=== PATIENT | male | born 1935 | race Caucasian/White ===

== ENCOUNTER 2020-12-01 13:54 | Inpatient (IN) ==
[2020-12-01 16:06] LABS: Basophils # (auto) 0.01 K/uL (0-0.2); Basophils % (auto) 0.1 %; Eosinophils # (auto) 0.05 K/uL (0-0.5); Eosinophils % (auto) 0.6 %; Hematocrit (blood only) 38.5 % (42-52); Hemoglobin 12.7 g/dL (14.0-18.0); Immature Granulocytes # (auto) 0.01 K/uL (0.00-0.02); Immature Granulocytes % (auto) 0.1 %; Lymphocytes # (auto) 1.01 K/uL (1.2-3.4); Lymphocytes % (auto) 11.5 %; Mean Corpuscular Hemoglobin 31.8 pg (25-34); Mean Corpuscular Volume 96.3 fL (80-100); Mean Platelet Volume 11.7 fL (7.4-10.4); Monocytes # (auto) 0.55 K/uL (0.11-0.59); Monocytes % (auto) 6.3 %; Neutrophils # (auto) 7.15 K/uL (1.4-6.5); Neutrophils % (auto) 81.4 %; Platelet Count 254 K/uL (130-400); RDW Coefficient of Variation 15.5 % (11.5-14.5); RDW Standard Deviation 54.8 fL (36.4-46.3); White Blood Count 8.78 K/uL (4.8-10.8)
[2020-12-01 16:28] LABS: Magnesium 1.8 mg/dl (1.8-2.4)
--- NOTE | 2020-12-01 16:36 | XRay Report ---
XR chest 1V portable CLINICAL HISTORY: sob COMPARISON STUDY: No previous studies for comparison. FINDINGS: There is no pneumothorax. A small right pleural effusion is noted. Right lower lung airspac e opacity is present. Moderate cardiomegaly is noted. There is no evidence for overt pulmonary edema. IMPRESSION: 1. Small right pleural effusion. Right lower lung airspace opacity which may reflect an infectious pr ocess or asymmetric pulmonary edema. Radiographic follow-up is recommended to ensure resolution. 2. Moderate cardiomegaly. ACT 112: Negative or not required by law. Electronically signed by: Ron Choudhary M.D. 12/01/2020 4:34 PM
[2020-12-01 16:40] LABS: Albumin Globulin Ratio 0.8 (0.9-2); Albumin Level 3.2 gm/dl (3.4-5.0); BUN Creatinine Ratio 51.3 (10-20); Bilirubin,Total 0.8 mg/dl (0.2-1); Est GFR (African American) 81.3 ml/min; Est GFR (Non-African American) 70.1 ml/min; Globulin 4.1 gm/dl (2.5-4.0); Potassium 4.9 mmol/L (3.5-5.1); Total Protein 7.3 gm/dl (6.4-8.2)
[2020-12-01] MEDS ORDERED: FUROSEMIDE 40 MG/4 ML VIAL IV STA (16:43)
--- NOTE | 2020-12-01 17:31 | Emergency Department Note ---
History of Present Illness General Chief Complaint: Edema To Extremity Stated Complaint: LIGHT HEADED, BLE EDEMA Time Seen by Provider: 12/01/20 15:27 History of Present Illness Provider Complaint: shortness of breath Onset (ago): day(s) (10) Severity: moderate Current Pain Intensity: 0 Relieved By: + nothing Exacerbated By: + nothing Context: + medication noncompliance; no choking/aspiration, no recent travel, no trauma/injury or no elevated blood glucose (Low blood sugars) Known history of: congestive heart failure and diabetes Associated symptoms: + dizziness; no chest pain, no pain with inspiration, no fever, no cough, no wheezing, no sputum production, no orthopnea, no lower extremity pain, no polyuria, no polydipsia, no paresthesias, no palpitations, no carpopedal spasm, no hemoptysis, no diaphoresis, no syncope or no abdominal pain HPI Narrative: Patient also reports fatigue diarrhea and nausea. Patient reports his sugars have been not in control have been Recurrently low. He states he is noncompliant with his diabetes medications. Patient recently presented to [facility] for this and was diagnosed with cellulitis and started on antibiotics. After he started the antibiotics he developed the diarrhea. Patient denies any chest pain. Patient is not on any blood thinners. Related Data Home oxygen amount: as needed at night Home Medications Medication Instructions Recorded Confirmed Type aspirin 81 mg chewable tablet 81 mg PO DAILY 12/01/20 12/01/20 History atorvastatin 80 mg tablet (Lipitor) 80 mg PO DAILY 12/01/20 12/01/20 History azelastine 137 mcg (0.1 %) nasal 1 spray INTRANASAL BID 12/01/20 12/01/20 History spray aerosol cetirizine 10 mg tablet 10 mg PO DAILY 12/01/20 12/01/20 History digoxin 125 mcg (0.125 mg) tablet 125 mcg PO PM 12/01/20 12/01/20 History (Digox) furosemide 20 mg tablet (Lasix) 60 mg PO DAILY 12/01/20 12/01/20 History glipizide 10 mg tablet, extended 10 mg PO DAILY 12/01/20 12/01/20 History release 24 hr lisinopril 5 mg tablet (Zestril) 2.5 mg PO DAILY 12/01/20 12/01/20 History metformin 1,000 mg tablet 1,000 mg PO BIDWMEAL 12/01/20 12/01/20 History metoprolol succinate 25 mg 50 mg PO BID 12/01/20 12/01/20 History tablet,extended release 24 hr (Toprol XL) potassium chloride 10 mEq 20 meq PO DAILY 12/01/20 12/01/20 History tablet,extended release (Klor-Con) vitamin-ferrous sulfate 1 tab PO DAILY 12/01/20 12/01/20 History 27 mg iron-folic acid 0.8 mg tablet rabeprazole 20 mg tablet,delayed 20 mg PO BID 12/01/20 12/01/20 History release (AcipHex) temazepam 7.5 mg capsule (Restoril) 7.5 mg PO HS PRN 12/01/20 12/01/20 History trazodone 100 mg tablet 100 mg PO HS PRN 12/01/20 12/01/20 History Allergies Allergy/AdvReac Type Severity Reaction Status Date / Time No Known Allergies Allergy Unverified 12/01/20 17:09 Past Med/Surg History Medical History (Updated 12/01/20 @ 18:07 by Vasu Schwarz) Aortic stenosis Asthma Atrial fibrillation CHF (congestive heart failure) Diabetes HTN (hypertension) Hyperlipidemia Insomnia Pulmonary hypertension Surgical History (Updated 12/01/20 @ 17:27 by Vasu Schwarz) No pertinent past surgical history Social History Smoking Status: Never smoker Feels Safe at Home: Yes Review of Systems A total of 10 systems reviewed and were otherwise negative Physical Exam Vital Signs: Vital Signs - 24 hr 12/01/20 14:02 12/01/20 15:06 12/01/20 16:10 Temperature 36.1 C L Temperature Source Temporal Artery Sc an Pulse Rate 89 93 H 96 H Pulse Rate from Sp O2 Sensor 97 H 105 H Respiratory Rate 20 24 22 Respiratory Effort / Characteristics Non-Labored Sponta neous Respiratory Depth Normal Respiratory Patter n Regular Blood Pressure 100/57 L 141/78 H 133/89 Blood Pressure Marsha n 71 99 103 Pulse Oximetry 94 91 92 Oxygen Delivery Me thod Room Air Oxygen Flow Rate Sepsis Recent Feve r Within 48 Hours No Sepsis New/Unexpla ined Change in Men opal Status No Sepsis Action Take n by Nursing No Action Required 12/01/20 16:30 12/01/20 17:01 Temperature Temperature Source Pulse Rate 85 97 H Pulse Rate from Sp O2 Sensor 92 H 92 H Respiratory Rate 22 24 Respiratory Effort / Characteristics Respiratory Depth Respiratory Patter n Blood Pressure 119/62 100/70 Blood Pressure Marsha n 81 80 Pulse Oximetry 94 97 Oxygen Delivery Me thod Oxygen Flow Rate 2 Sepsis Recent Feve r Within 48 Hours Sepsis New/Unexpla ined Change in Men opal Status Sepsis Action Take n by Nursing Physical Exam: Physical Exam GENERAL: He is oriented to person, place, and time. He appears well-developed and well-nourished. He does not appear distressed. HENT: Exam performed. - Head: Normocephalic and atraumatic. - Right Ear: External ear normal. No mastoid tenderness. - Left Ear: External ear normal. No mastoid tenderness. - Mouth/Throat: The oropharynx is clear and moist. No trismus in the jaw. No dental abscesses or uvula swelling. No oropharyngeal exudate or tonsillar abscesses. EYES: Conjunctivae and EOM are normal. Pupils are equal, round, and reactive to light. Right eye exhibits no discharge. Left eye exhibits no discharge. No scleral icterus. NECK: Normal range of motion. Neck supple. No JVD present. No spinous process tenderness present. No carotid bruit present. No rigidity. No tracheal deviation and normal range of motion present. No Brudzinski's sign and no Kernig's sign noted. CV: Normal rate, irregular rhythm, normal heart sounds and intact distal pulses. Palpable radial pulses bue. RESP: Diminished breath sounds bilaterally. Inspiratory rales at the bases bilaterally. - Chest Wall: He exhibits no tenderness. ABD: The abdomen is soft. Bowel sounds are normal. He has no distension. No mass is present. There is no tenderness. There is no rebound, no guarding, no Ramirez's sign and no tenderness at McBurney's point. Rovsig negative. MUSC/SKEL: 3+ pitting edema of the bilateral lower extremities. NEURO: He is alert and oriented to person, place, and time. He has normal strength. No cranial nerve deficit or sensory deficit. Coordination and gait normal. GCS eye subscore is 4. GCS verbal subscore is 5. GCS motor subscore is 6. Cerebellar tests wnl. SKIN: No erythema or warmth of the bilateral lower extremities. Stasis dermatitis changes over the bilateral lower extremities.No erythema or warmth over the bilateral lower extremities. PSYCH: He has a normal mood and affect. Behavior is normal. Judgment and thought content normal. Course Course 1527: The patient was evaluated in room B12. A complete history and physical exam was performed Cardiac monitoring: An order was placed for continuous cardiac monitoring. The monitor shows a rate of 100 with atrial fibrilation rhythm 1710: Vital signs stable. Imaging shows cardiomegaly with fluid overload. proBNP and troponin are elevated. White blood cell count and lactic acid level are within normal limits. Patient's glucose is 47. Patient alert oriented x3. Patient was given a turkey sandwich and Gatorade to drink. Patient is not reporting chest pain. Is thought that the troponin elevation is due to his CHF exacerbation and not due to ACS. Patient be admitted to the [facility]ist team will trend the troponin. Discussed with Rachel Dickerson states to admit to Dr. Warner. Administered Medications Discontinued Medications Furosemide (Furosemide 40 Mg/4 Ml Vial) 40 mg IV NOW STA Stop: 12/01/20 16:44 Last Admin: 12/01/20 17:02 Dose: 40 mg Documented by: [id number] Medical Decision Making Laboratory Data Result diagrams: 12/01/20 15:46 12/01/20 15:46 Lab Results 12/01/20 12/01/20 12/01/20 Range/Units 15:46 15:46 15:46 WBC 8.78 (4.8-10.8) K/uL RBC 4.00 L (4.7-6.1) M/uL Hgb 12.7 L (14.0-18.0) g/dL Hct 38.5 L (42-52) % MCV 96.3 (80-100) fL MCH 31.8 (25-34) pg MCHC 33.0 (32-36) g/dL RDW Std Deviation 54.8 H (36.4-46.3) fL RDW Coeff of Woo 15.5 H (11.5-14.5) % Plt Count 254 (130-400) K/uL MPV 11.7 H (7.4-10.4) fL Immature Gran % (Auto) 0.1 % Neut % (Auto) 81.4 % Lymph % (Auto) 11.5 % Johnson % (Auto) 6.3 % Eos % (Auto) 0.6 % Baso % (Auto) 0.1 % Neut # (Auto) 7.15 H (1.4-6.5) K/uL Lymph # (Auto) 1.01 L (1.2-3.4) K/uL Johnson # (Auto) 0.55 (0.11-0.59) K/uL Eos # (Auto) 0.05 (0-0.5) K/uL Baso # (Auto) 0.01 (0-0.2) K/uL Immature Gran # (Auto) 0.01 (0.00-0.02) K/uL Sodium 140 (136-145) mmol/L Potassium 4.9 (3.5-5.1) mmol/L Chloride 108 H (98-107) mmol/L Carbon Dioxide 30 (21-32) mmol/L Anion Gap 2.0 L (3-11) BUN 51 H (7-18) mg/dl Creatinine 0.99 (0.6-1.4) mg/dl Est Cr Clr Drug Dosing 61.0 ml/min Est GFR ( Amer) 81.3 ml/min Est GFR (Non-Af Amer) 70.1 ml/min BUN/Creatinine Ratio 51.3 H (10-20) Glucose 47 L* (70-99) mg/dl Lactate 1.3 (0.4-2.0) mmol/L Calcium 9.0 (8.5-10.1) mg/dl Magnesium (1.8-2.4) mg/dl Total Bilirubin 0.8 (0.2-1) mg/dl AST 30 (15-37) U/L ALT 46 (12-78) U/L Alkaline Phosphatase 161 H (45-117) U/L Troponin I (0-0.045) ng/ml NT-Pro-B Natriuret Pep (0-1800) pg/ml Total Protein 7.3 (6.4-8.2) gm/dl Albumin 3.2 L (3.4-5.0) gm/dl Globulin 4.1 H (2.5-4.0) gm/dl Albumin/Globulin Ratio 0.8 L (0.9-2) Urine Color Urine Appearance (Clear) Urine pH (4.5-7.5) Ur Specific Atlantic (1.000-1.030) Urine Protein (Negative) Urine Glucose (UA) (Negative) Urine Ketones (Negative) Urine Blood (Negative) Urine Nitrite (Negative) Urine Bilirubin (Negative) Urine Urobilinogen (Negative) Ur Leukocyte Esterase (Negative) Urine WBC (Auto) (0-5) /hpf Urine RBC (Auto) (0-4) /hpf U Hyaline Cast (Auto) (0-5) /lpf U Epithel Cells (Auto) (0-5) /lpf Urine Bacteria (Auto) (Negative) Digoxin (0.8-2.0) ng/ml COVID-19 Eval Order SARS-CoV-2 (PCR) (Negative) 12/01/20 12/01/20 12/01/20 Range/Units 15:46 15:46 15:46 WBC (4.8-10.8) K/uL RBC (4.7-6.1) M/uL Hgb (14.0-18.0) g/dL Hct (42-52) % MCV (80-100) fL MCH (25-34) pg MCHC (32-36) g/dL RDW Std Deviation (36.4-46.3) fL RDW Coeff of Woo (11.5-14.5) % Plt Count (130-400) K/uL MPV (7.4-10.4) fL Immature Gran % (Auto) % Neut % (Auto) % Lymph % (Auto) % Johnson % (Auto) % Eos % (Auto) % Baso % (Auto) % Neut # (Auto) (1.4-6.5) K/uL Lymph # (Auto) (1.2-3.4) K/uL Johnson # (Auto) (0.11-0.59) K/uL Eos # (Auto) (0-0.5) K/uL Baso # (Auto) (0-0.2) K/uL Immature Gran # (Auto) (0.00-0.02) K/uL Sodium (136-145) mmol/L Potassium (3.5-5.1) mmol/L Chloride (98-107) mmol/L Carbon Dioxide (21-32) mmol/L Anion Gap (3-11) BUN (7-18) mg/dl Creatinine (0.6-1.4) mg/dl Est Cr Clr Drug Dosing ml/min Est GFR ( Amer) ml/min Est GFR (Non-Af Amer) ml/min BUN/Creatinine Ratio (10-20) Glucose (70-99) mg/dl Lactate (0.4-2.0) mmol/L Calcium (8.5-10.1) mg/dl Magnesium 1.8 (1.8-2.4) mg/dl Total Bilirubin (0.2-1) mg/dl AST (15-37) U/L ALT (12-78) U/L Alkaline Phosphatase (45-117) U/L Troponin I 0.080 H* (0-0.045) ng/ml NT-Pro-B Natriuret Pep 6608 H (0-1800) pg/ml Total Protein (6.4-8.2) gm/dl Albumin (3.4-5.0) gm/dl Globulin (2.5-4.0) gm/dl Albumin/Globulin Ratio (0.9-2) Urine Color Urine Appearance (Clear) Urine pH (4.5-7.5) Ur Specific Atlantic (1.000-1.030) Urine Protein (Negative) Urine Glucose (UA) (Negative) Urine Ketones (Negative) Urine Blood (Negative) Urine Nitrite (Negative) Urine Bilirubin (Negative) Urine Urobilinogen (Negative) Ur Leukocyte Esterase (Negative) Urine WBC (Auto) (0-5) /hpf Urine RBC (Auto) (0-4) /hpf U Hyaline Cast (Auto) (0-5) /lpf U Epithel Cells (Auto) (0-5) /lpf Urine Bacteria (Auto) (Negative) Digoxin 0.7 L (0.8-2.0) ng/ml COVID-19 Eval Order SARS-CoV-2 (PCR) (Negative) 12/01/20 12/01/20 12/01/20 Range/Units 16:10 16:10 17:23 WBC (4.8-10.8) K/uL RBC (4.7-6.1) M/uL Hgb (14.0-18.0) g/dL Hct (42-52) % MCV (80-100) fL MCH (25-34) pg MCHC (32-36) g/dL RDW Std Deviation (36.4-46.3) fL RDW Coeff of Woo (11.5-14.5) % Plt Count (130-400) K/uL MPV (7.4-10.4) fL Immature Gran % (Auto) % Neut % (Auto) % Lymph % (Auto) % Johnson % (Auto) % Eos % (Auto) % Baso % (Auto) % Neut # (Auto) (1.4-6.5) K/uL Lymph # (Auto) (1.2-3.4) K/uL Johnson # (Auto) (0.11-0.59) K/uL Eos # (Auto) (0-0.5) K/uL Baso # (Auto) (0-0.2) K/uL Immature Gran # (Auto) (0.00-0.02) K/uL Sodium (136-145) mmol/L Potassium (3.5-5.1) mmol/L Chloride (98-107) mmol/L Carbon Dioxide (21-32) mmol/L Anion Gap (3-11) BUN (7-18) mg/dl Creatinine (0.6-1.4) mg/dl Est Cr Clr Drug Dosing ml/min Est GFR ( Amer) ml/min Est GFR (Non-Af Amer) ml/min BUN/Creatinine Ratio (10-20) Glucose (70-99) mg/dl Lactate (0.4-2.0) mmol/L Calcium (8.5-10.1) mg/dl Magnesium (1.8-2.4) mg/dl Total Bilirubin (0.2-1) mg/dl AST (15-37) U/L ALT (12-78) U/L Alkaline Phosphatase (45-117) U/L Troponin I (0-0.045) ng/ml NT-Pro-B Natriuret Pep (0-1800) pg/ml Total Protein (6.4-8.2) gm/dl Albumin (3.4-5.0) gm/dl Globulin (2.5-4.0) gm/dl Albumin/Globulin Ratio (0.9-2) Urine Color Yellow Urine Appearance Clear (Clear) Urine pH 5.5 (4.5-7.5) Ur Specific Atlantic 1.015 (1.000-1.030) Urine Protein Trace H (Negative) Urine Glucose (UA) Negative (Negative) Urine Ketones Negative (Negative) Urine Blood Negative (Negative) Urine Nitrite Negative (Negative) Urine Bilirubin Negative (Negative) Urine Urobilinogen Negative (Negative) Ur Leukocyte Esterase Trace H (Negative) Urine WBC (Auto) 1-5 (0-5) /hpf Urine RBC (Auto) 0-4 (0-4) /hpf U Hyaline Cast (Auto) 1-5 (0-5) /lpf U Epithel Cells (Auto) 5-10 H (0-5) /lpf Urine Bacteria (Auto) Negative (Negative) Digoxin (0.8-2.0) ng/ml COVID-19 Eval Order Covid19 at [facility] SARS-CoV-2 (PCR) NEGATIVE (Negative) Imaging Data Radiologist's Impression: Chest X-Ray 12/01/20 15:41 XR chest 1V portable CLINICAL HISTORY: sob COMPARISON STUDY: No previous studies for comparison. FINDINGS: There is no pneumothorax. A small right pleural effusion is noted. Right lower lung airspace opacity is present. Moderate cardiomegaly is noted. There is no evidence for overt pulmonary edema. IMPRESSION: 1. Small right pleural effusion. Right lower lung airspace opacity which may reflect an infectious process or asymmetric pulmonary edema. Radiographic follow-up is recommended to ensure resolution. 2. Moderate cardiomegaly. ACT 112: Negative or not required by law. Electronically signed by: Ron Choudhary M.D. 12/01/2020 4:34 PM ECG Data Interpretation: Atrial fibrillation with rate of 99. QRS 70. QTc 397. No ST elevation or ST depression. MDM Narrative ital signs stable. Imaging shows cardiomegaly with fluid overload. proBNP and troponin are elevated. White blood cell count and lactic acid level are within normal limits. Patient's glucose is 47. Patient alert oriented x3. Patient was given a turkey sandwich and Gatorade to drink. Patient is not reporting chest pain. Is thought that the troponin elevation is due to his CHF exacerbation and not due to ACS. Patient be admitted to the [facility]ist team will trend the troponin. Discussed with Rachel Dickerson states to admit to Dr. Warner. Impression & Plan CHF (congestive heart failure), Hypoglycemia Discharge Plan Visit Data Chief Complaint: Edema To Extremity Stated Complaint: LIGHT HEADED, BLE EDEMA ED Provider: Vasu Schwarz Discharge Problem: CHF (congestive heart failure), Hypoglycemia Patient Disposition: Being Evaluated by Hospitalist Forms Stand Alone Forms: [facility] Prescriptions Prescriptions: No Action atorvastatin [Lipitor] 80 mg tablet 80 mg PO DAILY RF: 0 rabeprazole [AcipHex] 20 mg tablet,delayed release (DR/EC) 20 mg PO BID RF: 0 cetirizine 10 mg Tablet 10 mg PO DAILY RF: 0 27 mg iron- 0.8 mg Tablet 1 tab PO DAILY RF: 0 potassium chloride [Klor-Con 10] 10 mEq tablet extended release 20 meq PO DAILY RF: 0 temazepam [Restoril] 7.5 mg capsule 7.5 mg PO HS PRN (Reason: Sleep) RF: 0 trazodone 100 mg tablet 100 mg PO HS PRN (Reason: Sleep) RF: 0 metformin 1,000 mg tablet 1,000 mg PO BIDWMEAL RF: 0 aspirin [Aspirin Low-Strength] 81 mg Tablet,Chewable 81 mg PO DAILY RF: 0 lisinopril [Zestril] 5 mg tablet 2.5 mg PO DAILY RF: 0 digoxin [Digox] 125 mcg (0.125 mg) tablet 125 mcg PO PM RF: 0 furosemide [Lasix] 20 mg tablet 60 mg PO DAILY RF: 0 metoprolol succinate [Toprol XL] 25 mg tablet extended release 24 hr 50 mg PO BID RF: 0 azelastine 137 mcg (0.1 %) aerosol,spray 1 spray INTRANASAL BID RF: 0 Referrals Referrals: PCP,NO [Primary Care Provider] -
[2020-12-01 17:37] LABS: Appearance Urine Clear (Clear); Bacteria Urine Automated Negative (Negative); Bilirubin Urine Negative (Negative); Blood Urine Negative (Negative); Color Urine Yellow; Glucose Urine UA Negative (Negative); Ketones Urine Negative (Negative); Leukocyte Esterase Urine Trace (Negative); Nitrite Urine Negative (Negative); Protein Urine Trace (Negative); RBC Urine Automated 0-4 /hpf (0-4); Specific Gravity Urine 1.015 (1.000-1.030); Urobilinogen Urine Negative (Negative); pH Urine 5.5 (4.5-7.5)
--- NOTE | 2020-12-01 18:11 | History & Physical Report ---
Date of Service December 01, 2020 Assessment & Plan (1) Acute on chronic HFrEF (heart failure with reduced ejection fraction): (2) Aortic stenosis: (3) Pulmonary hypertension: Plan: This is a 85-year-old male who has significant past medical history of chronic HFrEF, severe , chronic atrial fibrillation not on anticoagulation secondary to recent GI bleed and patient refusal, HTN, HLD, GALEN on CPAP, T2DM with retinopathy who presents to ED secondary to worsening lower extremity x2 weeks. Patient with evidence of acute decompensation of chronic HFrEF, likely right- sided. Last echocardiogram 10/01/2019 revealed EF 40%, diffuse hypokinesis, RV dilated, reduced RV SF, severe aortic stenosis, moderate pulmonary hypertension. Patient with increased lower extremity edema, right pleural effusion, increasing shortness of breath, orthopnea and elevated proBNP at 6608. Admit to PCU Received 40 mg IV Lasix in ED (took home dose 40mgs this a.m., he is to be on 60 but pt noncompliant most days) will start Lasix 40 mg IV twice daily tomorrow Strict I's and O's Daily weights Obtain echocardiogram to reassess ejection fraction and aortic stenosis Consult cardiology Consult PT/OT Patient also with hypoalbuminemia, will consult dietitian Of significance patient wants to undergo TAVR however subsequently developed acute GI bleeding on warfarin and therefore does not wish to pursue further aortic valve repair and currently refusing anticoagulation (4) Atrial fibrillation: Plan: Rate controlled with metoprolol and digoxin Refusing anticoagulation due to prior history of GI bleed [id number] (5) Diabetes: Plan: Last A1c 7.3 on 07/23/2020 On arrival with a BSG in the 40s Hold Metformin, Jardiance, glipizide -patient has not been taking Jardiance at home for the past month secondary to cost Lantus/NovoLog per protocol (6) GALEN (obstructive sleep apnea): Plan: CPAP @ bedtime (7) HTN (hypertension): Plan: blood pressure on lower side, 100/70 On low-dose lisinopril Monitor DVT prophylaxis: Lovenox subcu every 12 hours Dispo: PCU PCP: Lanie Jean PA-C Full code Patient was seen and examined in collaboration with Dr. Warner, please see addendum History of Present Illness Chief Complaint: Increasing lower extremity swelling x 2 weeks. Primary Care Provider: Lanie Ted This is a 85-year-old male who has significant past medical history of chronic HFrEF, severe , chronic atrial fibrillation not on anticoagulation secondary to recent GI bleed and patient refusal, HTN, HLD, GALEN on CPAP, T2DM with retinopathy who presents to ED secondary to worsening lower extremity x2 weeks. is at bedside. Of significance patient was seen and evaluated in [facility] ED on 11/17 secondary to worsening lower extremity swelling as well as redness. Patient admits to being noncompliant with Lasix. During ER evaluation he was noted to have significantly elevated proBNP in the 6000's, and was discharged encouraged to be compliant with oral Lasix. He was also given 5 days of Keflex for possible cellulitis. states over the past 2 weeks she has not noticed any improvement in lower extremities and he is having worsening of his swelling. Patient also complains of increased fatigability, decreased appetite, shortness breath with little exertion, orthopnea and PND. He sleeps on 3 pillows at night. He denies akrlo weight loss as he is actually lost 50 pounds in the last year due to significant decrease in appetite. He does admit to requiring a aortic valve replacement and was actually seen in [place] and ready to undergo procedure when he was found to have a bleeding gastric ulcer secondary to anticoagulation. Since then he has refused anticoagulation and is not willing to go back for procedure. In ED patient remained hemodynamically stable. Lab abnormalities notable for H&H 12.7 and 38.5, BUN 51, creatinine 0.99, glucose 47, troponin 0.080, proBNP 6608, digoxin 0.7. Chest x-ray consistent with small right pleural effusion. He received 40 mg IV Lasix in ED. He is still for put out 200 mL. Allergies Allergy/AdvReac Type Severity Reaction Status Date / Time No Known Allergies Allergy Unverified 12/01/20 17:09 Home Medications Medication Instructions Recorded Confirmed Type aspirin 81 mg chewable tablet 81 mg PO QAM 12/01/20 12/01/20 History atorvastatin 80 mg tablet (Lipitor) 80 mg PO QAM 12/01/20 12/01/20 History azelastine 137 mcg (0.1 %) nasal 1 spray INTRANASAL BID 12/01/20 12/01/20 History spray aerosol cetirizine 10 mg tablet 10 mg PO DAILY 12/01/20 12/01/20 History digoxin 125 mcg (0.125 mg) tablet 125 mcg PO PM 12/01/20 12/01/20 History (Digox) furosemide 20 mg tablet (Lasix) 60 mg PO DAILY 12/01/20 12/01/20 History glipizide 10 mg tablet, extended 10 mg PO DAILY 12/01/20 12/01/20 History release 24 hr lisinopril 5 mg tablet (Zestril) 2.5 mg PO DAILY 12/01/20 12/01/20 History metformin 1,000 mg tablet 1,000 mg PO BIDWMEAL 12/01/20 12/01/20 History metoprolol succinate 25 mg 50 mg PO BID 12/01/20 12/01/20 History tablet,extended release 24 hr (Toprol XL) potassium chloride 10 mEq 20 meq PO DAILY 12/01/20 12/01/20 History tablet,extended release (Klor-Con) vitamin-ferrous sulfate 1 tab PO DAILY 12/01/20 12/01/20 History 27 mg iron-folic acid 0.8 mg tablet rabeprazole 20 mg tablet,delayed 20 mg PO BID 12/01/20 12/01/20 History release (AcipHex) temazepam 7.5 mg capsule (Restoril) 7.5 mg PO HS PRN 12/01/20 12/01/20 History trazodone 100 mg tablet 100 mg PO HS PRN 12/01/20 12/01/20 History Past Med/Surg History Medical History (Updated 12/01/20 @ 18:29 by Rachel Goldman PA-C) Aortic stenosis Asthma Atrial fibrillation CHF (congestive heart failure) Diabetes HTN (hypertension) Hyperlipidemia Insomnia GALEN (obstructive sleep apnea) Pulmonary hypertension Surgical History (Updated 12/01/20 @ 18:16 by Rachel Goldman PA-C) History of esophagogastroduodenoscopy (EGD) Family History (Updated 12/01/20 @ 18:17 by Rachel Goldman PA-C) Father Diabetes Coronary heart disease Mother Coronary heart disease Hypertension Social History (Updated 12/01/20 @ 18:17 by Rachel Goldman PA-C) Smoking Status: Former smoker Smoking End Date: 1994; Hx Alcohol Use: No Hx Substance Use: No Preferred Language: Portuguese Director Dietetics Department Required: No Beliefs That Will Affect Care: None marital status: Current Living Situation: Spouse Current Living Situation Comment: Lives with Other Information That Helps Us Care for You: No Feels Safe at Home: Yes Safety Concerns: Feels Safe At This Time Assistive Devices: CPAP, Oxygen - Continuous and Walker Review of Systems Review of Systems: All systems reviewed & are unremarkable except as noted in HPI & below Physical Exam Physical Exam: Constitutional: WD/WN, elderly, male, hard of hearing vitals as above, NAD, sitting up in bed, pleasant, conversing easily Head: Normocephalic, Atraumatic Eyes: PERRL, conjunctivae normal, anicteric sclerae ENMT: Hard of hearing, external ear and nose normal, oropharynx normal Neck: trachea midline, no thyromegaly normal visual inspection Respiratory: normal respiratory effort, lungs clear to auscultation, no wheeze, rales, rhonchi. Normal insp/exp effort, no accessory muscle use Cardiovascular: Irregular rate, irregular rhythm, harsh 2/6 SD noted RUSB, +3 lower extremity pretibial and pedal edema, pretibial venous stasis insufficiency noted, no warmth vessels: no JVD or carotid bruit Chest: normal inspection of chest Abdomen: normal bowel sounds, soft, nontender, no hepatosplenomegaly Musculoskeletal: no cyanosis or clubbing, extremities motor strength 5/5 Skin: no rashes, warm and dry normal turgor Neurologic: PERRL, EOMI, accommodation nl, no face palsy, no dysarthria CN's II-XI intact bilaterally and moves all extremities Psychiatric: A+Ox3, euthymic affect Lymphatic: no cervical or axillary lymphadenopathy : deferred Results & Data Results & Data ([facility]) Vital Signs (Past 12 Hours) Vital Signs Temp Pulse Resp BP Pulse Ox 12/01/20 17:01 97 H 24 100/70 97 12/01/20 16:30 85 22 119/62 94 12/01/20 16:10 96 H 22 133/89 92 12/01/20 15:06 93 H 24 141/78 H 91 12/01/20 14:02 36.1 C L 89 20 100/57 L 94 Diagnostic Findings Chest X-Ray 12/01/20 15:41 XR chest 1V portable CLINICAL HISTORY: sob COMPARISON STUDY: No previous studies for comparison. FINDINGS: There is no pneumothorax. A small right pleural effusion is noted. Right lower lung airspace opacity is present. Moderate cardiomegaly is noted. There is no evidence for overt pulmonary edema. IMPRESSION: 1. Small right pleural effusion. Right lower lung airspace opacity which may reflect an infectious process or asymmetric pulmonary edema. Radiographic follow -up is recommended to ensure resolution. 2. Moderate cardiomegaly. ACT 112: Negative or not required by law. Electronically signed by: Ron Choudhary M.D. 12/01/2020 4:34 PM Medications Administered Medication List Discontinued Medications Furosemide (Furosemide 40 Mg/4 Ml Vial) 40 mg IV NOW STA Stop: 12/01/20 16:44 Last Admin: 12/01/20 17:02 Dose: 40 mg Documented by: [id number] ECG Rate (beats per minute): 99 Rhythm: atrial fibrillation COVID-19 Results Results COVID-19 Adm Lab Results: RBC 4.00 M/uL (4.7-6.1) L 12/01/20 WBC 8.78 K/uL (4.8-10.8) 12/01/20 Hgb 12.7 g/dL (14.0-18.0) L 12/01/20 Hct 38.5 % (42-52) L 12/01/20 Plt Count 254 K/uL (130-400) 12/01/20 Neutrophils (%) (Auto) 81.4 % 12/01/20 Lymphocytes (%) (Auto) 11.5 % 12/01/20 Monocytes # (Auto) 0.55 K/uL (0.11-0.59) 12/01/20 Eosinophils # (Auto) 0.05 K/uL (0-0.5) 12/01/20 Immature Granulocyte % (Auto) 0.1 % 12/01/20 Neutrophils # (Auto) 7.15 K/uL (1.4-6.5) H 12/01/20 Lymphocytes # (Auto) 1.01 K/uL (1.2-3.4) L 12/01/20 Monocytes # (Auto) 0.55 K/uL (0.11-0.59) 12/01/20 Eosinophils # (Auto) 0.05 K/uL (0-0.5) 12/01/20 Basophils # (Auto) 0.01 K/uL (0-0.2) 12/01/20 Immature Granulocyte # (Auto) 0.01 K/uL (0.00-0.02) 12/01/20 Na 140 mmol/L (136-145) 12/01/20 K 4.9 mmol/L (3.5-5.1) 12/01/20 Cl 108 mmol/L (98-107) H 12/01/20 CO2 30 mmol/L (21-32) 12/01/20 Anion Gap 2.0 (3-11) L 12/01/20 BUN 51 mg/dl (7-18) H 12/01/20 Creatinine 0.99 mg/dl (0.6-1.4) 12/01/20 BUN/Creatinine Ratio 51.3 (10-20) H 12/01/20 Glucose Level 47 mg/dl (70-99) L* 12/01/20 Ca 9.0 mg/dl (8.5-10.1) 12/01/20 Total Bilirubin 0.8 mg/dl (0.2-1) 12/01/20 AST/SGOT 30 U/L (15-37) 12/01/20 ALT/SGPT 46 U/L (12-78) 12/01/20 Alkaline Phosphatase 161 U/L (45-117) H 12/01/20 Total Protein 7.3 gm/dl (6.4-8.2) 12/01/20 Albumin 3.2 gm/dl (3.4-5.0) L 12/01/20 Globulin 4.1 gm/dl (2.5-4.0) H 12/01/20 Albumin/Globulin Ratio 0.8 (0.9-2) L 12/01/20 Troponin I 0.080 ng/ml (0-0.045) H* 12/01/20 GF-Gkr-E-Type Natriuretic Pep 6608 pg/ml (0-1800) H 12/01/20 Procalcitonin Pending 12/01/20 COVID-19 PCR NEGATIVE (Negative) 12/01/20 Chest X-Ray 12/01/20 Code Status & VTE Plan Code Status Full Code VTE Prophylaxis Plan VTE Prophylaxis will be ordered: Yes Supervising Physician Co-Signing Physician Notes I saw this patient with the physician social science research assistant, I participated in the history, physical, review of systems, and physical exam. I reviewed the medications with the patient and the physician social science research assistant and helped reconcile the medications. I helped take a detailed family and social history as well. I formulated the assessment and plan personally with the physician social science research assistant and went over it with the patient. Physical Exam Gen-AAO x 3, NAD, Afebrile, Obese Head-NCAT, EOMI, PERRLA, Anicteric Sclera, No Posterior Pharyngeal Erythema Neck-Supple, No JVD, No Thyromegaly, No Masses, No LAD, No Bruits Lungs-Bilateral Rales, No Rhonchi, No Wheezing, No Crepitus Chest-No S4, +S1, +S2, No S3, No Murmurs, No Rubs, No Gallops, No Ectopy Abdomen-Soft, Bowel Sounds Present, Non Tender, Non Distended, No Hepatomegaly, No Splenomegaly, No Palpable Masses, No Rebound, No Rigidity, No Guarding Musculoskeletal-Full Range of Motion Bilaterally, No CVAT Extremities-No Cyanosis, No Clubbing, 3+PittingEdema, Stasis Changes Nuero-Cranial Nerves II-XII grossly intact, Motor WNL, DTRs WNL, Strength WNL, Non Focal Psych-Normal Mood
[2020-12-01] MEDS ORDERED: DEXTROSE 50% 50 ML SYRINGE IV PRN (19:27)
[2020-12-01] MEDS ORDERED: ACETAMINOPHEN 325 MG TAB PO PRN (19:27)
[2020-12-01] MEDS ORDERED: ONDANSETRON INJ 2 MG/ML 2 ML VIAL IV PRN (19:27)
[2020-12-01] MEDS ORDERED: MAGNESIUM HYDROXIDE SUSP 30 ML UDC PO PRN (19:27)
[2020-12-01] MEDS ORDERED: traZODone HCL 100 MG TAB PO PRN (19:27)
[2020-12-01] MEDS ORDERED: GLUCOSE 10 TABS/TUBE PO PRN (19:27)
[2020-12-01] MEDS ORDERED: CARBOHYDRATES FOR HYPOGLYCEMIA PO PRN (19:27)
[2020-12-01] MEDS ORDERED: POLYETHYLENE (MIRALAX) 17 GM PACK PO PRN (19:27)
[2020-12-01] MEDS ORDERED: GLUCAGON FOR INJ 1 MG VIAL SQ PRN (19:27)
[2020-12-01] MEDS ORDERED: TEMAZEPAM 7.5 MG CAPSULE PO PRN (19:27)
[2020-12-01] MEDS ORDERED: ALUMINUM/MAGNESIUM SUSP 30 ML UDC PO PRN (19:27)
[2020-12-01] MEDS ORDERED: GLUCOSE 40% GEL 15 GM TUBE PO PRN (19:27)
[2020-12-01] MEDS: DIGOXIN 0.125 MG TAB PO SCH (20:55)
[2020-12-01] MEDS: ENOXAPARIN INJ 40 MG/0.4 ML SYR SQ SCH (20:55)
[2020-12-01] MEDS: METOPROLOL SUCC 50MG EXT REL TAB PO SCH (20:56)
[2020-12-01] MEDS: PANTOprazole 40 MG TAB PO SCH (20:56)
[2020-12-01] MEDS ORDERED: INSULIN GLARGINE SOLOSTAR 100 UNITS/ML 3 ML PEN SC SCH (21:00)
[2020-12-01] MEDS: INSULIN ASPART 100 UNITS/ML 3 ML PEN SC SCH (21:32)
[2020-12-02 03:39] LABS: Hematocrit (blood only) 35.4 % (42-52); Hemoglobin 11.4 g/dL (14.0-18.0); Mean Corpuscular Hgb Conc 32.2 g/dL (32-36); Mean Corpuscular Volume 96.2 fL (80-100); Mean Platelet Volume 11.2 fL (7.4-10.4); Platelet Count 224 K/uL (130-400); RDW Coefficient of Variation 15.5 % (11.5-14.5); RDW Standard Deviation 54.7 fL (36.4-46.3); Red Blood Count 3.68 M/uL (4.7-6.1); White Blood Count 10.23 K/uL (4.8-10.8)
[2020-12-02 04:00] LABS: Albumin Level 2.9 gm/dl (3.4-5.0); BUN Creatinine Ratio 51.2 (10-20); Calcium 8.3 mg/dl (8.5-10.1); Est GFR (African American) 81.3 ml/min; Est GFR (Non-African American) 70.1 ml/min; Magnesium 1.8 mg/dl (1.8-2.4); Potassium 5.6 mmol/L (3.5-5.1)
[2020-12-02 04:02] LABS: Albumin Globulin Ratio 0.8 (0.9-2); Bilirubin,Total 0.7 mg/dl (0.2-1); Globulin 3.6 gm/dl (2.5-4.0); Total Protein 6.5 gm/dl (6.4-8.2)
--- NOTE | 2020-12-02 04:09 | Communication Note ---
Date of Service: December 02, 2020 Notified by RN of serum potassium of 5.6. AP Hyperkalemia Lasix early administration IV insulin Hold lisinopril and potassium supplements for now Will relay to AM provider.
[2020-12-02] MEDS ORDERED: FUROSEMIDE 40 MG/4 ML VIAL IV SCH ×2 (04:10→09:00)
[2020-12-02] MEDS ORDERED: XOPENEX/ATROVENT 1.25mg/0.5MG NEB COMBO NEB STA (04:13)
[2020-12-02] MEDS ORDERED: IPRATROPIUM BROMIDE NEB SOLN 0.02% 2.5 ML VIAL INH STA (04:25)
[2020-12-02] MEDS ORDERED: LEVALBUTEROL 1.25MG/0.5ML NEB INH STA (04:25)
[2020-12-02] MEDS ORDERED: INSULIN HUMAN REGULAR PER UNIT 5 UNITS in SYRINGE 4.95 ML IV STA (04:27)
[2020-12-02] MEDS ORDERED: DEXTROSE 50% 50 ML SYRINGE IV STA (04:28)
[2020-12-02] MEDS ORDERED: ALBUMIN 25% 12.5 GM/50 ML VIAL IV ONE (04:30)
[2020-12-02] MEDS: FUROSEMIDE 40 MG in SYRINGE 0 ML IV SCH ×2 (04:41→16:47)
[2020-12-02] MEDS: INSULIN ASPART 100 UNITS/ML 3 ML PEN SC SCH ×4 (07:36→21:39)
[2020-12-02 07:57] LABS: Estimated Average Glucose 131 mg/dl; Hemoglobin A1C 6.2 % (4.5-5.6)
[2020-12-02] MEDS: CETIRIZINE HCL 10 MG TABLET PO SCH (08:01)
[2020-12-02] MEDS: PANTOprazole 40 MG TAB PO SCH ×2 (08:01→20:35)
[2020-12-02] MEDS: METOPROLOL SUCC 50MG EXT REL TAB PO SCH ×2 (08:01→20:34)
[2020-12-02] MEDS: ASPIRIN 81 MG CHEW PO SCH (08:02)
[2020-12-02] MEDS: ATORVASTATIN 40 MG TAB PO SCH (08:02)
[2020-12-02] MEDS ORDERED: lisinopril 2.5 MG TAB PO SCH (09:00)
[2020-12-02] MEDS ORDERED: POTASSIUM CHLORIDE CRTAB 20 MEQ TABCR PO SCH (09:00)
--- NOTE | 2020-12-02 10:32 | Cardiology Consultation ---
Date of Consultation December 02, 2020 Assessment & Plan (1) Acute on chronic diastolic CHF (congestive heart failure): (2) Aortic stenosis: (3) GALEN (obstructive sleep apnea): (4) Pulmonary hypertension: (5) Atrial fibrillation: (6) Gastric ulcer: (7) Elevated troponin: Patient is an 85-year-old male referred for acute decompensated congestive heart failure secondary to valvular disease. He has initially responded to IV diuretics. Troponins are likely elevated secondary to demand issues. He has contraindications to anticoagulation Agree with holding lisinopril in the setting of aortic stenosis Continue prehospital cardiac medications otherwise Watch closely for signs or symptoms of further bleeding, history of dark black stool approximately 2 days ago, prior gastric ulcer Patient has not received Covid vaccination Discussed aortic valve replacement which patient remains reluctant. Overall prognosis concerning in the setting of congestive heart failure secondary to severe aortic stenosis History of Present Illness Reason for Consultation: Decompensated congestive heart failure secondary to valvular heart disease Requesting Physician: Dr. Smallwood Attending Physician: Tesha Smallwood, History of Present Illness Patient is a an 85-year-old male presents with decompensated diastolic/valvular heart failure. His underlying medical issues include 1. Severe calcific aortic stenosis 2. Longstanding persistent atrial fibrillation 3. Hypertension 4. Obstructive sleep apnea with nocturnal oxygen supplementation/CPAP 5. Pulmonary hypertension 6. Gastric ulcer with prior GI bleed,October 2019, patient declined surveillance endoscopy 7. Type 2 diabetes mellitus Patient presents this admission having been referred with increasing lower extremity edema and shortness of breath. History is notable for ER visit on 11/18/2019 with signs and symptoms of volume overload and cellulitis lower extremities. He notes no chest pains tachypalpitations. Did note 1 episode of acute diaphoresis approximately 3 days ago. Is also been aware of one dark black stool but no profound bleeding. No fevers or chills. No headaches or visual changes. Weight has been trending downward with greater than 20 pound weight loss Patient previously suggested to undergo surveillance endoscopy for gastric ulcer which he has declined. Patient has declined anticoagulation. Previously referred for consideration of TAVR, patient declined further evaluation in recent past and still remains reluctant Allergies Allergy/AdvReac Type Severity Reaction Status Date / Time No Known Allergies Allergy Unverified 12/01/20 17:09 Home Medications Medication Instructions Recorded Confirmed Type aspirin 81 mg chewable tablet 81 mg PO QAM 12/01/20 12/01/20 History atorvastatin 80 mg tablet (Lipitor) 80 mg PO QAM 12/01/20 12/01/20 History azelastine 137 mcg (0.1 %) nasal 1 spray INTRANASAL BID 12/01/20 12/01/20 History spray aerosol cetirizine 10 mg tablet 10 mg PO DAILY 12/01/20 12/01/20 History digoxin 125 mcg (0.125 mg) tablet 125 mcg PO PM 12/01/20 12/01/20 History (Digox) ferrous sulfate 325 mg (65 mg 325 mg PO QAM 12/01/20 12/01/20 History iron) tablet furosemide 20 mg tablet (Lasix) 60 mg PO QAM 12/01/20 12/01/20 History glipizide 10 mg tablet, extended 10 mg PO DAILY 12/01/20 12/01/20 History release 24 hr lisinopril 5 mg tablet (Zestril) 2.5 mg PO QAM 12/01/20 12/01/20 History metformin 1,000 mg tablet 1,000 mg PO BIDWMEAL 12/01/20 12/01/20 History metoprolol succinate 25 mg 50 mg PO BID 12/01/20 12/01/20 History tablet,extended release 24 hr (Toprol XL) potassium chloride 10 mEq 10 meq PO BID 12/01/20 12/01/20 History tablet,extended release (Klor-Con) rabeprazole 20 mg tablet,delayed 20 mg PO BID 12/01/20 12/01/20 History release (AcipHex) temazepam 7.5 mg capsule (Restoril) 7.5 mg PO HS PRN 12/01/20 12/01/20 History trazodone 100 mg tablet 100 mg PO HS PRN 12/01/20 12/01/20 History Patient History Medical History Aortic stenosis Asthma Atrial fibrillation CHF (congestive heart failure) Diabetes HTN (hypertension) Hyperlipidemia Insomnia GALEN (obstructive sleep apnea) Pulmonary hypertension Surgical History History of esophagogastroduodenoscopy (EGD) Family History Father Diabetes Coronary heart disease Mother Coronary heart disease Hypertension Social History Smoking Status: Former smoker Smoking End Date: 1994; Hx Alcohol Use: No Hx Substance Use: No Preferred Language: Japanese 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 Beliefs That Will Affect Care: None marital status: Current Living Situation: Spouse Current Living Situation Comment: Lives with Other Information That Helps Us Care for You: No Feels Safe at Home: Yes Safety Concerns: Feels Safe At This Time Assistive Devices: CPAP, Oxygen - Continuous and Walker Review of Systems Review of Systems: All systems reviewed & are unremarkable except as noted in HPI & below Physical Exam Constitutional: WD/WN, vitals as above Eyes: PERRL, conjunctivae normal, anicteric sclerae ENMT: external ear and nose normal, oropharynx normal Neck: trachea midline, no thyromegaly Respiratory: normal respiratory effort, lungs clear to auscultation Cardiovascular: Rate/Rhythm: regular rate and regular rhythm Heart Sounds: normal S1 and normal S2; no gallop and no murmur Palpation: normal PMI Vessels: normal carotid upstroke and radial pulses present; no JVD and no carotid bruit Extremities: no edema Gastrointestinal (Abdomen): normal bowel sounds, soft, nontender, no hepatospl enomegaly Musculoskeletal: no cyanosis or clubbing, extremities motor strength 5/5 Skin: no rashes, warm and dry Neurologic: PERRL, EOMI, accommodation nl, no face palsy, no dysarthria Psychiatric: A+Ox3, euthymic affect Results & Data ([facility]) Vital Signs (Past 12 Hours) Vital Signs Temp Pulse Pulse Pulse Resp BP BP 12/02/20 08:07 36.9 C 92 H 20 120/71 12/02/20 04:56 26 H 12/02/20 03:20 36.4 C L 102 H 20 95/65 L 12/02/20 03:09 93 H 26 H 12/01/20 23:46 93 H 12/01/20 23:13 36.5 C 95 H 18 106/67 Pulse Ox 12/02/20 08:07 95 12/02/20 04:56 92 12/02/20 03:20 98 12/02/20 03:09 92 12/01/20 23:46 12/01/20 23:13 97 Laboratory Results Laboratory Results - last 24 hr 12/01/20 12/01/20 12/01/20 15:46 15:46 15:46 WBC 8.78 RBC 4.00 L Hgb 12.7 L Hct 38.5 L MCV 96.3 MCH 31.8 MCHC 33.0 RDW Std Deviation 54.8 H RDW Coeff of Woo 15.5 H Plt Count 254 MPV 11.7 H Immature Gran % (Auto) 0.1 Neut % (Auto) 81.4 Lymph % (Auto) 11.5 [place] % (Auto) 6.3 Eos % (Auto) 0.6 Baso % (Auto) 0.1 Neut # (Auto) 7.15 H Lymph # (Auto) 1.01 L [place] # (Auto) 0.55 Eos # (Auto) 0.05 Baso # (Auto) 0.01 Immature Gran # (Auto) 0.01 Sodium 140 Potassium 4.9 Chloride 108 H Carbon Dioxide 30 Anion Gap 2.0 L BUN 51 H Creatinine 0.99 Est Cr Clr Drug Dosing 61.0 Est GFR ( Amer) 81.3 Est GFR (Non-Af Amer) 70.1 BUN/Creatinine Ratio 51.3 H Glucose 47 L* POC Glucose Estimat Average Glucose Hemoglobin A1c Lactate 1.3 Calcium 9.0 Magnesium Total Bilirubin 0.8 AST 30 ALT 46 Alkaline Phosphatase 161 H Troponin I NT-Pro-B Natriuret Pep Total Protein 7.3 Albumin 3.2 L Globulin 4.1 H Albumin/Globulin Ratio 0.8 L Procalcitonin Urine Color Urine Appearance Urine pH Ur Specific [place] Urine Protein Urine Glucose (UA) Urine Ketones Urine Blood Urine Nitrite Urine Bilirubin Urine Urobilinogen Ur Leukocyte Esterase Urine WBC (Auto) Urine RBC (Auto) U Hyaline Cast (Auto) U Epithel Cells (Auto) Urine Bacteria (Auto) Digoxin COVID-19 Eval Order SARS-CoV-2 (PCR) 12/01/20 12/01/20 12/01/20 15:46 15:46 15:46 WBC RBC Hgb Hct MCV MCH MCHC RDW Std Deviation RDW Coeff of Woo Plt Count MPV Immature Gran % (Auto) Neut % (Auto) Lymph % (Auto) [place] % (Auto) Eos % (Auto) Baso % (Auto) Neut # (Auto) Lymph # (Auto) [place] # (Auto) Eos # (Auto) Baso # (Auto) Immature Gran # (Auto) Sodium Potassium Chloride Carbon Dioxide Anion Gap BUN Creatinine Est Cr Clr Drug Dosing Est GFR ( Amer) Est GFR (Non-Af Amer) BUN/Creatinine Ratio Glucose POC Glucose Estimat Average Glucose Hemoglobin A1c Lactate Calcium Magnesium 1.8 Total Bilirubin AST ALT Alkaline Phosphatase Troponin I 0.080 H* NT-Pro-B Natriuret Pep 6608 H Total Protein Albumin Globulin Albumin/Globulin Ratio Procalcitonin Urine Color Urine Appearance Urine pH Ur Specific [place] Urine Protein Urine Glucose (UA) Urine Ketones Urine Blood Urine Nitrite Urine Bilirubin Urine Urobilinogen Ur Leukocyte Esterase Urine WBC (Auto) Urine RBC (Auto) U Hyaline Cast (Auto) U Epithel Cells (Auto) Urine Bacteria (Auto) Digoxin 0.7 L COVID-19 Eval Order SARS-CoV-2 (PCR) 12/01/20 12/01/20 12/01/20 15:55 16:10 16:10 WBC RBC Hgb Hct MCV MCH MCHC RDW Std Deviation RDW Coeff of Woo Plt Count MPV Immature Gran % (Auto) Neut % (Auto) Lymph % (Auto) [place] % (Auto) Eos % (Auto) Baso % (Auto) Neut # (Auto) Lymph # (Auto) [place] # (Auto) Eos # (Auto) Baso # (Auto) Immature Gran # (Auto) Sodium Potassium Chloride Carbon Dioxide Anion Gap BUN Creatinine Est Cr Clr Drug Dosing Est GFR ( Amer) Est GFR (Non-Af Amer) BUN/Creatinine Ratio Glucose POC Glucose Estimat Average Glucose Hemoglobin A1c Lactate Calcium Magnesium Total Bilirubin AST ALT Alkaline Phosphatase Troponin I NT-Pro-B Natriuret Pep Total Protein Albumin Globulin Albumin/Globulin Ratio Procalcitonin 0.08 Urine Color Urine Appearance Urine pH Ur Specific [place] Urine Protein Urine Glucose (UA) Urine Ketones Urine Blood Urine Nitrite Urine Bilirubin Urine Urobilinogen Ur Leukocyte Esterase Urine WBC (Auto) Urine RBC (Auto) U Hyaline Cast (Auto) U Epithel Cells (Auto) Urine Bacteria (Auto) Digoxin COVID-19 Eval Order Covid19 at [facility] SARS-CoV-2 (PCR) NEGATIVE 12/01/20 12/01/20 12/01/20 17:23 18:07 20:19 WBC RBC Hgb Hct MCV MCH MCHC RDW Std Deviation RDW Coeff of Woo Plt Count MPV Immature Gran % (Auto) Neut % (Auto) Lymph % (Auto) [place] % (Auto) Eos % (Auto) Baso % (Auto) Neut # (Auto) Lymph # (Auto) [place] # (Auto) Eos # (Auto) Baso # (Auto) Immature Gran # (Auto) Sodium Potassium Chloride Carbon Dioxide Anion Gap BUN Creatinine Est Cr Clr Drug Dosing Est GFR ( Amer) Est GFR (Non-Af Amer) BUN/Creatinine Ratio Glucose POC Glucose 108 H 60 L* Estimat Average Glucose Hemoglobin A1c Lactate Calcium Magnesium Total Bilirubin AST ALT Alkaline Phosphatase Troponin I NT-Pro-B Natriuret Pep Total Protein Albumin Globulin Albumin/Globulin Ratio Procalcitonin Urine Color Yellow Urine Appearance Clear Urine pH 5.5 Ur Specific [place] 1.015 Urine Protein Trace H Urine Glucose (UA) Negative Urine Ketones Negative Urine Blood Negative Urine Nitrite Negative Urine Bilirubin Negative Urine Urobilinogen Negative Ur Leukocyte Esterase Trace H Urine WBC (Auto) 1-5 Urine RBC (Auto) 0-4 U Hyaline Cast (Auto) 1-5 U Epithel Cells (Auto) 5-10 H Urine Bacteria (Auto) Negative Digoxin COVID-19 Eval Order SARS-CoV-2 (PCR) 12/01/20 12/01/20 12/01/20 20:20 20:36 21:30 WBC RBC Hgb Hct MCV MCH MCHC RDW Std Deviation RDW Coeff of Woo Plt Count MPV Immature Gran % (Auto) Neut % (Auto) Lymph % (Auto) [place] % (Auto) Eos % (Auto) Baso % (Auto) Neut # (Auto) Lymph # (Auto) [place] # (Auto) Eos # (Auto) Baso # (Auto) Immature Gran # (Auto) Sodium Potassium Chloride Carbon Dioxide Anion Gap BUN Creatinine Est Cr Clr Drug Dosing Est GFR ( Amer) Est GFR (Non-Af Amer) BUN/Creatinine Ratio Glucose POC Glucose 59 L* 88 Estimat Average Glucose Hemoglobin A1c Lactate Calcium Magnesium Total Bilirubin AST ALT Alkaline Phosphatase Troponin I 0.095 H* NT-Pro-B Natriuret Pep Total Protein Albumin Globulin Albumin/Globulin Ratio Procalcitonin Urine Color Urine Appearance Urine pH Ur Specific [place] Urine Protein Urine Glucose (UA) Urine Ketones Urine Blood Urine Nitrite Urine Bilirubin Urine Urobilinogen Ur Leukocyte Esterase Urine WBC (Auto) Urine RBC (Auto) U Hyaline Cast (Auto) U Epithel Cells (Auto) Urine Bacteria (Auto) Digoxin COVID-19 Eval Order SARS-CoV-2 (PCR) 12/01/20 12/02/20 12/02/20 23:50 03:30 03:30 WBC 10.23 RBC 3.68 L Hgb 11.4 L Hct 35.4 L MCV 96.2 MCH 31.0 MCHC 32.2 RDW Std Deviation 54.7 H RDW Coeff of Woo 15.5 H Plt Count 224 MPV 11.2 H Immature Gran % (Auto) Neut % (Auto) Lymph % (Auto) [place] % (Auto) Eos % (Auto) Baso % (Auto) Neut # (Auto) Lymph # (Auto) [place] # (Auto) Eos # (Auto) Baso # (Auto) Immature Gran # (Auto) Sodium Potassium Chloride Carbon Dioxide Anion Gap BUN Creatinine Est Cr Clr Drug Dosing Est GFR ( Amer) Est GFR (Non-Af Amer) BUN/Creatinine Ratio Glucose POC Glucose 84 Estimat Average Glucose Hemoglobin A1c Lactate Calcium Magnesium Total Bilirubin AST ALT Alkaline Phosphatase Troponin I 0.082 H* NT-Pro-B Natriuret Pep Total Protein Albumin Globulin Albumin/Globulin Ratio Procalcitonin Urine Color Urine Appearance Urine pH Ur Specific [place] Urine Protein Urine Glucose (UA) Urine Ketones Urine Blood Urine Nitrite Urine Bilirubin Urine Urobilinogen Ur Leukocyte Esterase Urine WBC (Auto) Urine RBC (Auto) U Hyaline Cast (Auto) U Epithel Cells (Auto) Urine Bacteria (Auto) Digoxin COVID-19 Eval Order SARS-CoV-2 (PCR) 12/02/20 12/02/20 12/02/20 03:30 03:30 05:30 WBC RBC Hgb Hct MCV MCH MCHC RDW Std Deviation RDW Coeff of Woo Plt Count MPV Immature Gran % (Auto) Neut % (Auto) Lymph % (Auto) [place] % (Auto) Eos % (Auto) Baso % (Auto) Neut # (Auto) Lymph # (Auto) [place] # (Auto) Eos # (Auto) Baso # (Auto) Immature Gran # (Auto) Sodium 140 Potassium 5.6 H Chloride 110 H Carbon Dioxide 31 Anion Gap -1.0 L BUN 51 H Creatinine 0.99 Est Cr Clr Drug Dosing 61.0 Est GFR ( Amer) 81.3 Est GFR (Non-Af Amer) 70.1 BUN/Creatinine Ratio 51.2 H Glucose 94 POC Glucose 125 H Estimat Average Glucose 131 Hemoglobin A1c 6.2 H Lactate Calcium 8.3 L Magnesium 1.8 Total Bilirubin 0.7 AST 27 ALT 40 Alkaline Phosphatase 149 H Troponin I NT-Pro-B Natriuret Pep Total Protein 6.5 Albumin 2.9 L Globulin 3.6 Albumin/Globulin Ratio 0.8 L Procalcitonin Urine Color Urine Appearance Urine pH Ur Specific [place] Urine Protein Urine Glucose (UA) Urine Ketones Urine Blood Urine Nitrite Urine Bilirubin Urine Urobilinogen Ur Leukocyte Esterase Urine WBC (Auto) Urine RBC (Auto) U Hyaline Cast (Auto) U Epithel Cells (Auto) Urine Bacteria (Auto) Digoxin COVID-19 Eval Order SARS-CoV-2 (PCR) 12/02/20 12/02/20 06:09 07:09 WBC RBC Hgb Hct MCV MCH MCHC RDW Std Deviation RDW Coeff of Woo Plt Count MPV Immature Gran % (Auto) Neut % (Auto) Lymph % (Auto) [place] % (Auto) Eos % (Auto) Baso % (Auto) Neut # (Auto) Lymph # (Auto) [place] # (Auto) Eos # (Auto) Baso # (Auto) Immature Gran # (Auto) Sodium Potassium 4.5 D Chloride Carbon Dioxide Anion Gap BUN Creatinine Est Cr Clr Drug Dosing Est GFR ( Amer) Est GFR (Non-Af Amer) BUN/Creatinine Ratio Glucose POC Glucose 88 Estimat Average Glucose Hemoglobin A1c Lactate Calcium Magnesium Total Bilirubin AST ALT Alkaline Phosphatase Troponin I NT-Pro-B Natriuret Pep Total Protein Albumin Globulin Albumin/Globulin Ratio Procalcitonin Urine Color Urine Appearance Urine pH Ur Specific [place] Urine Protein Urine Glucose (UA) Urine Ketones Urine Blood Urine Nitrite Urine Bilirubin Urine Urobilinogen Ur Leukocyte Esterase Urine WBC (Auto) Urine RBC (Auto) U Hyaline Cast (Auto) U Epithel Cells (Auto) Urine Bacteria (Auto) Digoxin COVID-19 Eval Order SARS-CoV-2 (PCR) Diagnostic Findings Echocardiogram 12/02/2020, preliminary review: Moderate left hypertrophy without wall motion abnormality EF 55 to 60% Severe calcific aortic stenosis Mild to moderate pulmonary hypertension
[2020-12-02] MEDS: ENOXAPARIN INJ 40 MG/0.4 ML SYR SQ SCH ×2 (11:11→20:35)
--- NOTE | 2020-12-02 18:34 | Hospitalist Progress Note ---
Date of Service December 02, 2020 Assessment & Plan (1) Acute on chronic HFrEF (heart failure with reduced ejection fraction): Plan: Acute heart failure in setting of severe . Cardiology consulted. Diuresing patient who feels improved. Cont strict I/os and daily standing weights. TEDs ordered (2) Aortic stenosis: Plan: Severe valvulopathy with indications for replacement. Per cardiology note and discussion with patient, he is not interested at this time. (3) Pulmonary hypertension: (4) Atrial fibrillation: Plan: Persistent atrial fibrillation on telemetry. Rate controlled with metoprolol and digoxin, not on anticoagulation due to prior history of GI bleed (5) Diabetes: Plan: Continue with basal bolus insulin. Repeat A1c on 12/02 was 6.2. Hypoglycemia was noted and insulin control was loosened to correction factor only. He is not requiring insulin at this time. Continue to monitor. (6) GALEN (obstructive sleep apnea): Plan: Continue CPAP at bedtime. (7) HTN (hypertension): Plan: Blood pressure on the low side, home lisinopril was held. He continues on furosemide twice daily for diuresis efforts. Continue metoprolol succinate 50 mg p.o. twice daily per home regimen. (8) DVT prophylaxis: Plan: DVT prophylaxis: Lovenox subcu every 12 hours Dispo: PCU Full Code Tesha Smallwood DO [facility] Hospitalist Admission and Anticipated Discharge Date Admission Date: December 01, 2020 Subjective 85-year-old man admitted for acute on chronic heart failure with reduced ejection fraction in setting of severe aortic stenosis Patient denies any angina or chest pain, reports no shortness of breath or dyspnea Reports that he presented for increased swelling and weight gain Denies any syncope Tolerating p.o. Review of Systems Review of Systems: At least ten systems were reviewed and negative except as indicated in HPI above. Physical Exam Physical Exam: CONSTITUTIONAL: obese, vitals as above, generally well- appearing EYES: normal conjunctivae, no scleral icterus ENT: external ear and nose normal, oropharynx clear, MMM NECK: trachea midline RESPIRATORY: clear to auscultation bilaterally, no crackles, rales or wheezes, normal respiratory effort CARDIOVASCULAR: regular rate and rhythm, 3/6 SD heard throughout precordium, no gallops or rubs, no JVD, 3+ pitting edema to thighs GASTROINTESTINAL: soft, protuberant, nontender, nondistended MUSCULOSKELETAL: strength 5/5 throughout, head is normocephalic and atraumatic SKIN: warm and dry NEUROLOGIC: CN 2-12 grossly intact, normal cognition, normal speech, no tremor, no gross focal deficits. PSYCHIATRIC: alert cooperative and oriented to person, place and time. Results & Data Results & Data ([facility]) Vital Signs (Past 12 Hours) Vital Signs Temp Pulse Pulse Resp BP Pulse Ox 12/02/20 15:17 36.7 C 75 21 95/56 L 98 12/02/20 14:55 86 12/02/20 11:18 36.8 C 86 19 94/53 L 97 12/02/20 08:07 36.9 C 92 H 20 120/71 95 12/02/20 08:00 95 H Laboratory Results Short CBC 12/02/20 Range/Units 03:30 WBC 10.23 (4.8-10.8) K/uL Hgb 11.4 L (14.0-18.0) g/dL Hct 35.4 L (42-52) % Plt Count 224 (130-400) K/uL BMP 12/02/20 12/02/20 03:30 06:09 Sodium 140 Potassium 5.6 H 4.5 D Chloride 110 H Carbon Dioxide 31 BUN 51 H Creatinine 0.99 Glucose 94 Calcium 8.3 L Cardiac Enzymes 12/01/20 12/02/20 Range/Units 21:30 03:30 Troponin I 0.095 H* 0.082 H* (0-0.045) ng/ml Liver Function 12/02/20 Range/Units 03:30 Total Bilirubin 0.7 (0.2-1) mg/dl AST 27 (15-37) U/L ALT 40 (12-78) U/L Alkaline Phosphatase 149 H (45-117) U/L Albumin 2.9 L (3.4-5.0) gm/dl Medications Administered Current Inpatient Medications Acetaminophen (Acetaminophen 325 Mg Tab) 650 mg PO Q4H PRN PRN Reason: Pain or Fever Stop: 12/31/20 19:26 Al Hydrox/Mg Hydrox/Simethicone (Aluminum/Magnesium Susp 30 Ml Udc) 15 ml PO Q4H PRN PRN Reason: Dyspepsia Stop: 12/31/20 19:26 Aspirin (Aspirin 81 Mg Chew) 81 mg PO DAILY SANTIAGO Stop: 01/01/21 08:59 Last Admin: 12/02/20 08:02 Dose: 81 mg Documented by: Atorvastatin Calcium (Atorvastatin 40 Mg Tab) 80 mg PO DAILY SANTIAGO Stop: 01/01/21 08:59 Last Admin: 12/02/20 08:02 Dose: 80 mg Documented by: Cetirizine HCl (Cetirizine Hcl 10 Mg Tablet) 10 mg PO DAILY SANTIAGO Stop: 01/01/21 08:59 Last Admin: 12/02/20 08:01 Dose: 10 mg Documented by: Dextrose (Dextrose 50% 50 Ml Syringe) 25 - 50 ml IV UD PRN; Protocol PRN Reason: Hypoglycemia Protocol Stop: 12/31/20 19:26 Digoxin (Digoxin 0.125 Mg Tab) 0.125 mg PO PM SANTIAGO Stop: 12/31/20 20:59 Last Admin: 12/01/20 20:55 Dose: 0.125 mg Documented by: Enoxaparin Sodium (Enoxaparin Inj 40 Mg/0.4 Ml Syr) 40 mg SQ Q12H S[facility]AGO Stop: 12/31/20 21:59 Last Admin: 12/02/20 11:11 Dose: 40 mg Documented by: Glucagon (Glucagon For Inj 1 Mg Vial) 1 mg SQ UD PRN; Protocol PRN Reason: Hypoglycemia Protocol Stop: 12/31/20 19:26 Glucose (Glucose 10 Tabs/Tube) 4 - 8 tabs PO UD PRN; Protocol PRN Reason: Hypoglycemia Protocol Stop: 12/31/20 19:26 Glucose (Glucose 40% Gel 15 Gm Tube) 15 - 30 gm PO UD PRN; Protocol PRN Reason: Hypoglycemia Protocol Stop: 12/31/20 19:26 Furosemide 40 mg/ Syringe 4 mls @ 4 mls/min IV [id number] SANTIAGO Stop: 01/01/21 04:29 Last Admin: 12/02/20 16:47 Dose: 4 mls/min Documented by: Insulin Aspart (Insulin Aspart 100 Units/Ml 3 Ml Pen) 0 units SC ACHS S[facility]IAGO Stop: 12/31/20 20:59 Last Admin: 12/02/20 16:45 Dose: Not Given Documented by: Magnesium Hydroxide (Magnesium Hydroxide Susp 30 Ml Udc) 30 ml PO Q12H PRN PRN Reason: Constipation Stop: 12/31/20 19:26 Metoprolol Succinate (Metoprolol Succ 50mg Ext Rel Tab) 50 mg PO BID [facility] Stop: 12/31/20 20:59 Last Admin: 12/02/20 08:01 Dose: 50 mg Documented by: Miscellaneous (Carbohydrates For Hypoglycemia ) 15 - 30 gm PO UD PRN PRN Reason: Hypoglycemia Protocol Stop: 12/31/20 19:26 Last Admin: 12/01/20 20:23 Dose: 15 gm Documented by: Tosinaneous (Order Awaiting Action [Azelastine Nasal [place]]) 1 ea N/A QS [facility] Stop: 01/01/21 00:00 Last Admin: 12/02/20 16:44 Dose: Not Given Documented by: Ondansetron HCl (Ondansetron Inj 2 Mg/Ml 2 Ml Vial) 4 mg IV Q6H PRN PRN Reason: Nausea Stop: 12/31/20 19:26 Pantoprazole Sodium (Pantoprazole 40 Mg Tab) 40 mg PO BID [facility]; Protocol Stop: 12/31/20 20:59 Last Admin: 12/02/20 08:01 Dose: 40 mg Documented by: Polyethylene Glycol (Polyethylene (Miralax) 17 Gm Pack) 17 gm PO DAILY PRN PRN Reason: Constipation Stop: 12/31/20 19:26 Temazepam (Temazepam 7.5 Mg Capsule) 7.5 mg PO HS PRN PRN Reason: Sleep Stop: 12/31/20 19:26 Last Admin: 12/01/20 20:54 Dose: 7.5 mg Documented by: Trazodone HCl (Trazodone Hcl 100 Mg Tab) 100 mg PO HS PRN PRN Reason: Sleep Stop: 12/31/20 19:26 Last Admin: 12/01/20 20:56 Dose: 100 mg Documented by:
[2020-12-02] MEDS: DIGOXIN 0.125 MG TAB PO SCH (20:34)
--- NOTE | 2020-12-03 05:34 | Electrocardiogram Report ---
Test Reason : Blood Pressure : / mmHG Vent. Rate : 099 BPM Atrial Rate : 092 BPM P-R Int : 000 ms QRS Dur : 070 ms QT Int : 310 ms P-R-T Axes : 000 041 005 degrees QTc Int : 397 ms Poor data quality, interpretation may be adversely affected Atrial fibrillation Nonspecific ST abnormality Abnormal ECG No previous ECGs available Confirmed by Kenrick King ([id number]) on 12/03/2020 5:34:03 AM Referred By: REFERRED SELF Confirmed By:Kenrick King
[2020-12-03] MEDS: INSULIN ASPART 100 UNITS/ML 3 ML PEN SC SCH ×4 (08:35→21:13)
[2020-12-03] MEDS: METOPROLOL SUCC 50MG EXT REL TAB PO SCH ×2 (08:36→21:12)
[2020-12-03] MEDS: FUROSEMIDE 40 MG in SYRINGE 0 ML IV SCH ×2 (08:36→16:59)
[2020-12-03] MEDS: ASPIRIN 81 MG CHEW PO SCH (08:37)
[2020-12-03] MEDS: ATORVASTATIN 40 MG TAB PO SCH (08:37)
[2020-12-03] MEDS: CETIRIZINE HCL 10 MG TABLET PO SCH (08:37)
[2020-12-03] MEDS: PANTOprazole 40 MG TAB PO SCH ×2 (08:37→21:13)
[2020-12-03 09:15] LABS: BUN Creatinine Ratio 40.3 (10-20); Calcium 8.5 mg/dl (8.5-10.1); Creatinine Clr Calc Pharmacy 46.4 ml/min; Est GFR (African American) 60.2 ml/min; Est GFR (Non-African American) 51.9 ml/min; Magnesium 1.5 mg/dl (1.8-2.4); Potassium 5.1 mmol/L (3.5-5.1)
[2020-12-03] MEDS: ENOXAPARIN INJ 40 MG/0.4 ML SYR SQ SCH ×2 (10:06→21:12)
[2020-12-03] MEDS: MAGNESIUM SULFATE / D5W 1 GM/100 ML BAG IV SCH ×2 (10:35→12:45)
--- NOTE | 2020-12-03 11:04 | Cardiology Progress Note ---
Date of Service December 03, 2020 Assessment & Plan (1) Acute on chronic diastolic CHF (congestive heart failure): (2) Aortic stenosis: (3) Gastric ulcer: (4) Atrial fibrillation: (5) Pulmonary hypertension: Plan: 85-year-old male admitted with decompensated diastolic heart failure secondary to severe valvular disease, severe aortic stenosis. Patient manifesting diuresis with IV therapies would continue. Patient declining anticoagulation and consideration for valve replacement at this time. Will need close follow-up with cardiology Vicente on discharge CHF instructions to be given Admission and Anticipated Discharge Date Admission Date: December 01, 2020 Subjective Patient seen and examined, chart, medications, telemetry reviewed. Brief run of nonsustained ventricular tachycardia last night asymptomatic 11 beats in duration. Otherwise stable telemetry with chronic atrial fibrillation. Patient continues to diurese well No chest pain or shortness of breath no dizziness or lightheadedness. Review of Systems Review of Systems: All systems reviewed & are unremarkable except as noted in Subjective Physical Exam Constitutional: WD/WN, vitals as above Eyes: PERRL, conjunctivae normal, anicteric sclerae ENMT: external ear and nose normal, oropharynx normal Neck: trachea midline, no thyromegaly Respiratory: Auscultation: + diminished lung sounds Cardiovascular: Rate/Rhythm: + irregularly irregular Heart Sounds: + murmur (Harsh grade 3/6 systolic murmur no diastolic); no gallop Palpation: normal PMI Vessels: normal carotid upstroke and radial pulses present; no JVD and no carotid bruit Extremities: + edema (2+) Gastrointestinal (Abdomen): normal bowel sounds, soft, nontender, no hepatosplenomegaly Inspection/Auscultation: + abdomen distended (Mild) Musculoskeletal: no cyanosis or clubbing, extremities motor strength 5/5 Skin: no rashes, warm and dry Neurologic: PERRL, EOMI, accommodation nl, no face palsy, no dysarthria Psychiatric: A+Ox3, euthymic affect Results & Data ([facility]) Vital Signs (Past 12 Hours) Vital Signs Temp Pulse Pulse Resp BP BP Pulse Ox 12/03/20 07:51 36.5 C 84 22 121/67 96 12/03/20 07:05 79 12/03/20 03:41 36.4 C L 88 18 106/60 98 Laboratory Results Laboratory Results - last 24 hr 12/02/20 12/02/20 12/02/20 11:31 16:08 20:46 Sodium Potassium Chloride Carbon Dioxide Anion Gap BUN Creatinine Est Cr Clr Drug Dosing Est GFR ( Amer) Est GFR (Non-Af Amer) BUN/Creatinine Ratio Glucose POC Glucose 95 123 H 171 H Calcium Magnesium 12/03/20 12/03/20 07:25 08:45 Sodium 140 Potassium 5.1 Chloride 107 Carbon Dioxide 33 H Anion Gap -1.0 L BUN 51 H Creatinine 1.27 Est Cr Clr Drug Dosing 46.4 Est GFR ( Amer) 60.2 Est GFR (Non-Af Amer) 51.9 BUN/Creatinine Ratio 40.3 H Glucose 138 H POC Glucose 108 H Calcium 8.5 Magnesium 1.5 L
--- NOTE | 2020-12-03 13:41 | Hospitalist Progress Note ---
Date of Service December 03, 2020 Assessment & Plan (1) Acute on chronic HFrEF (heart failure with reduced ejection fraction): Plan: Acute heart failure in setting of severe . Cardiology consulted. Diuresing patient who feels improved. Cont strict I/os and daily standing weights. TEDs ordered (2) Aortic stenosis: Plan: Severe valvulopathy with indications for replacement. Per cardiology note and discussion with patient, he is not interested at this time. (3) Pulmonary hypertension: Plan: noted on records. (4) Atrial fibrillation: Plan: Persistent atrial fibrillation on telemetry. Rate controlled with metoprolol and digoxin, not on anticoagulation due to prior history of GI bleed (5) Diabetes: Plan: Continue with basal bolus insulin. Repeat A1c on 12/02 was 6.2. Hypoglycemia was noted and insulin control was loosened to correction factor only. He is not requiring insulin at this time. Continue to monitor. (6) GALEN (obstructive sleep apnea): Plan: Continue CPAP at bedtime. (7) HTN (hypertension): Plan: Blood pressure on the low side, home lisinopril was held. He continues on furosemide twice daily for diuresis efforts. Continue metoprolol succinate 50 mg p.o. twice daily per home regimen. (8) DVT prophylaxis: Plan: DVT prophylaxis: Lovenox subcu every 12 hours Dispo: PCU Full Code Tesha Smallwood DO [facility] Hospitalist Admission and Anticipated Discharge Date Admission Date: December 01, 2020 Subjective 85-year-old man admitted for acute on chronic heart failure with reduced ejection fraction in setting of severe aortic stenosis Patient denies any angina or chest pain, reports no shortness of breath or dyspnea Reports that he presented for increased swelling and weight gain which is improved He is wearing the SAFIA hose that were recommended. Remains in afib on the monitor. Review of Systems Review of Systems: At least ten systems were reviewed and negative except as indicated in HPI above. Physical Exam Physical Exam: CONSTITUTIONAL: obese, vitals as above, generally well- appearing EYES: normal conjunctivae, no scleral icterus ENT: external ear and nose normal, oropharynx clear, MMM NECK: trachea midline RESPIRATORY: clear to auscultation bilaterally, mild crackles at bases bilaterally, no rales or wheezes, normal respiratory effort CARDIOVASCULAR: regular rate and rhythm, 3/6 SD heard throughout precordium, no gallops or rubs, no JVD, 2+ pitting edema to thighs GASTROINTESTINAL: soft, protuberant, nontender, nondistended MUSCULOSKELETAL: strength 5/5 throughout, head is normocephalic and atraumatic SKIN: warm and dry NEUROLOGIC: CN 2-12 grossly intact, normal cognition, normal speech, no tremor, no gross focal deficits. PSYCHIATRIC: alert cooperative and oriented to person, place and time. Results & Data Results & Data ([facility]) Vital Signs (Past 12 Hours) Vital Signs Temp Pulse Pulse Resp BP BP Pulse Ox 12/03/20 11:36 36.9 C 80 18 112/58 L 98 12/03/20 07:51 36.5 C 84 22 121/67 96 12/03/20 07:05 79 12/03/20 03:41 36.4 C L 88 18 106/60 98 Laboratory Results [facility] 12/03/20 08:45 Sodium 140 Potassium 5.1 Chloride 107 Carbon Dioxide 33 H BUN 51 H Creatinine 1.27 Glucose 138 H Calcium 8.5 Medications Administered Current Inpatient Medications Acetaminophen (Acetaminophen 325 Mg Tab) 650 mg PO Q4H PRN PRN Reason: Pain or Fever Stop: 12/31/20 19:26 Al Hydrox/Mg Hydrox/Simethicone (Aluminum/Magnesium Susp 30 Ml Udc) 15 ml PO Q4H PRN PRN Reason: Dyspepsia Stop: 12/31/20 19:26 Aspirin (Aspirin 81 Mg Chew) 81 mg PO DAILY SATNIAGO Stop: 01/01/21 08:59 Last Admin: 12/03/20 08:37 Dose: 81 mg Documented by: Atorvastatin Calcium (Atorvastatin 40 Mg Tab) 80 mg PO DAILY SANTIAGO Stop: 01/01/21 08:59 Last Admin: 12/03/20 08:37 Dose: 80 mg Documented by: Cetirizine HCl (Cetirizine Hcl 10 Mg Tablet) 10 mg PO DAILY SANTIAGO Stop: 01/01/21 08:59 Last Admin: 12/03/20 08:37 Dose: 10 mg Documented by: Dextrose (Dextrose 50% 50 Ml Syringe) 25 - 50 ml IV UD PRN; Protocol PRN Reason: Hypoglycemia Protocol Stop: 12/31/20 19:26 Digoxin (Digoxin 0.125 Mg Tab) 0.125 mg PO PM SANTIAGO Stop: 12/31/20 20:59 Last Admin: 12/02/20 20:34 Dose: 0.125 mg Documented by: Enoxaparin Sodium (Enoxaparin Inj 40 Mg/0.4 Ml Syr) 40 mg SQ Q12H SANTIAGO Stop: 12/31/20 21:59 Last Admin: 12/03/20 10:06 Dose: 40 mg Documented by: Glucagon (Glucagon For Inj 1 Mg Vial) 1 mg SQ UD PRN; Protocol PRN Reason: Hypoglycemia Protocol Stop: 12/31/20 19:26 Glucose (Glucose 10 Tabs/Tube) 4 - 8 tabs PO UD PRN; Protocol PRN Reason: Hypoglycemia Protocol Stop: 12/31/20 19:26 Glucose (Glucose 40% Gel 15 Gm Tube) 15 - 30 gm PO UD PRN; Protocol PRN Reason: Hypoglycemia Protocol Stop: 12/31/20 19:26 Furosemide 40 mg/ Syringe 4 mls @ 4 mls/min IV [id number] SANTIAGO Stop: 01/01/21 04:29 Last Admin: 12/03/20 08:36 Dose: 4 mls/min Documented by: Magnesium Sulfate/Dextrose (Magnesium Sulfate / D5w) 1 gm in 100 mls @ 50 mls/hr IV Q2H SANTIAGO Stop: 12/03/20 14:29 Last Admin: 12/03/20 12:45 Dose: 50 mls/hr Documented by: Insulin Aspart (Insulin Aspart 100 Units/Ml 3 Ml Pen) 0 units SC ACHS SANTIAGO Stop: 12/31/20 20:59 Last Admin: 12/03/20 11:50 Dose: Not Given Documented by: Magnesium Hydroxide (Magnesium Hydroxide Susp 30 Ml Udc) 30 ml PO Q12H PRN PRN Reason: Constipation Stop: 12/31/20 19:26 Metoprolol Succinate (Metoprolol Succ 50mg Ext Rel Tab) 50 mg PO BID SANTIAGO Stop: 12/31/20 20:59 Last Admin: 12/03/20 08:36 Dose: 50 mg Documented by: Miscellaneous (Carbohydrates For Hypoglycemia ) 15 - 30 gm PO UD PRN PRN Reason: Hypoglycemia Protocol Stop: 12/31/20 19:26 Last Admin: 12/01/20 20:23 Dose: 15 gm Documented by: Miscellaneous (Order Awaiting Action [Azelastine Nasal [place]]) 1 ea N/A QS SANTIAGO Stop: 01/01/21 00:00 Last Admin: 12/03/20 08:36 Dose: Not Given Documented by: Ondansetron HCl (Ondansetron Inj 2 Mg/Ml 2 Ml Vial) 4 mg IV Q6H PRN PRN Reason: Nausea Stop: 12/31/20 19:26 Pantoprazole Sodium (Pantoprazole 40 Mg Tab) 40 mg PO BID SANTIAGO; Protocol Stop: 12/31/20 20:59 Last Admin: 12/03/20 08:37 Dose: 40 mg Documented by: Polyethylene Glycol (Polyethylene (Miralax) 17 Gm Pack) 17 gm PO DAILY PRN PRN Reason: Constipation Stop: 12/31/20 19:26 Temazepam (Temazepam 7.5 Mg Capsule) 7.5 mg PO HS PRN PRN Reason: Sleep Stop: 12/31/20 19:26 Last Admin: 12/01/20 20:54 Dose: 7.5 mg Documented by: Trazodone HCl (Trazodone Hcl 100 Mg Tab) 100 mg PO HS PRN PRN Reason: Sleep Stop: 12/31/20 19:26 Last Admin: 12/01/20 20:56 Dose: 100 mg Documented by:
[2020-12-03] MEDS: DIGOXIN 0.125 MG TAB PO SCH (21:12)
[2020-12-04 06:02] LABS: Hematocrit (blood only) 36.3 % (42-52); Hemoglobin 11.5 g/dL (14.0-18.0); Mean Corpuscular Hemoglobin 31.2 pg (25-34); Mean Corpuscular Hgb Conc 31.7 g/dL (32-36); Mean Corpuscular Volume 98.4 fL (80-100); Mean Platelet Volume 10.9 fL (7.4-10.4); Platelet Count 240 K/uL (130-400); RDW Coefficient of Variation 15.1 % (11.5-14.5); RDW Standard Deviation 55.1 fL (36.4-46.3); Red Blood Count 3.69 M/uL (4.7-6.1); White Blood Count 9.36 K/uL (4.8-10.8)
[2020-12-04 06:28] LABS: BUN Creatinine Ratio 38.3 (10-20); Calcium 8.3 mg/dl (8.5-10.1); Creatinine Clr Calc Pharmacy 42.1 ml/min; Est GFR (African American) 53.5 ml/min; Est GFR (Non-African American) 46.1 ml/min; Potassium 4.6 mmol/L (3.5-5.1)
[2020-12-04] MEDS: INSULIN ASPART 100 UNITS/ML 3 ML PEN SC SCH ×4 (07:58→21:20)
[2020-12-04] MEDS: PANTOprazole 40 MG TAB PO SCH ×2 (08:24→20:25)
[2020-12-04] MEDS: METOPROLOL SUCC 50MG EXT REL TAB PO SCH ×2 (08:24→20:26)
[2020-12-04] MEDS: FUROSEMIDE 40 MG in SYRINGE 0 ML IV SCH ×3 (08:24→20:25)
[2020-12-04] MEDS: CETIRIZINE HCL 10 MG TABLET PO SCH (08:24)
[2020-12-04] MEDS: ATORVASTATIN 40 MG TAB PO SCH (08:24)
[2020-12-04] MEDS: ASPIRIN 81 MG CHEW PO SCH (08:25)
[2020-12-04] MEDS: ENOXAPARIN INJ 40 MG/0.4 ML SYR SQ SCH ×2 (08:25→20:26)
--- NOTE | 2020-12-04 10:08 | Cardiology Progress Note ---
Date of Service December 04, 2020 Assessment & Plan (1) Acute on chronic diastolic CHF (congestive heart failure): (2) Aortic stenosis: (3) Gastric ulcer: (4) Atrial fibrillation: (5) Pulmonary hypertension: Plan: 85-year-old male admitted with decompensated diastolic heart failure secondary to severe valvular disease, severe aortic stenosis. Patient manifesting diuresis with IV therapies We will increase furosemide to 40 mg 3 times daily IV Maintain telemetry Continue oxygen and CPAP supplementation at night Admission and Anticipated Discharge Date Admission Date: December 01, 2020 Subjective Patient was seen and examined, chart, medications, telemetry reviewed. No cardiac complaints overnight. Slowly diuresing with persistent lower extremity edema. No chest pains, dizziness or lightheadedness. No bleeding difficulties Telemetry with persistent atrial fibrillation one 8 beat run of ventricular tachycardia nocturnally Physical Exam Constitutional: WD/WN, vitals as above Eyes: PERRL, conjunctivae normal, anicteric sclerae ENMT: external ear and nose normal, oropharynx normal Neck: trachea midline, no thyromegaly Respiratory: normal respiratory effort, lungs clear to auscultation Auscultation: + diminished lung sounds Cardiovascular: Rate/Rhythm: + irregularly irregular Heart Sounds: + murmur (Harsh grade 3/6 systolic murmur no diastolic); no gallop Palpation: normal PMI Vessels: normal carotid upstroke and radial pulses present; no JVD and no carotid bruit Extremities: + edema (2+) Gastrointestinal (Abdomen): normal bowel sounds, soft, nontender, no hepatosplenomegaly Inspection/Auscultation: + abdomen distended (Mild) Musculoskeletal: no cyanosis or clubbing, extremities motor strength 5/5 Skin: no rashes, warm and dry Neurologic: PERRL, EOMI, accommodation nl, no face palsy, no dysarthria Psychiatric: A+Ox3, euthymic affect Results & Data ([facility]) Vital Signs (Past 12 Hours) Vital Signs Temp Pulse Pulse Resp BP BP Pulse Ox 12/04/20 08:18 36.6 C 85 19 125/77 98 12/04/20 08:00 82 12/04/20 04:12 36.6 C 83 20 107/73 93 12/04/20 02:36 77 28 H 95 12/03/20 22:58 36.6 C 88 18 126/79 99 Laboratory Results Laboratory Results - last 24 hr 12/03/20 12/03/20 12/03/20 11:36 16:19 20:41 WBC RBC Hgb Hct MCV MCH MCHC RDW Std Deviation RDW Coeff of Woo Plt Count MPV Sodium Potassium Chloride Carbon Dioxide Anion Gap BUN Creatinine Est Cr Clr Drug Dosing Est GFR ( Amer) Est GFR (Non-Af Amer) BUN/Creatinine Ratio Glucose POC Glucose 134 H 140 H 230 H Calcium 12/04/20 12/04/20 12/04/20 05:49 05:49 07:06 WBC 9.36 RBC 3.69 L Hgb 11.5 L Hct 36.3 L MCV 98.4 MCH 31.2 MCHC 31.7 L RDW Std Deviation 55.1 H RDW Coeff of Woo 15.1 H Plt Count 240 MPV 10.9 H Sodium 141 Potassium 4.6 Chloride 107 Carbon Dioxide 34 H Anion Gap 0 L BUN 54 H Creatinine 1.40 Est Cr Clr Drug Dosing 42.1 Est GFR ( Amer) 53.5 Est GFR (Non-Af Amer) 46.1 BUN/Creatinine Ratio 38.3 H Glucose 131 H POC Glucose 127 H Calcium 8.3 L
--- NOTE | 2020-12-04 16:51 | Hospitalist Progress Note ---
Date of Service December 04, 2020 Assessment & Plan (1) Acute on chronic diastolic CHF (congestive heart failure): Plan: Presented with increasing lower extremity edema for 2 weeks with increasing shortness of breath Has acute on chronic diastolic heart failure. Echo showed: Moderate concentric LVH with paradoxical septal motion consistent with right ventricular volume overload. EF 55 to 60%. Severe calcific aortic valve stenosis. Trace MR and trace TR and right ventricle is mildly dilated Appreciate cardiology input and recommendation No evidence of ACS We will continue intravenous Lasix 40 mg 3 times daily Minimally improved (2) Acute on chronic HFrEF (heart failure with reduced ejection fraction): Plan: Acute on chronic HFrEF has been ruled out by echo (3) Aortic stenosis: Plan: Severe valvulopathy with indications for replacement. Per cardiology note and discussion with patient, he is not interested at this t [facility]. Aortic stenosis is contributing the heart failure (4) Pulmonary hypertension: Plan: noted on records. Right ventricular systolic pressure is elevated at 40 to 50 mmHg (5) Atrial fibrillation: Plan: Persistent atrial fibrillation on telemetry. Rate controlled with metoprolol and digoxin, not on anticoagulation due to prior history of GI bleed (6) Diabetes: Plan: Continue with basal bolus insulin. Repeat A1c on 12/02 was 6.2. Hypoglycemia was noted and insulin control was loosened to correction factor only. He is not requiring insulin at this time. Continue to monitor. (7) GALEN (obstructive sleep apnea): Plan: Continue CPAP at bedtime. (8) HTN (hypertension): Plan: Blood pressure on the low side, home lisinopril was held. He continues on furosemide twice daily for diuresis efforts. Continue metoprolol succinate 50 mg p.o. twice daily per home regimen. (9) DVT prophylaxis: Plan: DVT prophylaxis: Lovenox subcu every 12 hours Dispo: PCU Full Code Admission and Anticipated Discharge Date Admission Date: December 01, 2020 Subjective 12/04/2020 The patient was seen and examined in telemetry unit He has been feeling much better No shortness of breath at rest but feels generally weak and lethargic Review of Systems Review of Systems: All systems reviewed and are unremarkable except as noted below Musculoskeletal: No acute arthritis in any joint Physical Exam Physical Exam: Sitting in a chair without any acute distress Constitutional: well developed, well nourished, + ill appearing and + obese Eyes: PERRL, conjunctivae normal, anicteric sclerae ENMT: external ear and nose normal, oropharynx normal Neck: trachea midline, no thyromegaly Respiratory: no respiratory distress Auscultation: + diminished lung sounds and + crackles (Bibasilar crackles) Cardiovascular: Rate/Rhythm: regular rate and regular rhythm; not tachycardic Heart Sounds: normal S1, normal S2 and + murmur (2/6 ejection systolic murmur over the precordium) Extremities: + edema (1-2+ edema bilaterally) Gastrointestinal (Abdomen): Inspection/Auscultation: + abdomen distended and n ormal bowel sounds Percussion/Palpation: abdomen soft; abdomen nontender Musculoskeletal: No acute arthritis in any joint Neurologic: Alert, awake and oriented x3. Generally weak Lymphatic: no cervical or axillary lymphadenopathy Results & Data Results & Data ([facility]) Vital Signs (Past 12 Hours) Vital Signs Temp Pulse Pulse Resp BP Pulse Ox 12/04/20 16:06 36.5 C 80 18 122/78 96 12/04/20 15:20 76 12/04/20 10:59 36.6 C 90 18 112/58 L 98 12/04/20 08:18 36.6 C 85 19 125/77 98 12/04/20 08:00 82 Laboratory Results Short CBC 12/04/20 Range/Units 05:49 WBC 9.36 (4.8-10.8) K/uL Hgb 11.5 L (14.0-18.0) g/dL Hct 36.3 L (42-52) % Plt Count 240 (130-400) K/uL BMP 12/04/20 05:49 Sodium 141 Potassium 4.6 Chloride 107 Carbon Dioxide 34 H BUN 54 H Creatinine 1.40 Glucose 131 H Calcium 8.3 L Medications Administered Current Inpatient Medications Acetaminophen (Acetaminophen 325 Mg Tab) 650 mg PO Q4H PRN PRN Reason: Pain or Fever Stop: 12/31/20 19:26 Al Hydrox/Mg Hydrox/Simethicone (Aluminum/Magnesium Susp 30 Ml Udc) 15 ml PO Q4H PRN PRN Reason: Dyspepsia Stop: 12/31/20 19:26 Aspirin (Aspirin 81 Mg Chew) 81 mg PO DAILY SANTIAGO Stop: 01/01/21 08:59 Last Admin: 12/04/20 08:25 Dose: 81 mg Documented by: Atorvastatin Calcium (Atorvastatin 40 Mg Tab) 80 mg PO DAILY SANTIAGO Stop: 01/01/21 08:59 Last Admin: 12/04/20 08:24 Dose: 80 mg Documented by: Cetirizine HCl (Cetirizine Hcl 10 Mg Tablet) 10 mg PO DAILY SANTIAGO Stop: 01/01/21 08:59 Last Admin: 12/04/20 08:24 Dose: 10 mg Documented by: Dextrose (Dextrose 50% 50 Ml Syringe) 25 - 50 ml IV UD PRN; Protocol PRN Reason: Hypoglycemia Protocol Stop: 12/31/20 19:26 Digoxin (Digoxin 0.125 Mg Tab) 0.125 mg PO PM SANTIAGO Stop: 12/31/20 20:59 Last Admin: 12/03/20 21:12 Dose: 0.125 mg Documented by: Enoxaparin Sodium (Enoxaparin Inj 40 Mg/0.4 Ml Syr) 40 mg SQ Q12H SANTIAGO Stop: 12/31/20 21:59 Last Admin: 12/04/20 08:25 Dose: 40 mg Documented by: Glucagon (Glucagon For Inj 1 Mg Vial) 1 mg SQ UD PRN; Protocol PRN Reason: Hypoglycemia Protocol Stop: 12/31/20 19:26 Glucose (Glucose 10 Tabs/Tube) 4 - 8 tabs PO UD PRN; Protocol PRN Reason: Hypoglycemia Protocol Stop: 12/31/20 19:26 Glucose (Glucose 40% Gel 15 Gm Tube) 15 - 30 gm PO UD PRN; Protocol PRN Reason: Hypoglycemia Protocol Stop: 12/31/20 19:26 Furosemide 40 mg/ Syringe 4 mls @ 4 mls/min IV TID SANTIAGO Stop: 01/03/21 13:59 Last Admin: 12/04/20 14:13 Dose: 4 mls/min Documented by: Insulin Aspart (Insulin Aspart 100 Units/Ml 3 Ml Pen) 0 units SC ACHS SANTIAGO Stop: 12/31/20 20:59 Last Admin: 12/04/20 12:07 Dose: Not Given Documented by: Magnesium Hydroxide (Magnesium Hydroxide Susp 30 Ml Udc) 30 ml PO Q12H PRN PRN Reason: Constipation Stop: 12/31/20 19:26 Metoprolol Succinate (Metoprolol Succ 50mg Ext Rel Tab) 50 mg PO BID SANTIAGO Stop: 12/31/20 20:59 Last Admin: 12/04/20 08:24 Dose: 50 mg Documented by: Miscellaneous (Carbohydrates For Hypoglycemia ) 15 - 30 gm PO UD PRN PRN Reason: Hypoglycemia Protocol Stop: 12/31/20 19:26 Last Admin: 12/01/20 20:23 Dose: 15 gm Documented by: Miscellaneous (Order Awaiting Action [Azelastine Nasal [place]]) 1 ea N/A QS SANTIAGO Stop: 01/01/21 00:00 Last Admin: 12/04/20 15:59 Dose: 1 ea Documented by: Ondansetron HCl (Ondansetron Inj 2 Mg/Ml 2 Ml Vial) 4 mg IV Q6H PRN PRN Reason: Nausea Stop: 12/31/20 19:26 Pantoprazole Sodium (Pantoprazole 40 Mg Tab) 40 mg PO BID [facility]; Protocol Stop: 12/31/20 20:59 Last Admin: 12/04/20 08:24 Dose: 40 mg Documented by: Polyethylene Glycol (Polyethylene (Miralax) 17 Gm Pack) 17 gm PO DAILY PRN PRN Reason: Constipation Stop: 12/31/20 19:26 Temazepam (Temazepam 7.5 Mg Capsule) 7.5 mg PO HS PRN PRN Reason: Sleep Stop: 12/31/20 19:26 Last Admin: 12/01/20 20:54 Dose: 7.5 mg Documented by: Trazodone HCl (Trazodone Hcl 100 Mg Tab) 100 mg PO HS PRN PRN Reason: Sleep Stop: 12/31/20 19:26 Last Admin: 12/01/20 20:56 Dose: 100 mg Documented by: Recheck the blood pressure recheck the blood pressure recheck the blood pressure
[2020-12-04] MEDS: DIGOXIN 0.125 MG TAB PO SCH (20:24)
[2020-12-05 06:15] LABS: BUN Creatinine Ratio 41.1 (10-20); Calcium 8.4 mg/dl (8.5-10.1); Creatinine Clr Calc Pharmacy 45.4 ml/min; Est GFR (African American) 59.6 ml/min; Est GFR (Non-African American) 51.4 ml/min; Magnesium 2.1 mg/dl (1.8-2.4); Potassium 4.5 mmol/L (3.5-5.1)
[2020-12-05] MEDS: ATORVASTATIN 40 MG TAB PO SCH (07:28)
[2020-12-05] MEDS: FUROSEMIDE 40 MG in SYRINGE 0 ML IV SCH ×3 (07:28→19:56)
[2020-12-05] MEDS: METOPROLOL SUCC 50MG EXT REL TAB PO SCH ×2 (07:29→19:59)
[2020-12-05] MEDS: CETIRIZINE HCL 10 MG TABLET PO SCH (07:29)
[2020-12-05] MEDS: ASPIRIN 81 MG CHEW PO SCH (07:29)
[2020-12-05] MEDS: PANTOprazole 40 MG TAB PO SCH ×2 (07:30→20:00)
[2020-12-05] MEDS: ENOXAPARIN INJ 40 MG/0.4 ML SYR SQ SCH ×2 (07:30→20:00)
[2020-12-05] MEDS: INSULIN ASPART 100 UNITS/ML 3 ML PEN SC SCH ×4 (07:57→20:52)
--- NOTE | 2020-12-05 12:47 | Cardiology Progress Note ---
Date of Service December 05, 2020 Assessment & Plan (1) Acute on chronic diastolic CHF (congestive heart failure): (2) Aortic stenosis: (3) Gastric ulcer: (4) Atrial fibrillation: (5) Pulmonary hypertension: Plan: 85-year-old male admitted with decompensated diastolic heart failure secondary to severe valvular disease, severe aortic stenosis. Patient manifesting diuresis with IV therapies We will continue furosemide to 40 mg 3 times daily IV through today. Likely switch to oral regimen in a.m. Maintain telemetry Continue oxygen and CPAP supplementation at night Admission and Anticipated Discharge Date Admission Date: December 01, 2020 Subjective Patient was seen and examined, chart, medications, lab and telemetry reviewed. Weight is down 4 kg from admission. Lower extremity edema has improved. Telemetry reveals persistent atrial fibrillation with once again single short run of nonsustained ventricular tachycardia. No overt bleeding difficulties. No dizziness or lightheadedness. Patient up in room without difficulty. Review of Systems Review of Systems: All systems reviewed & are unremarkable except as noted in Subjective Physical Exam Constitutional: WD/WN, vitals as above Eyes: PERRL, conjunctivae normal, anicteric sclerae ENMT: external ear and nose normal, oropharynx normal Neck: trachea midline, no thyromegaly Respiratory: normal respiratory effort, lungs clear to auscultation Auscultation: + diminished lung sounds Cardiovascular: Rate/Rhythm: + irregularly irregular Heart Sounds: + murmur (Harsh grade 3/6 systolic murmur no diastolic); no gallop Palpation: normal PMI Vessels: normal carotid upstroke and radial pulses present; no JVD and no carotid bruit Extremities: + edema (1+ to thighs) Gastrointestinal (Abdomen): normal bowel sounds, soft, nontender, no hepatosplenomegaly Inspection/Auscultation: + abdomen distended (Mild) Musculoskeletal: no cyanosis or clubbing, extremities motor strength 5/5 Skin: no rashes, warm and dry Neurologic: PERRL, EOMI, accommodation nl, no face palsy, no dysarthria Psychiatric: A+Ox3, euthymic affect Results & Data ([facility]) Vital Signs (Past 12 Hours) Vital Signs Temp Pulse Pulse Resp BP BP Pulse Ox 12/05/20 11:42 36.5 C 81 16 113/62 98 12/05/20 08:00 36.9 C 82 88 16 142/73 H 96 12/05/20 03:11 36.6 C 81 20 132/71 98 Laboratory Results Laboratory Results - last 24 hr 12/04/20 12/04/20 12/05/20 16:15 20:17 05:21 Sodium 141 Potassium 4.5 Chloride 107 Carbon Dioxide 34 H Anion Gap 0 L BUN 53 H Creatinine 1.28 Est Cr Clr Drug Dosing 45.4 Est GFR ( Amer) 59.6 Est GFR (Non-Af Amer) 51.4 BUN/Creatinine Ratio 41.1 H Glucose 129 H POC Glucose 180 H 183 H Calcium 8.4 L Magnesium 2.1 12/05/20 12/05/20 07:28 11:17 Sodium Potassium Chloride Carbon Dioxide Anion Gap BUN Creatinine Est Cr Clr Drug Dosing Est GFR ( Amer) Est GFR (Non-Af Amer) BUN/Creatinine Ratio Glucose POC Glucose 132 H 227 H Calcium Magnesium
--- NOTE | 2020-12-05 16:42 | Hospitalist Progress Note ---
Date of Service December 05, 2020 Assessment & Plan (1) Acute on chronic diastolic CHF (congestive heart failure): Plan: Presented with increasing lower extremity edema for 2 weeks with increasing shortness of breath Has acute on chronic diastolic heart failure. Echo showed: Moderate concentric LVH with paradoxical septal motion consistent with right ventricular volume overload. EF 55 to 60%. Severe calcific aortic valve stenosis. Trace MR and trace TR and right ventricle is mildly dilated Appreciate cardiology input and recommendation No evidence of ACS We will continue intravenous Lasix 40 mg 3 times daily Clinically much better Improved a lot and the Lasix doses have been changed to oral Likely discharge tomorrow PT and OT evaluation (2) Acute on chronic HFrEF (heart failure with reduced ejection fraction): Plan: Acute on chronic HFrEF has been ruled out by echo (3) Aortic stenosis: Plan: Severe valvulopathy with indications for replacement. Per cardiology note and discussion with patient, he is not interested at this time. Aortic stenosis is contributing the heart failure Denies any chest pain and/or syncope (4) Pulmonary hypertension: Plan: noted on records. Right ventricular systolic pressure is elevated at 40 to 50 mmHg (5) Atrial fibrillation: Plan: Persistent atrial fibrillation on telemetry. Rate controlled with metoprolol and digoxin, not on anticoagulation due to prior history of GI bleed Heart rate is on the upper side at 93/min (6) Diabetes: Plan: Continue with basal bolus insulin. Repeat A1c on 12/02 was 6.2. Hypoglycemia was noted and insulin control was loosened to correction factor only. He is not requiring insulin at this time. Continue to monitor. (7) GALEN (obstructive sleep apnea): Plan: Continue CPAP at bedtime. (8) HTN (hypertension): Plan: Blood pressure on the low side, home lisinopril was held. He continues on furosemide twice daily for diuresis efforts. Continue metoprolol succinate 50 mg p.o. twice daily per home regimen. (9) DVT prophylaxis: Plan: DVT prophylaxis: Lovenox subcu every 12 hours Dispo: PCU Full Code Admission and Anticipated Discharge Date Admission Date: December 01, 2020 Subjective 12/04/2020 The patient was seen and examined in telemetry unit He has been feeling much better No shortness of breath at rest but feels generally weak and lethargic 12/05/2020 The patient was seen and examined in telemetry unit He has been feeling much better Denies any chest pain, shortness of breath in bed His edema of the legs have been improving Review of Systems Review of Systems: All systems reviewed and are unremarkable except as noted below Respiratory: No shortness of breath at rest Musculoskeletal: No acute arthritis in any joint Physical Exam Physical Exam: Lying in bed comfortably Constitutional: well developed, well nourished, + ill appearing and + obese Eyes: PERRL, conjunctivae normal, anicteric sclerae ENMT: external ear and nose normal, oropharynx normal Neck: trachea midline, no thyromegaly Respiratory: no respiratory distress Auscultation: + diminished lung sounds and + crackles (Bibasilar crackles) Cardiovascular: Rate/Rhythm: regular rate and regular rhythm; not tachycardic Heart Sounds: normal S1, normal S2 and + murmur (2/6 ejection systolic murmur over the precordium) Extremities: + edema (1+ edema bilaterally) Gastrointestinal (Abdomen): Inspection/Auscultation: + abdomen distended and normal bowel sounds Percussion/Palpation: abdomen soft; abdomen nontender Neurologic: Alert, awake and oriented x3. Generally weak Lymphatic: no cervical or axillary lymphadenopathy Results & Data Results & Data ([facility]) Vital Signs (Past 12 Hours) Vital Signs Temp Pulse Pulse Resp BP Pulse Ox 12/05/20 15:00 36.6 C 93 H 18 124/56 L 93 12/05/20 11:42 36.5 C 81 16 113/62 98 12/05/20 08:00 36.9 C 82 88 16 142/73 H 96 Laboratory Results [facility] 12/05/20 05:21 Sodium 141 Potassium 4.5 Chloride 107 Carbon Dioxide 34 H BUN 53 H Creatinine 1.28 Glucose 129 H Calcium 8.4 L Medications Administered Current Inpatient Medications Acetaminophen (Acetaminophen 325 Mg Tab) 650 mg PO Q4H PRN PRN Reason: Pain or Fever Stop: 12/31/20 19:26 Al Hydrox/Mg Hydrox/Simethicone (Aluminum/Magnesium Susp 30 Ml Udc) 15 ml PO Q4H PRN PRN Reason: Dyspepsia Stop: 12/31/20 19:26 Aspirin (Aspirin 81 Mg Chew) 81 mg PO DAILY [facility] Stop: 01/01/21 08:59 Last Admin: 12/05/20 07:29 Dose: 81 mg Documented by: Atorvastatin Calcium (Atorvastatin 40 Mg Tab) 80 mg PO DAILY [facility] Stop: 01/01/21 08:59 Last Admin: 12/05/20 07:28 Dose: 80 mg Documented by: Cetirizine HCl (Cetirizine Hcl 10 Mg Tablet) 10 mg PO DAILY [facility] Stop: 01/01/21 08:59 Last Admin: 12/05/20 07:29 Dose: 10 mg Documented by: Dextrose (Dextrose 50% 50 Ml Syringe) 25 - 50 ml IV UD PRN; Protocol PRN Reason: Hypoglycemia Protocol Stop: 12/31/20 19:26 Digoxin (Digoxin 0.125 Mg Tab) 0.125 mg PO PM [facility] Stop: 12/31/20 20:59 Last Admin: 12/04/20 20:24 Dose: 0.125 mg Documented by: Enoxaparin Sodium (Enoxaparin Inj 40 Mg/0.4 Ml Syr) 40 mg SQ Q12H [facility] Stop: 12/31/20 21:59 Last Admin: 12/05/20 07:30 Dose: 40 mg Documented by: Glucagon (Glucagon For Inj 1 Mg Vial) 1 mg SQ UD PRN; Protocol PRN Reason: Hypoglycemia Protocol Stop: 12/31/20 19:26 Glucose (Glucose 10 Tabs/Tube) 4 - 8 tabs PO UD PRN; Protocol PRN Reason: Hypoglycemia Protocol Stop: 12/31/20 19:26 Glucose (Glucose 40% Gel 15 Gm Tube) 15 - 30 gm PO UD PRN; Protocol PRN Reason: Hypoglycemia Protocol Stop: 12/31/20 19:26 Furosemide 40 mg/ Syringe 4 mls @ 4 mls/min IV TID [facility] Stop: 01/03/21 13:59 Last Admin: 12/05/20 14:38 Dose: 4 mls/min Documented by: Insulin Aspart (Insulin Aspart 100 Units/Ml 3 Ml Pen) 0 units SC ACHS [facility] Stop: 12/31/20 20:59 Last Admin: 12/05/20 11:48 Dose: 3 units Documented by: Magnesium Hydroxide (Magnesium Hydroxide Susp 30 Ml Udc) 30 ml PO Q12H PRN PRN Reason: Constipation Stop: 12/31/20 19:26 Metoprolol Succinate (Metoprolol Succ 50mg Ext Rel Tab) 50 mg PO BID [facility] Stop: 12/31/20 20:59 Last Admin: 12/05/20 07:29 Dose: 50 mg Documented by: Miscellaneous (Carbohydrates For Hypoglycemia ) 15 - 30 gm PO UD PRN PRN Reason: Hypoglycemia Protocol Stop: 12/31/20 19:26 Last Admin: 12/01/20 20:23 Dose: 15 gm Documented by: Tosinaneous (Order Awaiting Action [Azelastine Nasal [place]]) 1 ea N/A QS [facility] Stop: 01/01/21 00:00 Last Admin: 12/05/20 16:20 Dose: Not Given Documented by: Ondansetron HCl (Ondansetron Inj 2 Mg/Ml 2 Ml Vial) 4 mg IV Q6H PRN PRN Reason: Nausea Stop: 12/31/20 19:26 Pantoprazole Sodium (Pantoprazole 40 Mg Tab) 40 mg PO BID [facility]; Protocol Stop: 12/31/20 20:59 Last Admin: 12/05/20 07:30 Dose: 40 mg Documented by: Polyethylene Glycol (Polyethylene (Miralax) 17 Gm Pack) 17 gm PO DAILY PRN PRN Reason: Constipation Stop: 12/31/20 19:26 Temazepam (Temazepam 7.5 Mg Capsule) 7.5 mg PO HS PRN PRN Reason: Sleep Stop: 12/31/20 19:26 Last Admin: 12/01/20 20:54 Dose: 7.5 mg Documented by: Trazodone HCl (Trazodone Hcl 100 Mg Tab) 100 mg PO HS PRN PRN Reason: Sleep Stop: 12/31/20 19:26 Last Admin: 12/01/20 20:56 Dose: 100 mg Documented by:
[2020-12-05] MEDS: DIGOXIN 0.125 MG TAB PO SCH (19:59)
[2020-12-06] MEDS: INSULIN ASPART 100 UNITS/ML 3 ML PEN SC SCH ×4 (08:00→20:19)
[2020-12-06] MEDS: ATORVASTATIN 40 MG TAB PO SCH (08:38)
[2020-12-06] MEDS: PANTOprazole 40 MG TAB PO SCH ×2 (08:38→20:22)
[2020-12-06] MEDS: METOPROLOL SUCC 50MG EXT REL TAB PO SCH ×2 (08:38→20:22)
[2020-12-06] MEDS: ASPIRIN 81 MG CHEW PO SCH (08:39)
[2020-12-06] MEDS: ENOXAPARIN INJ 40 MG/0.4 ML SYR SQ SCH ×2 (08:39→20:20)
[2020-12-06] MEDS: CETIRIZINE HCL 10 MG TABLET PO SCH (08:39)
[2020-12-06 10:03] LABS: BUN Creatinine Ratio 35.8 (10-20); Calcium 8.6 mg/dl (8.5-10.1); Creatinine Clr Calc Pharmacy 52.6 ml/min; Est GFR (African American) 72.4 ml/min; Est GFR (Non-African American) 62.4 ml/min; Potassium 4.4 mmol/L (3.5-5.1)
--- NOTE | 2020-12-06 11:15 | Cardiology Progress Note ---
Date of Service December 06, 2020 Assessment & Plan (1) Acute on chronic diastolic CHF (congestive heart failure): (2) Aortic stenosis: (3) Gastric ulcer: (4) Atrial fibrillation: (5) Pulmonary hypertension: Plan: 85-year-old male admitted with decompensated diastolic heart failure secondary to severe valvular disease, severe aortic stenosis. Plan transition to oral diuretics today with furosemide 80 mg twice per day Admission and Anticipated Discharge Date Admission Date: December 01, 2020 Subjective Patient was seen and examined, chart, medications, telemetry reviewed. No complaints overnight. No arrhythmias on telemetry. Continue to diurese with weight trending downward. Lower extremity edema improving. No chest pains or shortness of breath Physical Exam Constitutional: WD/WN, vitals as above Eyes: PERRL, conjunctivae normal, anicteric sclerae ENMT: external ear and nose normal, oropharynx normal Neck: trachea midline, no thyromegaly Respiratory: normal respiratory effort, lungs clear to auscultation Auscultation: + diminished lung sounds Cardiovascular: Rate/Rhythm: + irregularly irregular Heart Sounds: + murmur (Harsh grade 3/6 systolic murmur no diastolic); no gallop Palpation: normal PMI Vessels: normal carotid upstroke and radial pulses present; no JVD and no carotid bruit Extremities: + edema (1+ to thighs) Gastrointestinal (Abdomen): normal bowel sounds, soft, nontender, no hepatosplenomegaly Inspection/Auscultation: + abdomen distended (Mild) Musculoskeletal: no cyanosis or clubbing, extremities motor strength 5/5 Skin: no rashes, warm and dry Neurologic: PERRL, EOMI, accommodation nl, no face palsy, no dysarthria Psychiatric: A+Ox3, euthymic affect Results & Data ([facility]) Vital Signs (Past 12 Hours) Vital Signs Temp Pulse Pulse Resp BP BP Pulse Ox 12/06/20 07:30 36.6 C 94 H 19 123/76 98 12/06/20 07:00 75 12/06/20 02:49 36.6 C 90 24 135/74 100 12/05/20 23:34 36.4 C L 88 24 122/73 93 Laboratory Results Laboratory Results - last 24 hr 12/05/20 12/05/20 12/05/20 11:17 15:58 20:49 Sodium Potassium Chloride Carbon Dioxide Anion Gap BUN Creatinine Est Cr Clr Drug Dosing Est GFR ( Amer) Est GFR (Non-Af Amer) BUN/Creatinine Ratio Glucose POC Glucose 227 H 166 H 169 H Calcium 12/06/20 12/06/20 12/06/20 07:32 09:27 11:16 Sodium 142 Potassium 4.4 Chloride 103 Carbon Dioxide 39 H Anion Gap 0 L BUN 39 H Creatinine 1.09 Est Cr Clr Drug Dosing 52.6 Est GFR ( Amer) 72.4 Est GFR (Non-Af Amer) 62.4 BUN/Creatinine Ratio 35.8 H Glucose 222 H POC Glucose 129 H 273 H Calcium 8.6
[2020-12-06] MEDS: FUROSEMIDE 80 MG TAB PO SCH ×2 (13:32→16:46)
--- NOTE | 2020-12-06 13:32 | Hospitalist Progress Note ---
Date of Service December 06, 2020 Assessment & Plan (1) Acute on chronic diastolic CHF (congestive heart failure): Plan: Presented with increasing lower extremity edema for 2 weeks with increasing shortness of breath Has acute on chronic diastolic heart failure. Echo showed: Moderate concentric LVH with paradoxical septal motion consistent with right ventricular volume overload. EF 55 to 60%. Severe calcific aortic valve stenosis. Trace MR and trace TR and right ventricle is mildly dilated Appreciate cardiology input and recommendation No evidence of ACS We will continue intravenous Lasix 40 mg 3 times daily Clinically much better Improved a lot and the Lasix doses have been changed to oral Likely discharge tomorrow OT recommended rehab Awaiting physical therapy for recommendation before discharging the patient (2) Acute on chronic HFrEF (heart failure with reduced ejection fraction): Plan: Acute on chronic HFrEF has been ruled out by echo (3) Aortic stenosis: Plan: Severe valvulopathy with indications for replacement. Per cardiology note and discussion with patient, he is not interested at this time. Aortic stenosis is contributing the heart failure Denies any chest pain and/or syncope (4) Pulmonary hypertension: Plan: noted on records. Right ventricular systolic pressure is elevated at 40 to 50 mmHg (5) Atrial fibrillation: Plan: Persistent atrial fibrillation on telemetry. Rate controlled with metoprolol and digoxin, not on anticoagulation due to prior history of GI bleed Heart rate remains stable (6) Diabetes: Plan: Continue with basal bolus insulin. Repeat A1c on 12/02 was 6.2. Hypoglycemia was noted and insulin control was loosened to correction factor only. He is not requiring insulin at this time. Continue to monitor. (7) GALEN (obstructive sleep apnea): Plan: Continue CPAP at bedtime. (8) HTN (hypertension): Plan: Blood pressure on the low side, home lisinopril was held. He continues on furosemide twice daily for diuresis efforts. Continue metoprolol succinate 50 mg p.o. twice daily per home regimen. (9) DVT prophylaxis: Plan: DVT prophylaxis: Lovenox subcu every 12 hours Dispo: PCU Full Code Admission and Anticipated Discharge Date Admission Date: December 01, 2020 Subjective 12/04/2020 The patient was seen and examined in telemetry unit He has been feeling much better No shortness of breath at rest but feels generally weak and lethargic 12/05/2020 The patient was seen and examined in telemetry unit He has been feeling much better Denies any chest pain, shortness of breath in bed His edema of the legs have been improving 12/06/2020 The patient was seen and examined in telemetry unit He has been feeling much better at rest Remains generally weak and gets shortness of breath with minimal exertion Denies any chest pain and or palpitation Review of Systems Review of Systems: All systems reviewed and are unremarkable except as noted b elow Respiratory: No shortness of breath at rest Musculoskeletal: No acute arthritis in any joint Physical Exam Physical Exam: Lying in bed comfortably Constitutional: well developed, well nourished, + ill appearing and + obese Eyes: PERRL, conjunctivae normal, anicteric sclerae ENMT: external ear and nose normal, oropharynx normal Neck: trachea midline, no thyromegaly Respiratory: no respiratory distress Auscultation: + diminished lung sounds and + crackles (Bibasilar crackles) Cardiovascular: Rate/Rhythm: regular rate and regular rhythm; not tachycardic Heart Sounds: normal S1, normal S2 and + murmur (2/6 ejection systolic murmur over the precordium) Extremities: + edema (1+ edema bilaterally) Gastrointestinal (Abdomen): Inspection/Auscultation: + abdomen distended and normal bowel sounds Percussion/Palpation: abdomen soft; abdomen nontender Musculoskeletal: No acute arthritis in any joint Neurologic: Alert, awake and oriented x3. Generally very weak and lethargic Lymphatic: no cervical or axillary lymphadenopathy Results & Data Results & Data ([facility]) Vital Signs (Past 12 Hours) Vital Signs Temp Pulse Pulse Resp BP Pulse Ox 12/06/20 11:42 36.6 C 73 19 113/72 98 12/06/20 07:30 36.6 C 94 H 19 123/76 98 12/06/20 07:00 75 12/06/20 02:49 36.6 C 90 24 135/74 100 Laboratory Results [facility] 12/06/20 09:27 Sodium 142 Potassium 4.4 Chloride 103 Carbon Dioxide 39 H BUN 39 H Creatinine 1.09 Glucose 222 H Calcium 8.6 Medications Administered Current Inpatient Medications Acetaminophen (Acetaminophen 325 Mg Tab) 650 mg PO Q4H PRN PRN Reason: Pain or Fever Stop: 12/31/20 19:26 Al Hydrox/Mg Hydrox/Simethicone (Aluminum/Magnesium Susp 30 Ml Udc) 15 ml PO Q4H PRN PRN Reason: Dyspepsia Stop: 12/31/20 19:26 Aspirin (Aspirin 81 Mg Chew) 81 mg PO DAILY [facility] Stop: 01/01/21 08:59 Last Admin: 12/06/20 08:39 Dose: 81 mg Documented by: Atorvastatin Calcium (Atorvastatin 40 Mg Tab) 80 mg PO DAILY [facility] Stop: 01/01/21 08:59 Last Admin: 12/06/20 08:38 Dose: 80 mg Documented by: Cetirizine HCl (Cetirizine Hcl 10 Mg Tablet) 10 mg PO DAILY [facility] Stop: 01/01/21 08:59 Last Admin: 12/06/20 08:39 Dose: 10 mg Documented by: Dextrose (Dextrose 50% 50 Ml Syringe) 25 - 50 ml IV UD PRN; Protocol PRN Reason: Hypoglycemia Protocol Stop: 12/31/20 19:26 Digoxin (Digoxin 0.125 Mg Tab) 0.125 mg PO PM [facility] Stop: 12/31/20 20:59 Last Admin: 12/05/20 19:59 Dose: 0.125 mg Documented by: Enoxaparin Sodium (Enoxaparin Inj 40 Mg/0.4 Ml Syr) 40 mg SQ Q12H [facility] Stop: 12/31/20 21:59 Last Admin: 12/06/20 08:39 Dose: 40 mg Documented by: Furosemide (Furosemide 80 Mg Tab) 80 mg PO BID17 [facility] Stop: 01/05/21 11:59 Glucagon (Glucagon For Inj 1 Mg Vial) 1 mg SQ UD PRN; Protocol PRN Reason: Hypoglycemia Protocol Stop: 12/31/20 19:26 Glucose (Glucose 10 Tabs/Tube) 4 - 8 tabs PO UD PRN; Protocol PRN Reason: Hypoglycemia Protocol Stop: 12/31/20 19:26 Glucose (Glucose 40% Gel 15 Gm Tube) 15 - 30 gm PO UD PRN; Protocol PRN Reason: Hypoglycemia Protocol Stop: 12/31/20 19:26 Insulin Aspart (Insulin Aspart 100 Units/Ml 3 Ml Pen) 0 units SC ACHS [facility] Stop: 12/31/20 20:59 Last Admin: 12/06/20 12:45 Dose: 5 units Documented by: Magnesium Hydroxide (Magnesium Hydroxide Susp 30 Ml Udc) 30 ml PO Q12H PRN PRN Reason: Constipation Stop: 12/31/20 19:26 Metoprolol Succinate (Metoprolol Succ 50mg Ext Rel Tab) 50 mg PO BID [facility] Stop: 12/31/20 20:59 Last Admin: 12/06/20 08:38 Dose: 50 mg Documented by: Miscellaneous (Carbohydrates For Hypoglycemia ) 15 - 30 gm PO UD PRN PRN Reason: Hypoglycemia Protocol Stop: 12/31/20 19:26 Last Admin: 12/01/20 20:23 Dose: 15 gm Documented by: Tosinaneous (Order Awaiting Action [Azelastine Nasal [place]]) 1 ea N/A QS [facility] Stop: 01/01/21 00:00 Last Admin: 12/06/20 08:37 Dose: Not Given Documented by: Ondansetron HCl (Ondansetron Inj 2 Mg/Ml 2 Ml Vial) 4 mg IV Q6H PRN PRN Reason: Nausea Stop: 12/31/20 19:26 Pantoprazole Sodium (Pantoprazole 40 Mg Tab) 40 mg PO BID [facility]; Protocol Stop: 12/31/20 20:59 Last Admin: 12/06/20 08:38 Dose: 40 mg Documented by: Polyethylene Glycol (Polyethylene (Miralax) 17 Gm Pack) 17 gm PO DAILY PRN PRN Reason: Constipation Stop: 12/31/20 19:26 Temazepam (Temazepam 7.5 Mg Capsule) 7.5 mg PO HS PRN PRN Reason: Sleep Stop: 12/31/20 19:26 Last Admin: 12/01/20 20:54 Dose: 7.5 mg Documented by: Trazodone HCl (Trazodone Hcl 100 Mg Tab) 100 mg PO HS PRN PRN Reason: Sleep Stop: 12/31/20 19:26 Last Admin: 12/01/20 20:56 Dose: 100 mg Documented by:
[2020-12-06] MEDS: DIGOXIN 0.125 MG TAB PO SCH (20:23)
[2020-12-07 07:23] LABS: BUN Creatinine Ratio 27.8 (10-20); Calcium 8.7 mg/dl (8.5-10.1); Creatinine Clr Calc Pharmacy 53.4 ml/min; Est GFR (African American) 74.9 ml/min; Est GFR (Non-African American) 64.6 ml/min; Magnesium 1.7 mg/dl (1.8-2.4); Potassium 3.8 mmol/L (3.5-5.1)
[2020-12-07] MEDS: INSULIN ASPART 100 UNITS/ML 3 ML PEN SC SCH ×4 (07:44→20:22)
--- NOTE | 2020-12-07 07:45 | Cardiology Progress Note ---
Date of Service December 07, 2020 Assessment & Plan (1) Acute on chronic diastolic CHF (congestive heart failure): (2) Aortic stenosis: (3) Gastric ulcer: (4) Atrial fibrillation: (5) Pulmonary hypertension: Plan: 85-year-old male admitted with decompensated diastolic heart failure secondary to severe valvular disease, severe aortic stenosis. Patient has responded to diuresis weight down 9 kg since admission. Clinically improved Plan: Continue oral diuretics with furosemide 80 mg twice per day. Would not restart lisinopril given severe aortic stenosis. Add potassium chloride 10 mg p.o. daily Patient will need close clinical follow-up with [facility] cardiology, [facility] post hospital discharge in next weeks time. Severe aortic stenosis increases risk for rehospitalization and recurrent congestive heart failure. Patient has initially declined interventions. Would readdress at outpatient visit CHF management instructions Admission and Anticipated Discharge Date Admission Date: December 01, 2020 Subjective Patient was seen and examined, chart, medications, telemetry reviewed. No arrhythmias on telemetry with patient in persistent atrial fibrillation Volume status continues to improve lower extremity edema improved. IV diuretics now transitioned to oral yesterday Review of Systems Review of Systems: All systems reviewed & are unremarkable except as noted in Subjective Physical Exam Constitutional: WD/WN, vitals as above Eyes: PERRL, conjunctivae normal, anicteric sclerae ENMT: external ear and nose normal, oropharynx normal Neck: trachea midline, no thyromegaly Respiratory: normal respiratory effort, lungs clear to auscultation Auscultation: + diminished lung sounds Cardiovascular: Rate/Rhythm: + irregularly irregular Heart Sounds: + murmur (Harsh grade 3/6 systolic murmur no diastolic); no gallop Palpation: normal PMI Vessels: normal carotid upstroke and radial pulses present; no JVD and no carotid bruit Extremities: + edema (Minimal) Gastrointestinal (Abdomen): normal bowel sounds, soft, nontender, no hepatosplenomegaly Inspection/Auscultation: + abdomen distended (Mild) Musculoskeletal: no cyanosis or clubbing, extremities motor strength 5/5 Skin: no rashes, warm and dry Neurologic: PERRL, EOMI, accommodation nl, no face palsy, no dysarthria Psychiatric: A+Ox3, euthymic affect Results & Data ([facility]) Vital Signs (Past 12 Hours) Vital Signs Temp Pulse Pulse Resp BP Pulse Ox 12/07/20 02:52 36.4 C L 80 24 119/72 97 12/06/20 23:35 36.4 C L 86 20 103/63 98 12/06/20 22:05 90 33 H 98 12/06/20 20:23 82 12/06/20 20:03 36.9 C 82 24 124/80 98 Laboratory Results Laboratory Results - last 24 hr 12/06/20 12/06/20 12/06/20 09:27 11:16 16:20 Sodium 142 Potassium 4.4 Chloride 103 Carbon Dioxide 39 H Anion Gap 0 L BUN 39 H Creatinine 1.09 Est Cr Clr Drug Dosing 52.6 Est GFR ( Amer) 72.4 Est GFR (Non-Af Amer) 62.4 BUN/Creatinine Ratio 35.8 H Glucose 222 H POC Glucose 273 H 107 H Calcium 8.6 Magnesium 12/06/20 12/07/20 12/07/20 20:12 05:50 07:21 Sodium 140 Potassium 3.8 Chloride 99 Carbon Dioxide 43 H* Anion Gap -2.0 L BUN 29 H Creatinine 1.06 Est Cr Clr Drug Dosing 53.4 Est GFR ( Amer) 74.9 Est GFR (Non-Af Amer) 64.6 BUN/Creatinine Ratio 27.8 H Glucose 124 H POC Glucose 140 H 115 H Calcium 8.7 Magnesium 1.7 L
[2020-12-07] MEDS: ASPIRIN 81 MG CHEW PO SCH (08:00)
[2020-12-07] MEDS: CETIRIZINE HCL 10 MG TABLET PO SCH (08:00)
[2020-12-07] MEDS: ATORVASTATIN 40 MG TAB PO SCH (08:00)
[2020-12-07] MEDS: FUROSEMIDE 80 MG TAB PO SCH ×2 (08:00→16:59)
[2020-12-07] MEDS: METOPROLOL SUCC 50MG EXT REL TAB PO SCH ×2 (08:00→20:20)
[2020-12-07] MEDS: PANTOprazole 40 MG TAB PO SCH ×2 (08:00→20:20)
[2020-12-07] MEDS: ENOXAPARIN INJ 40 MG/0.4 ML SYR SQ SCH ×2 (10:17→20:20)
[2020-12-07] MEDS: POTASSIUM CHLORIDE 10 MEQ TABCR PO SCH (10:17)
--- NOTE | 2020-12-07 12:39 | Hospitalist Progress Note ---
Date of Service December 07, 2020 Assessment & Plan (1) Acute on chronic diastolic CHF (congestive heart failure): Plan: Presented with increasing lower extremity edema for 2 weeks with increasing shortness of breath Has acute on chronic diastolic heart failure. Echo showed: Moderate concentric LVH with paradoxical septal motion consistent with right ventricular volume overload. EF 55 to 60%. Severe calcific aortic valve stenosis. Trace MR and trace TR and right ventricle is mildly dilated Appreciate cardiology input and recommendation No evidence of ACS We will continue intravenous Lasix 40 mg 3 times daily Clinically much better Improved a lot and the Lasix doses have been changed to oral OT recommended rehab and physical therapy recommended home Remains stable and like to be discharged tomorrow Will need CHF clinic follow-up and cardiology appointment in [place] on discharge with PRP (2) Acute on chronic HFrEF (heart failure with reduced ejection fraction): Plan: Acute on chronic HFrEF has been ruled out by echo (3) Aortic stenosis: Plan: Severe valvulopathy with indications for replacement. Per cardiology note and discussion with patient, he is not interested at this time. Aortic stenosis is contributing the heart failure Denies any chest pain and/or syncope Lisinopril will not be continued (4) Pulmonary hypertension: Plan: noted on records. Right ventricular systolic pressure is elevated at 40 to 50 mmHg (5) Atrial fibrillation: Plan: Persistent atrial fibrillation on telemetry. Rate controlled with metoprolol and digoxin, not on anticoagulation due to prior history of GI bleed Heart rate remains stable (6) Diabetes: Plan: Continue with basal bolus insulin. Repeat A1c on 12/02 was 6.2. Hypoglycemia was noted and insulin control was loosened to correction factor only. He is not requiring insulin at this time. Continue to monitor. (7) GALEN (obstructive sleep apnea): Plan: Continue CPAP at bedtime. (8) HTN (hypertension): Plan: Blood pressure on the low side, home lisinopril was held. He continues on furosemide twice daily for diuresis efforts. Continue metoprolol succinate 50 mg p.o. twice daily per home regimen. (9) DVT prophylaxis: Plan: DVT prophylaxis: Lovenox subcu every 12 hours Dispo: PCU Full Code Admission and Anticipated Discharge Date Admission Date: December 01, 2020 Subjective 12/04/2020 The patient was seen and examined in telemetry unit He has been feeling much better No shortness of breath at rest but feels generally weak and lethargic 12/05/2020 The patient was seen and examined in telemetry unit He has been feeling much better Denies any chest pain, shortness of breath in bed His edema of the legs have been improving 12/06/2020 The patient was seen and examined in telemetry unit He has been feeling much better at rest Remains generally weak and gets shortness of breath with minimal exertion Denies any chest pain and or palpitation 12/07/2020 The patient was seen and examined in telemetry unit He remains stable and denies any significant symptoms He has had physical therapy and did reasonably well Review of Systems Review of Systems: All systems reviewed and are unremarkable except as noted below Respiratory: No shortness of breath at rest Musculoskeletal: No acute arthritis in any joint Physical Exam Physical Exam: Sitting on a chair without any apparent distress Constitutional: well developed, well nourished, + ill appearing and + obese Eyes: PERRL, conjunctivae normal, anicteric sclerae ENMT: external ear and nose normal, oropharynx normal Neck: trachea midline, no thyromegaly Respiratory: no respiratory distress Auscultation: + diminished lung sounds and + crackles (Bibasilar crackles) Cardiovascular: Rate/Rhythm: regular rate and regular rhythm; not tachycardic Heart Sounds: normal S1, normal S2 and + murmur (2/6 ejection systolic murmur over the precordium) Extremities: + edema (1+ edema bilaterally) Gastrointestinal (Abdomen): Inspection/Auscultation: + abdomen distended and normal bowel sounds Percussion/Palpation: abdomen soft; abdomen nontender Musculoskeletal: No acute arthritis in any joint Neurologic: Alert, awake and oriented x3. No focal sensory or motor deficit appreciated Lymphatic: no cervical or axillary lymphadenopathy Results & Data Results & Data ([facility]) Vital Signs (Past 12 Hours) Vital Signs Temp Pulse Resp BP Pulse Ox 12/07/20 11:51 36.9 C 72 20 142/81 H 99 12/07/20 08:05 36.5 C 102 H 18 144/75 H 12/07/20 02:52 36.4 C L 80 24 119/72 97 Laboratory Results [facility] 12/07/20 05:50 Sodium 140 Potassium 3.8 Chloride 99 Carbon Dioxide 43 H* BUN 29 H Creatinine 1.06 Glucose 124 H Calcium 8.7 Medications Administered Current Inpatient Medications Acetaminophen (Acetaminophen 325 Mg Tab) 650 mg PO Q4H PRN PRN Reason: Pain or Fever Stop: 12/31/20 19:26 Al Hydrox/Mg Hydrox/Simethicone (Aluminum/Magnesium Susp 30 Ml Udc) 15 ml PO Q4H PRN PRN Reason: Dyspepsia Stop: 12/31/20 19:26 Aspirin (Aspirin 81 Mg Chew) 81 mg PO DAILY [facility] Stop: 01/01/21 08:59 Last Admin: 12/07/20 08:00 Dose: 81 mg Documented by: Atorvastatin Calcium (Atorvastatin 40 Mg Tab) 80 mg PO DAILY [facility] Stop: 01/01/21 08:59 Last Admin: 12/07/20 08:00 Dose: 80 mg Documented by: Cetirizine HCl (Cetirizine Hcl 10 Mg Tablet) 10 mg PO DAILY [facility] Stop: 01/01/21 08:59 Last Admin: 12/07/20 08:00 Dose: 10 mg Documented by: Dextrose (Dextrose 50% 50 Ml Syringe) 25 - 50 ml IV UD PRN; Protocol PRN Reason: Hypoglycemia Protocol Stop: 12/31/20 19:26 Digoxin (Digoxin 0.125 Mg Tab) 0.125 mg PO PM [facility] Stop: 12/31/20 20:59 Last Admin: 12/06/20 20:23 Dose: 0.125 mg Documented by: Enoxaparin Sodium (Enoxaparin Inj 40 Mg/0.4 Ml Syr) 40 mg SQ Q12H [facility] Stop: 12/31/20 21:59 Last Admin: 12/07/20 10:17 Dose: 40 mg Documented by: Furosemide (Furosemide 80 Mg Tab) 80 mg PO [id number] [facility] Stop: 01/05/21 11:59 Last Admin: 12/07/20 08:00 Dose: 80 mg Documented by: Glucagon (Glucagon For Inj 1 Mg Vial) 1 mg SQ UD PRN; Protocol PRN Reason: Hypoglycemia Protocol Stop: 12/31/20 19:26 Glucose (Glucose 10 Tabs/Tube) 4 - 8 tabs PO UD PRN; Protocol PRN Reason: Hypoglycemia Protocol Stop: 12/31/20 19:26 Glucose (Glucose 40% Gel 15 Gm Tube) 15 - 30 gm PO UD PRN; Protocol PRN Reason: Hypoglycemia Protocol Stop: 12/31/20 19:26 Insulin Aspart (Insulin Aspart 100 Units/Ml 3 Ml Pen) 0 units SC ACHS [facility] Stop: 12/31/20 20:59 Last Admin: 12/07/20 11:47 Dose: 6 units Documented by: Magnesium Hydroxide (Magnesium Hydroxide Susp 30 Ml Udc) 30 ml PO Q12H PRN PRN Reason: Constipation Stop: 12/31/20 19:26 Metoprolol Succinate (Metoprolol Succ 50mg Ext Rel Tab) 50 mg PO BID [facility] Stop: 12/31/20 20:59 Last Admin: 12/07/20 08:00 Dose: 50 mg Documented by: Miscellaneous (Carbohydrates For Hypoglycemia ) 15 - 30 gm PO UD PRN PRN Reason: Hypoglycemia Protocol Stop: 12/31/20 19:26 Last Admin: 12/01/20 20:23 Dose: 15 gm Documented by: Tosinaneous (Order Awaiting Action [Azelastine Nasal [place]]) 1 ea N/A QS [facility] Stop: 01/01/21 00:00 Last Admin: 12/07/20 07:57 Dose: Not Given Documented by: Ondansetron HCl (Ondansetron Inj 2 Mg/Ml 2 Ml Vial) 4 mg IV Q6H PRN PRN Reason: Nausea Stop: 12/31/20 19:26 Pantoprazole Sodium (Pantoprazole 40 Mg Tab) 40 mg PO BID [facility]; Protocol Stop: 12/31/20 20:59 Last Admin: 12/07/20 08:00 Dose: 40 mg Documented by: Polyethylene Glycol (Polyethylene (Miralax) 17 Gm Pack) 17 gm PO DAILY PRN PRN Reason: Constipation Stop: 12/31/20 19:26 Potassium Chloride (Potassium Chloride 10 Meq Tabcr) 10 meq PO DAILY [facility] Stop: 01/06/21 08:59 Last Admin: 12/07/20 10:17 Dose: 10 meq Documented by: Temazepam (Temazepam 7.5 Mg Capsule) 7.5 mg PO HS PRN PRN Reason: Sleep Stop: 12/31/20 19:26 Last Admin: 12/01/20 20:54 Dose: 7.5 mg Documented by: Trazodone HCl (Trazodone Hcl 100 Mg Tab) 100 mg PO HS PRN PRN Reason: Sleep Stop: 12/31/20 19:26 Last Admin: 12/01/20 20:56 Dose: 100 mg Documented by:
[2020-12-07] MEDS: DIGOXIN 0.125 MG TAB PO SCH (20:19)
[2020-12-08 05:56] LABS: Basophils # (auto) 0.02 K/uL (0-0.2); Basophils % (auto) 0.2 %; Eosinophils % (auto) 1.8 %; Hematocrit (blood only) 36.2 % (42-52); Hemoglobin 11.5 g/dL (14.0-18.0); Immature Granulocytes # (auto) 0.05 K/uL (0.00-0.02); Immature Granulocytes % (auto) 0.4 %; Lymphocytes # (auto) 0.88 K/uL (1.2-3.4); Lymphocytes % (auto) 7.9 %; Mean Corpuscular Hemoglobin 31.1 pg (25-34); Mean Corpuscular Hgb Conc 31.8 g/dL (32-36); Mean Corpuscular Volume 97.8 fL (80-100); Monocytes # (auto) 0.89 K/uL (0.11-0.59); Monocytes % (auto) 7.9 %; Neutrophils # (auto) 9.16 K/uL (1.4-6.5); Neutrophils % (auto) 81.8 %; Platelet Count 245 K/uL (130-400); RDW Coefficient of Variation 15.1 % (11.5-14.5); RDW Standard Deviation 53.6 fL (36.4-46.3)
[2020-12-08 07:14] LABS: Calcium 8.7 mg/dl (8.5-10.1); Creatinine Clr Calc Pharmacy 58.3 ml/min; Est GFR (African American) 83.3 ml/min; Est GFR (Non-African American) 71.9 ml/min; Magnesium 1.8 mg/dl (1.8-2.4); Potassium 3.4 mmol/L (3.5-5.1)
[2020-12-08] MEDS: INSULIN ASPART 100 UNITS/ML 3 ML PEN SC SCH ×4 (08:15→20:28)
[2020-12-08] MEDS: PANTOprazole 40 MG TAB PO SCH ×2 (08:48→20:27)
[2020-12-08] MEDS: FUROSEMIDE 80 MG TAB PO SCH ×2 (08:48→16:44)
[2020-12-08] MEDS: METOPROLOL SUCC 50MG EXT REL TAB PO SCH ×2 (08:48→20:26)
[2020-12-08] MEDS: CETIRIZINE HCL 10 MG TABLET PO SCH (08:49)
[2020-12-08] MEDS: ATORVASTATIN 40 MG TAB PO SCH (08:49)
[2020-12-08] MEDS: ASPIRIN 81 MG CHEW PO SCH (08:53)
[2020-12-08] MEDS: POTASSIUM CHLORIDE 10 MEQ TABCR PO SCH (08:55)
[2020-12-08 08:56] LABS: Base Excess ABG 18.8 mEq/L (-9-1.8); HCO3 ABG 47 mmol/L (19-24); Oxygen Saturation ABG 92.6 % (90-95); PCO2 ABG 77 mmHg (35-46); PO2 ABG 63 mmHg (80-95); pH ABG 7.41 (7.35-7.45)
[2020-12-08 08:59] LABS: Allen Test Pos (Pos)
[2020-12-08] MEDS: ENOXAPARIN INJ 40 MG/0.4 ML SYR SQ SCH ×2 (10:38→20:26)
[2020-12-08] MEDS: POTASSIUM CHLORIDE CRTAB 20 MEQ TABCR PO SCH (10:38)
--- NOTE | 2020-12-08 10:47 | Cardiology Progress Note ---
Date of Service December 08, 2020 Assessment & Plan (1) Acute on chronic diastolic CHF (congestive heart failure): (2) Aortic stenosis: (3) Gastric ulcer: (4) Atrial fibrillation: (5) Pulmonary hypertension: Plan: 85-year-old male admitted with decompensated diastolic heart failure secondary to severe valvular disease, severe aortic stenosis. Symptoms improved with IV diuresis. Down 9 kgs since admission. PLAN -Lisinopril discontinued. 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 Has appt early in January. Consider future valve intervention (patient previously declined) Case discussed with Dr. Ca Admission and Anticipated Discharge Date Admission Date: December 01, 2020 Supervising Physician Co-Signing Physician Notes Assessment and plan as outlined above and previously. Patient has clinically improved since admission but remains at high risk for further deterioration given severe valvular disease. Previously discussed in detail with patient Patient will need to resume outpatient cardiology follow-up Subjective Patient resting comfortably out of bed in chair. Reports his SOB has improved from admission. No orthopnea noted. No chest pain. No edema. No dizziness or lightheadedness. Hoping to be discharged today Review of Systems Review of Systems: All systems reviewed & are unremarkable except as noted in HPI & below Physical Exam Constitutional: WD/WN, vitals as above Eyes: PERRL, conjunctivae normal, anicteric sclerae ENMT: external ear and nose normal, oropharynx normal Neck: trachea midline, no thyromegaly Respiratory: normal respiratory effort, lungs clear to auscultation Auscultation: + diminished lung sounds (but clear, no rales or wheezes) Cardiovascular: Rate/Rhythm: + irregularly irregular Heart Sounds: + murmur (Harsh grade 3/6 systolic murmur no diastolic); no gallop Palpation: normal PMI Vessels: normal carotid upstroke and radial pulses present; no JVD and no carotid bruit Extremities: + edema (No significant edema. compression stockings in place) Gastrointestinal (Abdomen): normal bowel sounds, soft, nontender, no hepatosplenomegaly Musculoskeletal: no cyanosis or clubbing, extremities motor strength 5/5 Skin: no rashes, warm and dry Neurologic: PERRL, EOMI, accommodation nl, no face palsy, no dysarthria Psychiatric: A+Ox3, euthymic affect Results & Data ([facility]) Vital Signs (Past 12 Hours) Vital Signs Temp Pulse Resp BP BP Pulse Ox 12/08/20 07:59 36.8 C 95 H 18 153/75 H 94 12/08/20 04:06 36.6 C 83 20 136/81 94 12/07/20 23:38 36.4 C L 71 24 103/60 97 Laboratory Results 12/08/20 12/08/20 12/08/20 Range/Units 08:40 07:30 05:33 WBC (4.8-10.8) K/uL RBC (4.7-6.1) M/uL Hgb (14.0-18.0) g/dL Hct (42-52) % MCV (80-100) fL MCH (25-34) pg MCHC (32-36) g/dL RDW Std Deviation (36.4-46.3) fL RDW Coeff of Woo (11.5-14.5) % Plt Count (130-400) K/uL MPV (7.4-10.4) fL Immature Gran % (Auto) % Neut % (Auto) % Lymph % (Auto) % [place]calfe % (Auto) % Eos % (Auto) % Baso % (Auto) % Neut # (Auto) (1.4-6.5) K/uL Lymph # (Auto) (1.2-3.4) K/uL [place] # (Auto) (0.11-0.59) K/uL Eos # (Auto) (0-0.5) K/uL Baso # (Auto) (0-0.2) K/uL Immature Gran # (Auto) (0.00-0.02) K/uL ABG pH 7.41 (7.35-7.45) ABG pCO2 77 H (35-46) mmHg ABG pO2 63 L (80-95) mmHg ABG HCO3 47 H (19-24) mmol/L ABG O2 Saturation 92.6 (90-95) % ABG Base Excess 18.8 H (-9-1.8) mEq/L Josafat Test Pos (Pos) Barometric Pressure 732.8 mm/Hg Oxygen Given FR 2 Sodium 140 (136-145) mmol/L Potassium 3.4 L (3.5-5.1) mmol/L Chloride 96 L (98-107) mmol/L Carbon Dioxide 49 H* (21-32) mmol/L Anion Gap -5.0 L (3-11) BUN 29 H (7-18) mg/dl Creatinine 0.97 (0.6-1.4) mg/dl Est Cr Clr Drug Dosing 58.3 ml/min Est GFR ( Amer) 83.3 ml/min Est GFR (Non-Af Amer) 71.9 ml/min POC Glucose 127 H (70-99) mg/dl Fasting Glucose 129 H (70-99) mg/dl Calcium 8.7 (8.5-10.1) mg/dl Magnesium 1.8 (1.8-2.4) mg/dl 12/08/20 12/07/20 12/07/20 Range/Units 05:33 19:48 16:18 WBC 11.20 H (4.8-10.8) K/uL RBC 3.70 L (4.7-6.1) M/uL Hgb 11.5 L (14.0-18.0) g/dL Hct 36.2 L (42-52) % MCV 97.8 (80-100) fL MCH 31.1 (25-34) pg MCHC 31.8 L (32-36) g/dL RDW Std Deviation 53.6 H (36.4-46.3) fL RDW Coeff of Woo 15.1 H (11.5-14.5) % Plt Count 245 (130-400) K/uL MPV 11.0 H (7.4-10.4) fL Immature Gran % (Auto) 0.4 % Neut % (Auto) 81.8 % Lymph % (Auto) 7.9 % Metcalfe % (Auto) 7.9 % Eos % (Auto) 1.8 % Baso % (Auto) 0.2 % Neut # (Auto) 9.16 H (1.4-6.5) K/uL Lymph # (Auto) 0.88 L (1.2-3.4) K/uL [place]fe # (Auto) 0.89 H (0.11-0.59) K/uL Eos # (Auto) 0.20 (0-0.5) K/uL Baso # (Auto) 0.02 (0-0.2) K/uL Immature Gran # (Auto) 0.05 H (0.00-0.02) K/uL ABG pH (7.35-7.45) ABG pCO2 (35-46) mmHg ABG pO2 (80-95) mmHg ABG HCO3 (19-24) mmol/L ABG O2 Saturation (90-95) % ABG Base Excess (-9-1.8) mEq/L Josafat Test (Pos) Barometric Pressure mm/Hg Oxygen Given Sodium (136-145) mmol/L Potassium (3.5-5.1) mmol/L Chloride (98-107) mmol/L Carbon Dioxide (21-32) mmol/L Anion Gap (3-11) BUN (7-18) mg/dl Creatinine (0.6-1.4) mg/dl Est Cr Clr Drug Dosing ml/min Est GFR ( Amer) ml/min Est GFR (Non-Af Amer) ml/min POC Glucose 223 H 88 (70-99) mg/dl Fasting Glucose (70-99) mg/dl Calcium (8.5-10.1) mg/dl Magnesium (1.8-2.4) mg/dl 12/07/20 Range/Units 11:30 WBC (4.8-10.8) K/uL RBC (4.7-6.1) M/uL Hgb (14.0-18.0) g/dL Hct (42-52) % MCV (80-100) fL MCH (25-34) pg MCHC (32-36) g/dL RDW Std Deviation (36.4-46.3) fL RDW Coeff of Woo (11.5-14.5) % Plt Count (130-400) K/uL MPV (7.4-10.4) fL Immature Gran % (Auto) % Neut % (Auto) % Lymph % (Auto) % [place] % (Auto) % Eos % (Auto) % Baso % (Auto) % Neut # (Auto) (1.4-6.5) K/uL Lymph # (Auto) (1.2-3.4) K/uL [place] # (Auto) (0.11-0.59) K/uL Eos # (Auto) (0-0.5) K/uL Baso # (Auto) (0-0.2) K/uL Immature Gran # (Auto) (0.00-0.02) K/uL ABG pH (7.35-7.45) ABG pCO2 (35-46) mmHg ABG pO2 (80-95) mmHg ABG HCO3 (19-24) mmol/L ABG O2 Saturation (90-95) % ABG Base Excess (-9-1.8) mEq/L Josafat Test (Pos) Barometric Pressure mm/Hg Oxygen Given Sodium (136-145) mmol/L Potassium (3.5-5.1) mmol/L Chloride (98-107) mmol/L Carbon Dioxide (21-32) mmol/L Anion Gap (3-11) BUN (7-18) mg/dl Creatinine (0.6-1.4) mg/dl Est Cr Clr Drug Dosing ml/min Est GFR ( Amer) ml/min Est GFR (Non-Af Amer) ml/min POC Glucose 282 H (70-99) mg/dl Fasting Glucose (70-99) mg/dl Calcium (8.5-10.1) mg/dl Magnesium (1.8-2.4) mg/dl Diagnostic Findings Telemetry reviewed - Persistent afib, controlled rates. Medications Administered Current Inpatient Medications Acetaminophen (Acetaminophen 325 Mg Tab) 650 mg PO Q4H PRN PRN Reason: Pain or Fever Stop: 12/31/20 19:26 Al Hydrox/Mg Hydrox/Simethicone (Aluminum/Magnesium Susp 30 Ml Udc) 15 ml PO Q4H PRN PRN Reason: Dyspepsia Stop: 12/31/20 19:26 Aspirin (Aspirin 81 Mg Chew) 81 mg PO DAILY [facility] Stop: 01/01/21 08:59 Last Admin: 12/08/20 08:53 Dose: 81 mg Documented by: Atorvastatin Calcium (Atorvastatin 40 Mg Tab) 80 mg PO DAILY [facility] Stop: 01/01/21 08:59 Last Admin: 12/08/20 08:49 Dose: 80 mg Documented by: Cetirizine HCl (Cetirizine Hcl 10 Mg Tablet) 10 mg PO DAILY [facility] Stop: 01/01/21 08:59 Last Admin: 12/08/20 08:49 Dose: 10 mg Documented by: Dextrose (Dextrose 50% 50 Ml Syringe) 25 - 50 ml IV UD PRN; Protocol PRN Reason: Hypoglycemia Protocol Stop: 12/31/20 19:26 Digoxin (Digoxin 0.125 Mg Tab) 0.125 mg PO PM [facility] Stop: 12/31/20 20:59 Last Admin: 12/07/20 20:19 Dose: 0.125 mg Documented by: Enoxaparin Sodium (Enoxaparin Inj 40 Mg/0.4 Ml Syr) 40 mg SQ Q12H [facility] Stop: 12/31/20 21:59 Last Admin: 12/08/20 10:38 Dose: 40 mg Documented by: Furosemide (Furosemide 80 Mg Tab) 80 mg PO [id number] [facility] Stop: 01/05/21 11:59 Last Admin: 12/08/20 08:48 Dose: 80 mg Documented by: Glucagon (Glucagon For Inj 1 Mg Vial) 1 mg SQ UD PRN; Protocol PRN Reason: Hypoglycemia Protocol Stop: 12/31/20 19:26 Glucose (Glucose 10 Tabs/Tube) 4 - 8 tabs PO UD PRN; Protocol PRN Reason: Hypoglycemia Protocol Stop: 12/31/20 19:26 Glucose (Glucose 40% Gel 15 Gm Tube) 15 - 30 gm PO UD PRN; Protocol PRN Reason: Hypoglycemia Protocol Stop: 12/31/20 19:26 Insulin Aspart (Insulin Aspart 100 Units/Ml 3 Ml Pen) 0 units SC ACHS [facility] Stop: 12/31/20 20:59 Last Admin: 12/08/20 08:15 Dose: Not Given Documented by: Magnesium Hydroxide (Magnesium Hydroxide Susp 30 Ml Udc) 30 ml PO Q12H PRN PRN Reason: Constipation Stop: 12/31/20 19:26 Metoprolol Succinate (Metoprolol Succ 50mg Ext Rel Tab) 50 mg PO BID [facility] Stop: 12/31/20 20:59 Last Admin: 12/08/20 08:48 Dose: 50 mg Documented by: Miscellaneous (Carbohydrates For Hypoglycemia ) 15 - 30 gm PO UD PRN PRN Reason: Hypoglycemia Protocol Stop: 12/31/20 19:26 Last Admin: 12/01/20 20:23 Dose: 15 gm Documented by: Miscellaneous (Order Awaiting Action [Azelastine Nasal [place]]) 1 ea N/A QS [facility] Stop: 01/01/21 00:00 Last Admin: 12/08/20 08:53 Dose: Not Given Documented by: Ondansetron HCl (Ondansetron Inj 2 Mg/Ml 2 Ml Vial) 4 mg IV Q6H PRN PRN Reason: Nausea Stop: 12/31/20 19:26 Pantoprazole Sodium (Pantoprazole 40 Mg Tab) 40 mg PO BID [facility]; Protocol Stop: 12/31/20 20:59 Last Admin: 12/08/20 08:48 Dose: 40 mg Documented by: Polyethylene Glycol (Polyethylene (Miralax) 17 Gm Pack) 17 gm PO DAILY PRN PRN Reason: Constipation Stop: 12/31/20 19:26 Potassium Chloride (Potassium Chloride Crtab 20 Meq Tabcr) 20 meq PO DAILY [facility] Stop: 01/07/21 08:59 Last Admin: 12/08/20 10:38 Dose: 20 meq Documented by: Temazepam (Temazepam 7.5 Mg Capsule) 7.5 mg PO HS PRN PRN Reason: Sleep Stop: 12/31/20 19:26 Last Admin: 12/01/20 20:54 Dose: 7.5 mg Documented by: Trazodone HCl (Trazodone Hcl 100 Mg Tab) 100 mg PO HS PRN PRN Reason: Sleep Stop: 12/31/20 19:26 Last Admin: 12/01/20 20:56 Dose: 100 mg Documented by:
--- NOTE | 2020-12-08 15:16 | Hospitalist Progress Note ---
Date of Service December 08, 2020 Assessment & Plan (1) Acute on chronic diastolic CHF (congestive heart failure): Plan: Presented with increasing lower extremity edema for 2 weeks with increasing shortness of breath Has acute on chronic diastolic heart failure. Echo showed: Moderate concentric LVH with paradoxical septal motion consistent with right ventricular volume overload. EF 55 to 60%. Severe calcific aortic valve stenosis. Trace MR and trace TR and right ventricle is mildly dilated Appreciate cardiology input and recommendation No evidence of ACS We will continue intravenous Lasix 40 mg 3 times daily Clinically much better Improved a lot and the Lasix doses have been changed to oral OT recommended rehab and physical therapy recommended home Remains stable and like to be discharged in a day or 2 Will need CHF clinic follow-up and cardiology appointment in [place] on discharge with PRP Has been tolerating oral diuretics as advised We will get to do steps O2 saturation test prior to discharge Elevated CO2 level to 49 Likely contributed by use of diuretics with contraction alkalosis ABG did show P CO2 of 77 CPAP applied and will continue CPAP throughout the night We will monitor PRP tomorrow and likely discharge tomorrow (2) Acute on chronic HFrEF (heart failure with reduced ejection fraction): Plan: Acute on chronic HFrEF has been ruled out by echo (3) Aortic stenosis: Plan: Severe valvulopathy with indications for replacement. Per cardiology note and discussion with patient, he is not interested at this time. Aortic stenosis is contributing the heart failure Denies any chest pain and/or syncope Lisinopril will not be continued (4) Pulmonary hypertension: Plan: noted on records. Right ventricular systolic pressure is elevated at 40 to 50 mmHg (5) Atrial fibrillation: Plan: Persistent atrial fibrillation on telemetry. Rate controlled with metoprolol and digoxin, not on anticoagulation due to prior history of GI bleed Heart rate remains stable (6) Diabetes: Plan: Continue with basal bolus insulin. Repeat A1c on 12/02 was 6.2. Hypoglycemia was noted and insulin control was loosened to correction factor only. He is not requiring insulin at this time. Continue to monitor. (7) GALEN (obstructive sleep apnea): Plan: Continue CPAP at bedtime. Strongly advised to use CPAP at night (8) HTN (hypertension): Plan: Blood pressure on the low side, home lisinopril was held. He continues on furosemide twice daily for diuresis efforts. Continue metoprolol succinate 50 mg p.o. twice daily per home regimen. (9) DVT prophylaxis: Plan: DVT prophylaxis: Lovenox subcu every 12 hours Dispo: PCU Full Code Admission and Anticipated Discharge Date Admission Date: December 01, 2020 Subjective 12/04/2020 The patient was seen and examined in telemetry unit He has been feeling much better No shortness of breath at rest but feels generally weak and lethargic 12/05/2020 The patient was seen and examined in telemetry unit He has been feeling much better Denies any chest pain, shortness of breath in bed His edema of the legs have been improving 12/06/2020 The patient was seen and examined in telemetry unit He has been feeling much better at rest Remains generally weak and gets shortness of breath with minimal exertion Denies any chest pain and or palpitation 12/07/2020 The patient was seen and examined in telemetry unit He remains stable and denies any significant symptoms He has had physical therapy and did reasonably well 12/08/2020 The patient was seen and examined in telemetry unit He remains stable without any significant symptoms but noted to have a high CO2 of 49 ABG showed carbon oxide of 77 Will not be discharged today and will continue with the CPAP at night Review of Systems Review of Systems: All systems reviewed and are unremarkable except as noted below Respiratory: No shortness of breath at rest Musculoskeletal: No acute arthritis in any joint Physical Exam Physical Exam: Sitting on a chair without any apparent distress Constitutional: well developed, well nourished, + ill appearing and + obese Eyes: PERRL, conjunctivae normal, anicteric sclerae ENMT: external ear and nose normal, oropharynx normal Neck: trachea midline, no thyromegaly Respiratory: no respiratory distress Auscultation: + diminished lung sounds and + crackles (Bibasilar crackles) Cardiovascular: Rate/Rhythm: regular rate and regular rhythm; not tachycardic Heart Sounds: normal S1, normal S2 and + murmur (2/6 ejection systolic murmur over the precordium) Extremities: + edema (1+ edema bilaterally) Gastrointestinal (Abdomen): Inspection/Auscultation: + abdomen distended and normal bowel sounds Percussion/Palpation: abdomen soft; abdomen nontender Musculoskeletal: No acute arthritis in any joint Neurologic: Alert, awake and oriented x3 Lymphatic: no cervical or axillary lymphadenopathy Results & Data Results & [facility] ([facility]) Vital Signs (Past 12 Hours) Vital Signs Temp Pulse Pulse Pulse Pulse Pulse Pulse 12/08/20 11:26 36.7 C 12/08/20 09:34 102 H 102 H 102 H 101 H 104 H 12/08/20 08:00 86 12/08/20 07:59 36.8 C 12/08/20 04:06 36.6 C Pulse Pulse Pulse Resp Resp Resp Resp 12/08/20 11:26 80 18 12/08/20 09:34 90 97 H 20 20 22 12/08/20 08:00 12/08/20 07:59 95 H 18 12/08/20 04:06 83 20 Resp Resp Resp Resp BP BP Pulse Ox 12/08/20 11:26 109/56 L 91 12/08/20 09:34 21 23 20 20 12/08/20 08:00 12/08/20 07:59 153/75 H 94 12/08/20 04:06 136/81 94 Pulse Ox Pulse Ox Pulse Ox Pulse Ox Pulse Ox Pulse Ox Pulse Ox 12/08/20 11:26 12/08/20 09:34 88 L 94 87 L 90 83 L 95 84 L 12/08/20 08:00 12/08/20 07:59 12/08/20 04:06 Laboratory Results Short CBC 12/08/20 Range/Units 05:33 WBC 11.20 H (4.8-10.8) K/uL Hgb 11.5 L (14.0-18.0) g/dL Hct 36.2 L (42-52) % Plt Count 245 (130-400) K/uL BMP 12/08/20 05:33 Sodium 140 Potassium 3.4 L Chloride 96 L Carbon Dioxide 49 H* BUN 29 H Creatinine 0.97 Calcium 8.7 Medications Administered Current Inpatient Medications Acetaminophen (Acetaminophen 325 Mg Tab) 650 mg PO Q4H PRN PRN Reason: Pain or Fever Stop: 12/31/20 19:26 Al Hydrox/Mg Hydrox/Simethicone (Aluminum/Magnesium Susp 30 Ml Udc) 15 ml PO Q4H PRN PRN Reason: Dyspepsia Stop: 12/31/20 19:26 Aspirin (Aspirin 81 Mg Chew) 81 mg PO DAILY [facility] Stop: 01/01/21 08:59 Last Admin: 12/08/20 08:53 Dose: 81 mg Documented by: Atorvastatin Calcium (Atorvastatin 40 Mg Tab) 80 mg PO DAILY [facility] Stop: 01/01/21 08:59 Last Admin: 12/08/20 08:49 Dose: 80 mg Documented by: Cetirizine HCl (Cetirizine Hcl 10 Mg Tablet) 10 mg PO DAILY [facility] Stop: 01/01/21 08:59 Last Admin: 12/08/20 08:49 Dose: 10 mg Documented by: Dextrose (Dextrose 50% 50 Ml Syringe) 25 - 50 ml IV UD PRN; Protocol PRN Reason: Hypoglycemia Protocol Stop: 12/31/20 19:26 Digoxin (Digoxin 0.125 Mg Tab) 0.125 mg PO PM [facility] Stop: 12/31/20 20:59 Last Admin: 12/07/20 20:19 Dose: 0.125 mg Documented by: Enoxaparin Sodium (Enoxaparin Inj 40 Mg/0.4 Ml Syr) 40 mg SQ Q12H [facility] Stop: 12/31/20 21:59 Last Admin: 12/08/20 10:38 Dose: 40 mg Documented by: Furosemide (Furosemide 80 Mg Tab) 80 mg PO [id number] [facility] Stop: 01/05/21 11:59 Last Admin: 12/08/20 08:48 Dose: 80 mg Documented by: Glucagon (Glucagon For Inj 1 Mg Vial) 1 mg SQ UD PRN; Protocol PRN Reason: Hypoglycemia Protocol Stop: 12/31/20 19:26 Glucose (Glucose 10 Tabs/Tube) 4 - 8 tabs PO UD PRN; Protocol PRN Reason: Hypoglycemia Protocol Stop: 12/31/20 19:26 Glucose (Glucose 40% Gel 15 Gm Tube) 15 - 30 gm PO UD PRN; Protocol PRN Reason: Hypoglycemia Protocol Stop: 12/31/20 19:26 Insulin Aspart (Insulin Aspart 100 Units/Ml 3 Ml Pen) 0 units SC ACHS [facility] Stop: 12/31/20 20:59 Last Admin: 12/08/20 12:02 Dose: 1 units Documented by: Magnesium Hydroxide (Magnesium Hydroxide Susp 30 Ml Udc) 30 ml PO Q12H PRN PRN Reason: Constipation Stop: 12/31/20 19:26 Metoprolol Succinate (Metoprolol Succ 50mg Ext Rel Tab) 50 mg PO BID [facility] Stop: 12/31/20 20:59 Last Admin: 12/08/20 08:48 Dose: 50 mg Documented by: Miscellaneous (Carbohydrates For Hypoglycemia ) 15 - 30 gm PO UD PRN PRN Reason: Hypoglycemia Protocol Stop: 12/31/20 19:26 Last Admin: 12/01/20 20:23 Dose: 15 gm Documented by: Miscellaneous (Order Awaiting Action [Azelastine Nasal [place]]) 1 ea N/A QS [facility] Stop: 01/01/21 00:00 Last Admin: 12/08/20 08:53 Dose: Not Given Documented by: Ondansetron HCl (Ondansetron Inj 2 Mg/Ml 2 Ml Vial) 4 mg IV Q6H PRN PRN Reason: Nausea Stop: 12/31/20 19:26 Pantoprazole Sodium (Pantoprazole 40 Mg Tab) 40 mg PO BID [facility]; Protocol Stop: 12/31/20 20:59 Last Admin: 12/08/20 08:48 Dose: 40 mg Documented by: Polyethylene Glycol (Polyethylene (Miralax) 17 Gm Pack) 17 gm PO DAILY PRN PRN Reason: Constipation Stop: 12/31/20 19:26 Potassium Chloride (Potassium Chloride Crtab 20 Meq Tabcr) 20 meq PO DAILY [facility] Stop: 01/07/21 08:59 Last Admin: 12/08/20 10:38 Dose: 20 meq Documented by: Temazepam (Temazepam 7.5 Mg Capsule) 7.5 mg PO HS PRN PRN Reason: Sleep Stop: 12/31/20 19:26 Last Admin: 12/01/20 20:54 Dose: 7.5 mg Documented by: Trazodone HCl (Trazodone Hcl 100 Mg Tab) 100 mg PO HS PRN PRN Reason: Sleep Stop: 12/31/20 19:26 Last Admin: 12/01/20 20:56 Dose: 100 mg Documented by:
[2020-12-08] MEDS: DIGOXIN 0.125 MG TAB PO SCH (20:25)
[2020-12-09 07:50] LABS: Creatinine Clr Calc Pharmacy 56.3 ml/min; Est GFR (African American) 79.4 ml/min; Est GFR (Non-African American) 68.5 ml/min
[2020-12-09 07:51] LABS: BUN Creatinine Ratio 25.9 (10-20); Calcium 8.8 mg/dl (8.5-10.1); Potassium 3.5 mmol/L (3.5-5.1)
[2020-12-09] MEDS: FUROSEMIDE 80 MG TAB PO SCH (08:07)
[2020-12-09] MEDS: ATORVASTATIN 40 MG TAB PO SCH (08:07)
[2020-12-09] MEDS: METOPROLOL SUCC 50MG EXT REL TAB PO SCH ×2 (08:07→20:24)
[2020-12-09] MEDS: POTASSIUM CHLORIDE CRTAB 20 MEQ TABCR PO SCH (08:07)
[2020-12-09] MEDS: PANTOprazole 40 MG TAB PO SCH ×2 (08:07→20:24)
[2020-12-09] MEDS: CETIRIZINE HCL 10 MG TABLET PO SCH (08:07)
[2020-12-09] MEDS: ASPIRIN 81 MG CHEW PO SCH (08:09)
[2020-12-09] MEDS: INSULIN ASPART 100 UNITS/ML 3 ML PEN SC SCH ×4 (08:10→20:25)
[2020-12-09] MEDS ORDERED: acetaZOLAMIDE 250 MG TAB PO SCH (09:00)
--- NOTE | 2020-12-09 10:38 | Cardiology Progress Note ---
Date of Service December 09, 2020 Assessment & Plan (1) Acute on chronic diastolic CHF (congestive heart failure): (2) Aortic stenosis: (3) Gastric ulcer: (4) Atrial fibrillation: (5) Pulmonary hypertension: Plan: 85-year-old male admitted with decompensated diastolic heart failure secondary to severe valvular disease, severe aortic stenosis. Symptoms improved with IV diuresis. Down 9 kgs since admission. PLAN -Lisinopril discontinued. Do not resume on discharge due to severe -concerns regarding elevated CO2. Will hold PM dose of furosemide today. Reduce to 80 mg daily starting tomorrow. 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 Consider future valve intervention (patient previously declined) Will send message to [place] cardiology about sooner return visit for close monitoring. Case discussed with Dr. Ca Admission and Anticipated Discharge Date Admission Date: December 01, 2020 Supervising Physician Co-Signing Physician Notes Assessment and plan as above patient seen and examined. Rising CO2 and reflection of patient's contraction alkalosis and underlying pulmonary disease. We will reduce diuretic Subjective Patient resting comfortably. Denies acute complaints. SOB at baseline. No chest pain. Tolerating oral diuretics. No dizziness. No orthopnea, PND. Edema improved. Cough improved. Still wearing supplemental O2. Tolerated CPAP last night Review of Systems Review of Systems: All systems reviewed & are unremarkable except as noted in HPI & below Physical Exam Constitutional: WD/WN, vitals as above Eyes: PERRL, conjunctivae normal, anicteric sclerae ENMT: external ear and nose normal, oropharynx normal Neck: trachea midline, no thyromegaly Respiratory: normal respiratory effort, lungs clear to auscultation Auscultation: + diminished lung sounds (but clear, no rales or wheezes) Cardiovascular: Rate/Rhythm: + irregularly irregular Heart Sounds: + murmur (Harsh grade 3/6 systolic murmur no diastolic); no gallop Palpation: normal PMI Vessels: normal carotid upstroke and radial pulses present; no JVD and no carotid bruit Extremities: no edema (No significant edema. compression stockings in place) Gastrointestinal (Abdomen): normal bowel sounds, soft, nontender, no hepatosplenomegaly Musculoskeletal: no cyanosis or clubbing, extremities motor strength 5/5 Skin: no rashes, warm and dry Neurologic: PERRL, EOMI, accommodation nl, no face palsy, no dysarthria Psychiatric: A+Ox3, euthymic affect Results & Data ([facility]) Vital Signs (Past 12 Hours) Vital Signs Temp Pulse Pulse Resp BP Pulse Ox 12/09/20 07:50 36.4 C L 92 H 18 131/63 97 12/09/20 03:08 36.1 C L 79 19 120/66 95 12/09/20 02:41 53 L 24 95 12/08/20 22:47 36.0 C L 85 19 108/62 95 Laboratory Results 12/09/20 12/09/20 12/08/20 Range/Units 07:08 06:33 20:02 Sodium 141 (136-145) mmol/L Potassium 3.5 (3.5-5.1) mmol/L Chloride 91 L (98-107) mmol/L Carbon Dioxide 53 H* (21-32) mmol/L Anion Gap -3.0 L (3-11) BUN 26 H (7-18) mg/dl Creatinine 1.01 (0.6-1.4) mg/dl Est Cr Clr Drug Dosing 56.3 ml/min Est GFR ( Amer) 79.4 ml/min Est GFR (Non-Af Amer) 68.5 ml/min BUN/Creatinine Ratio 25.9 H (10-20) Glucose 124 H (70-99) mg/dl POC Glucose 131 H 218 H (70-99) mg/dl Calcium 8.8 (8.5-10.1) mg/dl 12/08/20 12/08/20 Range/Units 16:18 11:13 Sodium (136-145) mmol/L Potassium (3.5-5.1) mmol/L Chloride (98-107) mmol/L Carbon Dioxide (21-32) mmol/L Anion Gap (3-11) BUN (7-18) mg/dl Creatinine (0.6-1.4) mg/dl Est Cr Clr Drug Dosing ml/min Est GFR ( Amer) ml/min Est GFR (Non-Af Amer) ml/min BUN/Creatinine Ratio (10-20) Glucose (70-99) mg/dl POC Glucose 150 H 187 H (70-99) mg/dl Calcium (8.5-10.1) mg/dl Diagnostic Findings Telemetry reviewed - Atrial fibrillation with controlled rates. No recurrent VT overnight or this morning. Medications Administered Current Inpatient Medications Acetaminophen (Acetaminophen 325 Mg Tab) 650 mg PO Q4H PRN PRN Reason: Pain or Fever Stop: 12/31/20 19:26 Al Hydrox/Mg Hydrox/Simethicone (Aluminum/Magnesium Susp 30 Ml Udc) 15 ml PO Q4H PRN PRN Reason: Dyspepsia Stop: 12/31/20 19:26 Aspirin (Aspirin 81 Mg Chew) 81 mg PO DAILY [facility] Stop: 01/01/21 08:59 Last Admin: 12/09/20 08:09 Dose: 81 mg Documented by: Atorvastatin Calcium (Atorvastatin 40 Mg Tab) 80 mg PO DAILY [facility] Stop: 01/01/21 08:59 Last Admin: 12/09/20 08:07 Dose: 80 mg Documented by: Cetirizine HCl (Cetirizine Hcl 10 Mg Tablet) 10 mg PO DAILY [facility] Stop: 01/01/21 08:59 Last Admin: 12/09/20 08:07 Dose: 10 mg Documented by: Dextrose (Dextrose 50% 50 Ml Syringe) 25 - 50 ml IV UD PRN; Protocol PRN Reason: Hypoglycemia Protocol Stop: 12/31/20 19:26 Digoxin (Digoxin 0.125 Mg Tab) 0.125 mg PO PM [facility] Stop: 12/31/20 20:59 Last Admin: 12/08/20 20:25 Dose: 0.125 mg Documented by: Enoxaparin Sodium (Enoxaparin Inj 40 Mg/0.4 Ml Syr) 40 mg SQ Q12H [facility] Stop: 12/31/20 21:59 Last Admin: 12/08/20 20:26 Dose: 40 mg Documented by: Furosemide (Furosemide 80 Mg Tab) 80 mg PO QAM [facility] Stop: 01/09/21 08:59 Glucagon (Glucagon For Inj 1 Mg Vial) 1 mg SQ UD PRN; Protocol PRN Reason: Hypoglycemia Protocol Stop: 12/31/20 19:26 Glucose (Glucose 10 Tabs/Tube) 4 - 8 tabs PO UD PRN; Protocol PRN Reason: Hypoglycemia Protocol Stop: 12/31/20 19:26 Glucose (Glucose 40% Gel 15 Gm Tube) 15 - 30 gm PO UD PRN; Protocol PRN Reason: Hypoglycemia Protocol Stop: 12/31/20 19:26 Insulin Aspart (Insulin Aspart 100 Units/Ml 3 Ml Pen) 0 units SC ACHS [facility] Stop: 12/31/20 20:59 Last Admin: 12/09/20 08:10 Dose: Not Given Documented by: Magnesium Hydroxide (Magnesium Hydroxide Susp 30 Ml Udc) 30 ml PO Q12H PRN PRN Reason: Constipation Stop: 12/31/20 19:26 Metoprolol Succinate (Metoprolol Succ 50mg Ext Rel Tab) 50 mg PO BID [facility] Stop: 12/31/20 20:59 Last Admin: 12/09/20 08:07 Dose: 50 mg Documented by: Miscellaneous (Carbohydrates For Hypoglycemia ) 15 - 30 gm PO UD PRN PRN Reason: Hypoglycemia Protocol Stop: 12/31/20 19:26 Last Admin: 12/01/20 20:23 Dose: 15 gm Documented by: Miscellaneous (Order Awaiting Action [Azelastine Nasal [place]]) 1 ea N/A QS [facility] Stop: 01/01/21 00:00 Last Admin: 12/09/20 08:09 Dose: Not Given Documented by: Ondansetron HCl (Ondansetron Inj 2 Mg/Ml 2 Ml Vial) 4 mg IV Q6H PRN PRN Reason: Nausea Stop: 12/31/20 19:26 Pantoprazole Sodium (Pantoprazole 40 Mg Tab) 40 mg PO BID [facility]; Protocol Stop: 12/31/20 20:59 Last Admin: 12/09/20 08:07 Dose: 40 mg Documented by: Polyethylene Glycol (Polyethylene (Miralax) 17 Gm Pack) 17 gm PO DAILY PRN PRN Reason: Constipation Stop: 12/31/20 19:26 Potassium Chloride (Potassium Chloride Crtab 20 Meq Tabcr) 20 meq PO DAILY [facility] Stop: 01/07/21 08:59 Last Admin: 12/09/20 08:07 Dose: 20 meq Documented by: Temazepam (Temazepam 7.5 Mg Capsule) 7.5 mg PO HS PRN PRN Reason: Sleep Stop: 12/31/20 19:26 Last Admin: 12/01/20 20:54 Dose: 7.5 mg Documented by: Trazodone HCl (Trazodone Hcl 100 Mg Tab) 100 mg PO HS PRN PRN Reason: Sleep Stop: 12/31/20 19:26 Last Admin: 12/01/20 20:56 Dose: 100 mg Documented by:
[2020-12-09] MEDS: ENOXAPARIN INJ 40 MG/0.4 ML SYR SQ SCH ×2 (11:59→22:10)
--- NOTE | 2020-12-09 14:05 | Pulmonary Consultation ---
Date of Consultation December 09, 2020 Assessment & Plan (1) GALEN (obstructive sleep apnea): Attending: Dr. Cruz Impression: This is an 85-year-old male with a history of obstructive sleep apnea on CPAP at home, acute on chronic diastolic congestive heart failure, severe aortic stenosis, pulmonary hypertension, atrial fibrillation, and obesity. The patient presents with shortness of breath and found to be in acute exacerbation of CHF. He was diuresed and improved significantly. He does require supplemental oxygen at this time with 2 L/min via nasal cannula at rest and 4 L/min by nasal cannula with exertion. He currently has a concentrator at home and has 2 L/min of supplemental oxygen bled into his CPAP machine. We are consulted for evaluation of increasing PCO2 and disposition on discharge. Recommendations: 1. 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 Patient's most recent order for CPAP was 10/29/2019 for a 5-year contract at 14 cm of water. * Unclear as to when last titration study was completed * Compliance report as of 11/30/2020 shows good usage with up to 17 hours/day sleep. * AHI was 18.3 suggesting failure on CPAP. * At this time, patient will require BiPAP due to elevated AHI and rising PCO2. Patient is at increased risk of due to his obstructive disease and requires continued positive air pressure therapy * Comorbid conditions include obstructive sleep apnea, congestive heart failure, obesity * Will work with case management to get BiPAP approval * Recommend follow-up with either sleep medicine [facility] or with [facility] any physician group if the patient desires * Increase BiPAP settings tonight to 15/10 and bleeding 2 L/min of supplemental oxygen * Repeat ABG in the morning 2. Hypoxia: * Two-step evaluation completed yesterday. Patient qualifies for supplemental oxygen at 2 L/min via nasal cannula rest and 4 L/min via nasal cannula with exertion * Most recent chest x-ray is from 11/30/2020. Obtain 2 view chest x-ray PA and lateral today * Patient with no tobacco abuse history * Denies other pulmonary disease * Discharge home when ready based on two-step and will reevaluate outpatient * No pulmonary function test results available * Patient is not on any bronchodilators or other pulmonary medications at home. 3. CHF/atrial stenosis/atrial fibrillation: * This is being well managed by cardiology * Continue diuresis * Comorbidities contributing to hypercapnia (2) Hypercapnia with mixed acid-base disorder: (3) Aortic stenosis: (4) Acute on chronic diastolic CHF (congestive heart failure): Supervising Physician Co-Signing Physician Notes Patient seen and examined with DEEPAK Santiago. Agree with his assessment and plan aside for any additions/exceptions noted: Patient has acute on chronic hypercapnic respiratory failure. He also has acute on chronic CHF. Recommend transitioning to BiPAP therapy as an outpatient to help prevent further readmissions and exacerbations of his underlying CHF and hypercapnic respiratory failure. Recommend a BiPAP setting of 16/01. ABG to be completed tomorrow morning. Chest x-ray obtained today which demonstrates a right pleural effusion. Patient is comfortable on room air at this present time. He does not appear septic. We will hold on thoracentesis unless his clinical condition worsens. Thank you for the consult. Pulmonary continue to follow along with you. History of Present Illness Reason for Consultation: Hypercapnia Attending Physician: Octaviano Robledo MD History of Present Illness Attending: Dr. Cruz This is a 85 yo male from [place] with a PMH severe aortic stenosis, acute on chronic diastolic congestive heart failure, obstructive sleep apnea with chronic CPAP usage at 14 cm of water, nocturnal hypoxia with supplemental oxygen at 2 L/min at night, pulmonary hypertension, atrial fibrillation, asthma, hyperlipidemia, hypertension, diabetes mellitus, and obesity with a BMI of 34.4 kg/m. Patient admitted for shortness of breath and seen by cardiology. At this point he appears to be compensated from a CHF standpoint. He does have increased supplemental oxygen usage requirements. A two-step was completed and patient will need 2 L/min via nasal cannula at rest and 4L/min via nasal cannula with exertion. Patient currently has hypercapnia with PCO2 of 72. Previously his P CO2 was in the 50s. Patient does have a compensatory respiratory alkalosis. Patient denies any acute shortness of breath. He does well ambulating up and d own the [place] with the supplemental oxygen. He denies any chest pain or tightness. He has no fever or chills. He denies any cough or sputum production. He feels as though he is ready to be discharged home with home health. Patient states he has CPAP at home but he does not know settings and he does not know how much oxygen is used. He is able to tell me that he uses [employer] [facility]. I did call [facility] and obtain the following information. Review of both the [email or web address] EMR at [facility] as well as epic at [facility] showed no evidence of PFTs or polysomnography. There is no record of sleep medicine after 2018. Most recent order [facility] was 10/29/2019. I suspect that this is a replacement order for recalled Respironics dream station CPAP. There is no record of the patient's last titration study. I did try to call the patient's at [phone] there is no answer and voicemail was full. I also called [phone]. There was no answer or voicemail offered. Patient denies any history of tobacco abuse or malignancy or other pulmonary disease. There is an area of concern on the chest x-ray. Patient is scheduled for CT chest this afternoon. Uses [facility] CPAP order issued 10/29/2019 14 cm H2O with 2 L/min bleed with use Oxygen concentrator at home. No portable tanks or nebulizer at this time Most recent compliance report with good usage history. AHI 18.3 Allergies Allergy/AdvReac Type Severity Reaction Status Date / Time No Known Allergies Allergy Unverified 12/01/20 17:09 Home Medications Medication Instructions Recorded Confirmed Type aspirin 81 mg chewable tablet 81 mg PO QAM 12/01/20 12/01/20 History atorvastatin 80 mg tablet (Lipitor) 80 mg PO QAM 12/01/20 12/01/20 History azelastine 137 mcg (0.1 %) nasal 1 spray INTRANASAL BID 12/01/20 12/01/20 History spray aerosol cetirizine 10 mg tablet 10 mg PO DAILY 12/01/20 12/01/20 History digoxin 125 mcg (0.125 mg) tablet 125 mcg PO PM 12/01/20 12/01/20 History (Digox) ferrous sulfate 325 mg (65 mg 325 mg PO QAM 12/01/20 12/01/20 History iron) tablet furosemide 20 mg tablet (Lasix) 60 mg PO QAM 12/01/20 12/01/20 History glipizide 10 mg tablet, extended 10 mg PO DAILY 12/01/20 12/01/20 History release 24 hr lisinopril 5 mg tablet (Zestril) 2.5 mg PO QAM 12/01/20 12/01/20 History metformin 1,000 mg tablet 1,000 mg PO BIDWMEAL 12/01/20 12/01/20 History metoprolol succinate 25 mg 50 mg PO BID 12/01/20 12/01/20 History tablet,extended release 24 hr (Toprol XL) potassium chloride 10 mEq 10 meq PO BID 12/01/20 12/01/20 History tablet,extended release (Klor-Con) rabeprazole 20 mg tablet,delayed 20 mg PO BID 12/01/20 12/01/20 History release (AcipHex) temazepam 7.5 mg capsule (Restoril) 7.5 mg PO HS PRN 12/01/20 12/01/20 History trazodone 100 mg tablet 100 mg PO HS PRN 12/01/20 12/01/20 History Patient History Medical History Aortic stenosis Asthma Atrial fibrillation CHF (congestive heart failure) Diabetes HTN (hypertension) Hyperlipidemia Insomnia GALEN (obstructive sleep apnea) Pulmonary hypertension Surgical History History of esophagogastroduodenoscopy (EGD) Family History Father Diabetes Coronary heart disease Mother Coronary heart disease Hypertension Social History Smoking Status: Former smoker Smoking End Date: 1994; Hx Alcohol Use: No Hx Substance Use: No Preferred Language: Iraqi Communication Ability: Effective 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 Pleasant sitting in bedside chair. Very hard of hearing. EYES: No icterus, gaze conjugate NOSE: No evidence of epistaxis. Nasal cannula in place and secure MOUTH: No lesions or candidiasis. Mucosa moist NECK: Supple. No appreciation of carotid bruits LUNGS: CTA B/L, no wheezes, rales or rhonchi. Decreased breath sounds at bilateral bases. HEART: Irregular irregular, rate controlled in the 70s ABDOMEN: Soft, NT, ND, BS Present EXTREMITIES: No LE edema, pedal pulses intact and equal bilaterally NEURO: A&OX3 Results & Data Results & Data ([facility]) Vital Signs (Past 12 Hours) Vital Signs Temp Pulse Pulse Resp BP Pulse Ox 12/09/20 12:07 36.7 C 72 16 121/60 96 12/09/20 07:50 36.4 C L 92 H 18 131/63 97 12/09/20 03:08 36.1 C L 79 19 120/66 95 12/09/20 02:41 53 L 24 95 Laboratory Results 12/08/20 05:33 12/09/20 06:33 12/08/20 08:40 ABG pH 7.41 ABG pCO2 77 H ABG pO2 63 L ABG HCO3 47 H ABG O2 Saturation 92.6 ABG Base Excess 18.8 H Diagnostic Findings Chest X-Ray 12/01/20 15:41 XR chest 1V portable CLINICAL HISTORY: sob COMPARISON STUDY: No previous studies for comparison. FINDINGS: There is no pneumothorax. A small right pleural effusion is noted. Right lower lung airspace opacity is present. Moderate cardiomegaly is noted. There is no evidence for overt pulmonary edema. IMPRESSION: 1. Small right pleural effusion. Right lower lung airspace opacity which may reflect an infectious process or asymmetric pulmonary edema. Radiographic follow-up is recommended to ensure resolution. 2. Moderate cardiomegaly. ACT 112: Negative or not required by law. Electronically signed by: Ron Choudhary M.D. 12/01/2020 4:34 PM PG Care Time/CCT Total # of Minutes Spent Total Time Spent with Patient: Total time spent is greater than 50% in coordination of care (as documented) at patient's floor/unit and/or counseling patient: Coding Level of Care Code 94895 Initial Inpt Care Lvl 3 Diagnoses GALEN (obstructive sleep apnea) G47.33 Hypercapnia with mixed acid-base disorder E87.4 Aortic stenosis I35.0 Acute on chronic diastolic CHF (congestive heart failure) I50.33 Time Spent (min) 70 Comment Including discussion with [facility] and other providers
--- NOTE | 2020-12-09 15:48 | XRay Report ---
TWO VIEW CHEST CLINICAL HISTORY: Hypoxia. FINDINGS: PA and lateral chest radiographs are compared to study dated 12/01/2020. The heart is enlarg ed noting atherosclerotic calcification of the thoracic aorta. There is pulmonary vascular congestion . There are right larger left pleural effusions with bibasilar consolidation. There is no pneumothora x. The skeletal structures are osteopenic. 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 The bony thorax appears intact. IMPRESSION: 1. Cardiomegaly with evidence of congestive failure. 2. Layering right larger than left pleural effusions with bibasilar consolidation. ACT 112: Negative or not required by law. Electronically signed by: Prosper Marlow M.D. 12/09/2020 3:47 PM
--- NOTE | 2020-12-09 17:07 | Hospitalist Progress Note ---
Date of Service December 09, 2020 Assessment & Plan (1) Acute on chronic diastolic CHF (congestive heart failure): Plan: Presented with increasing lower extremity edema for 2 weeks with increasing shortness of breath Has acute on chronic diastolic heart failure. Echo showed: Moderate concentric LVH with paradoxical septal motion consistent with right ventricular volume overload. EF 55 to 60%. Severe calcific aortic valve stenosis. Trace MR and trace TR and right ventricle is mildly dilated Appreciate cardiology input and recommendation No evidence of ACS We will continue intravenous Lasix 40 mg 3 times daily Clinically much better Improved a lot and the Lasix doses have been changed to oral OT recommended rehab and physical therapy recommended home Remains stable and like to be discharged in a day or 2 Will need CHF clinic follow-up and cardiology appointment in [place] on discharge with PRP Has been tolerating oral diuretics as advised We will get to do steps O2 saturation test prior to discharge-we will need 2 L at rest and 4 L with ambulation Lasix dose has been decreased to 80 mg daily Elevated CO2 level to 49 Likely contributed by use of diuretics with contraction alkalosis ABG did show P CO2 of 77 He was put on BiPAP last night and the morning CO2 was elevated at 53 Appreciate pulmonary medicine input and recommendation We will have nocturnal pulse oximetry on 12/09/2020 and will be given BiPAP on discharge (2) Acute on chronic HFrEF (heart failure with reduced ejection fraction): Plan: Acute on chronic HFrEF has been ruled out by echo (3) Aortic stenosis: Plan: Severe valvulopathy with indications for replacement. Per cardiology note and discussion with patient, he is not interested at this time. Aortic stenosis is contributing the heart failure Denies any chest pain and/or syncope Lisinopril will not be continued (4) Pulmonary hypertension: Plan: noted on records. Right ventricular systolic pressure is elevated at 40 to 50 mmHg (5) Atrial fibrillation: Plan: Persistent atrial fibrillation on telemetry. Rate controlled with metoprolol and digoxin, not on anticoagulation due to prior history of GI bleed Heart rate remains stable (6) Diabetes: Plan: Continue with basal bolus insulin. Repeat A1c on 12/02 was 6.2. Hypoglycemia was noted and insulin control was loosened to correction factor only. He is not requiring insulin at this time. Continue to monitor. He will not be given glipizide on discharge due to risk of hypoglycemia at home (7) GALEN (obstructive sleep apnea): Plan: Continue CPAP at bedtime. Strongly advised to use CPAP at night (8) HTN (hypertension): Plan: Blood pressure on the low side, home lisinopril was held. He continues on furosemide twice daily for diuresis efforts. Continue metoprolol succinate 50 mg p.o. twice daily per home regimen. (9) DVT prophylaxis: Plan: DVT prophylaxis: Lovenox subcu every 12 hours Dispo: PCU Full Code Admission and Anticipated Discharge Date Admission Date: December 01, 2020 Subjective 12/04/2020 The patient was seen and examined in telemetry unit He has been feeling much better No shortness of breath at rest but feels generally weak and lethargic 12/05/2020 The patient was seen and examined in telemetry unit He has been feeling much better Denies any chest pain, shortness of breath in bed His edema of the legs have been improving 12/06/2020 The patient was seen and examined in telemetry unit He has been feeling much better at rest Remains generally weak and gets shortness of breath with minimal exertion Denies any chest pain and or palpitation 12/07/2020 The patient was seen and examined in telemetry unit He remains stable and denies any significant symptoms He has had physical therapy and did reasonably well 12/08/2020 The patient was seen and examined in telemetry unit He remains stable without any significant symptoms but noted to have a high CO2 of 49 ABG showed carbon oxide of 77 Will not be discharged today and will continue with the CPAP at night 12/09/2020 The patient was seen and examined in telemetry unit He remains very upset as he cannot go home today Denies any significant symptoms at rest but his CO2 level is going up Pulmonary medicine consulted Review of Systems Review of Systems: All systems reviewed and are unremarkable except as noted below Respiratory: No shortness of breath at rest Musculoskeletal: No acute arthritis in any joint Physical Exam Physical Exam: Sitting on a chair without any apparent distress Constitutional: well developed, well nourished, + ill appearing and + obese Eyes: PERRL, conjunctivae normal, anicteric sclerae ENMT: external ear and nose normal, oropharynx normal Neck: trachea midline, no thyromegaly Respiratory: no respiratory distress Auscultation: + diminished lung sounds and + crackles (Bibasilar crackles) Cardiovascular: Rate/Rhythm: regular rate and regular rhythm; not tachycardic Heart Sounds: normal S1, normal S2 and + murmur (2/6 ejection systolic murmur over the precordium) Extremities: + edema (1+ edema bilaterally) Gastrointestinal (Abdomen): Inspection/Auscultation: + abdomen distended and normal bowel sounds Percussion/Palpation: abdomen soft; abdomen nontender Musculoskeletal: Denies any acute arthritis involving any joint Neurologic: Alert, awake and oriented x3. Generally weak without any focal neuro deficit Lymphatic: no cervical or axillary lymphadenopathy Results & Data Results & Data ([facility]) Vital Signs (Past 12 Hours) Vital Signs Temp Pulse Pulse Resp BP Pulse Ox 12/09/20 15:40 36.6 C 88 83 18 130/71 96 12/09/20 12:07 36.7 C 72 16 121/60 96 12/09/20 07:50 36.4 C L 92 H 18 131/63 97 Laboratory Results BMP 12/09/20 06:33 Sodium 141 Potassium 3.5 Chloride 91 L Carbon Dioxide 53 H* BUN 26 H Creatinine 1.01 Glucose 124 H Calcium 8.8 Medications Administered Current Inpatient Medications Acetaminophen (Acetaminophen 325 Mg Tab) 650 mg PO Q4H PRN PRN Reason: Pain or Fever Stop: 12/31/20 19:26 Al Hydrox/Mg Hydrox/Simethicone (Aluminum/Magnesium Susp 30 Ml Udc) 15 ml PO Q4H PRN PRN Reason: Dyspepsia Stop: 12/31/20 19:26 Aspirin (Aspirin 81 Mg Chew) 81 mg PO DAILY SANTIAGO Stop: 01/01/21 08:59 Last Admin: 12/09/20 08:09 Dose: 81 mg Documented by: Atorvastatin Calcium (Atorvastatin 40 Mg Tab) 80 mg PO DAILY SANTIAGO Stop: 01/01/21 08:59 Last Admin: 12/09/20 08:07 Dose: 80 mg Documented by: Cetirizine HCl (Cetirizine Hcl 10 Mg Tablet) 10 mg PO DAILY SANTIAGO Stop: 01/01/21 08:59 Last Admin: 12/09/20 08:07 Dose: 10 mg Documented by: Dextrose (Dextrose 50% 50 Ml Syringe) 25 - 50 ml IV UD PRN; Protocol PRN Reason: Hypoglycemia Protocol Stop: 12/31/20 19:26 Digoxin (Digoxin 0.125 Mg Tab) 0.125 mg PO PM SANTIAGO Stop: 12/31/20 20:59 Last Admin: 12/08/20 20:25 Dose: 0.125 mg Documented by: Enoxaparin Sodium (Enoxaparin Inj 40 Mg/0.4 Ml Syr) 40 mg SQ Q12H [facility] Stop: 12/31/20 21:59 Last Admin: 12/09/20 11:59 Dose: 40 mg Documented by: Furosemide (Furosemide 80 Mg Tab) 80 mg PO QAM [facility] Stop: 01/09/21 08:59 Glucagon (Glucagon For Inj 1 Mg Vial) 1 mg SQ UD PRN; Protocol PRN Reason: Hypoglycemia Protocol Stop: 12/31/20 19:26 Glucose (Glucose 10 Tabs/Tube) 4 - 8 tabs PO UD PRN; Protocol PRN Reason: Hypoglycemia Protocol Stop: 12/31/20 19:26 Glucose (Glucose 40% Gel 15 Gm Tube) 15 - 30 gm PO UD PRN; Protocol PRN Reason: Hypoglycemia Protocol Stop: 12/31/20 19:26 Insulin Aspart (Insulin Aspart 100 Units/Ml 3 Ml Pen) 0 units SC ACHS [facility] Stop: 12/31/20 20:59 Last Admin: 12/09/20 16:47 Dose: Not Given Documented by: Magnesium Hydroxide (Magnesium Hydroxide Susp 30 Ml Udc) 30 ml PO Q12H PRN PRN Reason: Constipation Stop: 12/31/20 19:26 Metoprolol Succinate (Metoprolol Succ 50mg Ext Rel Tab) 50 mg PO BID [facility] Stop: 12/31/20 20:59 Last Admin: 12/09/20 08:07 Dose: 50 mg Documented by: Miscellaneous (Carbohydrates For Hypoglycemia ) 15 - 30 gm PO UD PRN PRN Reason: Hypoglycemia Protocol Stop: 12/31/20 19:26 Last Admin: 12/01/20 20:23 Dose: 15 gm Documented by: Miscellaneous (Order Awaiting Action [Azelastine Nasal [place]]) 1 ea N/A QS [facility] Stop: 01/01/21 00:00 Last Admin: 12/09/20 16:44 Dose: Not Given Documented by: Ondansetron HCl (Ondansetron Inj 2 Mg/Ml 2 Ml Vial) 4 mg IV Q6H PRN PRN Reason: Nausea Stop: 12/31/20 19:26 Pantoprazole Sodium (Pantoprazole 40 Mg Tab) 40 mg PO BID [facility]; Protocol Stop: 12/31/20 20:59 Last Admin: 12/09/20 08:07 Dose: 40 mg Documented by: Polyethylene Glycol (Polyethylene (Miralax) 17 Gm Pack) 17 gm PO DAILY PRN PRN Reason: Constipation Stop: 12/31/20 19:26 Potassium Chloride (Potassium Chloride Crtab 20 Meq Tabcr) 20 meq PO DAILY [facility]IAGO Stop: 01/07/21 08:59 Last Admin: 12/09/20 08:07 Dose: 20 meq Documented by: Temazepam (Temazepam 7.5 Mg Capsule) 7.5 mg PO HS PRN PRN Reason: Sleep Stop: 12/31/20 19:26 Last Admin: 12/01/20 20:54 Dose: 7.5 mg Documented by: Trazodone HCl (Trazodone Hcl 100 Mg Tab) 100 mg PO HS PRN PRN Reason: Sleep Stop: 12/31/20 19:26 Last Admin: 12/01/20 20:56 Dose: 100 mg Documented by:
[2020-12-09] MEDS: DIGOXIN 0.125 MG TAB PO SCH (20:24)
[2020-12-10] MEDS ORDERED: MAGNESIUM SULFATE / D5W 1 GM/100 ML BAG IV ONE (04:49)
[2020-12-10] MEDS ORDERED: FUROSEMIDE 80 MG TAB PO SCH ×2 (04:50→09:00)
[2020-12-10] MEDS ORDERED: ALBUT/IPRATROP 3MG/0.5MG NEB 3 ML VIAL NEB STA (06:54)
[2020-12-10 07:39] LABS: Base Excess ABG 20.7 mEq/L (-9-1.8); HCO3 ABG 48 mmol/L (19-24); Oxygen Saturation ABG 95.5 % (90-95); PCO2 ABG 70 mmHg (35-46); PO2 ABG 78 mmHg (80-95); pH ABG 7.46 (7.35-7.45)
[2020-12-10 08:01] LABS: Allen Test Pos (Pos)
[2020-12-10] MEDS: POTASSIUM CHLORIDE CRTAB 20 MEQ TABCR PO SCH (08:23)
[2020-12-10] MEDS: ASPIRIN 81 MG CHEW PO SCH (08:23)
[2020-12-10] MEDS: PANTOprazole 40 MG TAB PO SCH (08:23)
[2020-12-10] MEDS: METOPROLOL SUCC 50MG EXT REL TAB PO SCH (08:23)
[2020-12-10] MEDS: CETIRIZINE HCL 10 MG TABLET PO SCH (08:24)
[2020-12-10] MEDS: ATORVASTATIN 40 MG TAB PO SCH (08:24)
[2020-12-10] MEDS: INSULIN ASPART 100 UNITS/ML 3 ML PEN SC SCH ×3 (08:25→16:32)
--- NOTE | 2020-12-10 08:39 | XRay Report ---
XR chest 1V portable HISTORY: Hypoxia. COMPARISON: Chest 12/09/2020. FINDINGS: No pneumothorax. A small right pleural effusion has decreased in size. The heart remains mi ldly enlarged. There is mild central pulmonary vascular congestion without overt edema. This is simil ar to the prior study. Right basilar densities have also improved and likely represents atelectasis f rom the pleural effusion. No new focal lung consolidations. IMPRESSION: 1. Interval improvement in the small right pleural effusion and right basilar densities. 2. Mild central pulmonary vascular congestion without overt edema. ACT 112: Negative or not required by law. Electronically signed by: Chris Parada M.D. 12/10/2020 8:38 AM
[2020-12-10 09:25] LABS: BUN Creatinine Ratio 29.4 (10-20); Calcium 9.1 mg/dl (8.5-10.1); Est GFR (African American) 92.1 ml/min; Est GFR (Non-African American) 79.4 ml/min; Magnesium 2.4 mg/dl (1.8-2.4); Potassium 3.4 mmol/L (3.5-5.1)
--- NOTE | 2020-12-10 09:30 | Cardiology Progress Note ---
Date of Service December 10, 2020 Assessment & Plan (1) Acute on chronic diastolic CHF (congestive heart failure): (2) Aortic stenosis: (3) Gastric ulcer: (4) Atrial fibrillation: (5) Pulmonary hypertension: Plan: 85-year-old male admitted with decompensated diastolic heart failure secondary to severe valvular disease, severe aortic stenosis. Symptoms improved with IV diuresis. Has had several runs of paroxysmal VT since admission, he is asymptomatic. Continue beta caryn. resting HR's 60-70's. PLAN -Lisinopril discontinued. Do not resume on discharge due to severe -concerns regarding elevated CO2. He is transitioning to BIPAP therapy overnight. Tolerated without issues last night. -Furosemide reduced to 80 mg once daily. (prior home dose was 60 mg daily) -supplement potassium and magnesium given VT. -continue potassium 20 meq daily. Given additional dose this morning. Keep potassium around 4-5. -BMP to be done in 1 week -Patient reports he does not wear supplemental O2 at home - needs 2 step before discharge -Patient to f/u with his cube cutter in [place]. Consider future valve intervention (patient previously declined) Will send message to [place] cardiology about sooner return visit for close monitoring. Case discussed with Dr. Ca Admission and Anticipated Discharge Date Admission Date: December 01, 2020 Supervising Physician Co-Signing Physician Notes Patient seen and examined chart and telemetry reviewed. Patient insisting on discharge today medications and issues addressed as above. Will need close clinical follow-up post discharge CHF instructions given Subjective Patient resting in bed comfortably. Transitioned to BIPAP overnight. Tolerated without issues. He denies SOB or chest pain this morning. Hoping to go home today. He had 18 beat run of VT yesterday afternoon but does not recall symptoms . Edema resolved since admission. No fever, cough, chills Review of Systems Review of Systems: All systems reviewed & are unremarkable except as noted in HPI & below Physical Exam Constitutional: WD/WN, vitals as above Eyes: PERRL, conjunctivae normal, anicteric sclerae ENMT: external ear and nose normal, oropharynx normal Neck: trachea midline, no thyromegaly Respiratory: normal respiratory effort, lungs clear to auscultation Auscultation: + diminished lung sounds (but clear, no rales or wheezes) Cardiovascular: Rate/Rhythm: + irregularly irregular Heart Sounds: + murmur (Harsh grade 3/6 systolic murmur no diastolic); no gallop Palpation: normal PMI Vessels: normal carotid upstroke and radial pulses present; no JVD and no carotid bruit Extremities: no edema (No significant edema. compression stockings in place) Gastrointestinal (Abdomen): normal bowel sounds, soft, nontender, no hepatosplenomegaly Musculoskeletal: no cyanosis or clubbing, extremities motor strength 5/5 Skin: no rashes, warm and dry Neurologic: PERRL, EOMI, accommodation nl, no face palsy, no dysarthria Psychiatric: A+Ox3, euthymic affect Results & Data ([facility]) Vital Signs (Past 12 Hours) Vital Signs Temp Pulse Pulse Pulse Pulse Pulse Pulse 12/10/20 07:53 62 12/10/20 07:49 36.6 C 74 12/10/20 07:17 73 73 12/10/20 06:44 12/10/20 05:22 67 12/10/20 04:14 36.4 C L 12/10/20 03:01 69 12/10/20 02:55 62 12/10/20 02:46 36.1 C L 68 12/10/20 01:17 65 12/10/20 00:16 66 12/09/20 23:50 64 12/09/20 22:43 36.6 C 64 12/09/20 22:00 62 12/09/20 21:55 62 Resp BP Pulse Ox Pulse Ox Pulse Ox Pulse Ox 12/10/20 07:53 12/10/20 07:49 19 133/75 92 12/10/20 07:17 20 96 12/10/20 06:44 92 12/10/20 05:22 26 H 148/62 H 94 12/10/20 04:14 12/10/20 03:01 98 12/10/20 02:55 19 97 12/10/20 02:46 19 135/65 97 12/10/20 01:17 12/10/20 00:16 92 12/09/20 23:50 85 L 12/09/20 22:43 17 111/63 94 12/09/20 22:00 92 12/09/20 21:55 23 92 Laboratory Results 09/09/21 09/09/21 09/09/21 Range/Units 07:20 07:19 07:19 ABG pH 7.46 H (7.35-7.45) ABG pCO2 70 H (35-46) mmHg ABG pO2 78 L (80-95) mmHg ABG HCO3 48 H (19-24) mmol/L ABG O2 Saturation 95.5 H (90-95) % ABG Base Excess 20.7 H (-9-1.8) mEq/L Josafat Test Pos (Pos) Barometric Pressure 728.2 mm/Hg Oxygen Given 7L Sodium 140 (136-145) mmol/L Potassium 3.4 L (3.5-5.1) mmol/L Chloride 92 L (98-107) mmol/L Carbon Dioxide Pending Anion Gap Pending BUN 26 H (7-18) mg/dl Creatinine 0.88 (0.6-1.4) mg/dl Est Cr Clr Drug Dosing 62.0 ml/min Est GFR ( Amer) 92.1 ml/min Est GFR (Non-Af Amer) 79.4 ml/min BUN/Creatinine Ratio 29.4 H (10-20) Glucose 150 H (70-99) mg/dl POC Glucose 137 H (70-99) mg/dl Calcium 9.1 (8.5-10.1) mg/dl Magnesium 2.4 (1.8-2.4) mg/dl 12/09/20 12/09/20 12/09/20 Range/Units 20:26 16:34 11:19 ABG pH (7.35-7.45) ABG pCO2 (35-46) mmHg ABG pO2 (80-95) mmHg ABG HCO3 (19-24) mmol/L ABG O2 Saturation (90-95) % ABG Base Excess (-9-1.8) mEq/L Josafat Test (Pos) Barometric Pressure mm/Hg Oxygen Given Sodium (136-145) mmol/L Potassium (3.5-5.1) mmol/L Chloride (98-107) mmol/L Carbon Dioxide Anion Gap BUN (7-18) mg/dl Creatinine (0.6-1.4) mg/dl Est Cr Clr Drug Dosing ml/min Est GFR ( Amer) ml/min Est GFR (Non-Af Amer) ml/min BUN/Creatinine Ratio (10-20) Glucose (70-99) mg/dl POC Glucose 246 H 166 H 105 H (70-99) mg/dl Calcium (8.5-10.1) mg/dl Magnesium (1.8-2.4) mg/dl Diagnostic Findings Telemetry reviewed - chronic afib, rates controlled. He had one episode of paroxysmal VT around 13:30 yesterday, lasting 18 beats Medications Administered Current Inpatient Medications Acetaminophen (Acetaminophen 325 Mg Tab) 650 mg PO Q4H PRN PRN Reason: Pain or Fever Stop: 12/31/20 19:26 Al Hydrox/Mg Hydrox/Simethicone (Aluminum/Magnesium Susp 30 Ml Udc) 15 ml PO Q4H PRN PRN Reason: Dyspepsia Stop: 12/31/20 19:26 Aspirin (Aspirin 81 Mg Chew) 81 mg PO DAILY SANTIAGO Stop: 01/01/21 08:59 Last Admin: 12/10/20 08:23 Dose: 81 mg Documented by: Atorvastatin Calcium (Atorvastatin 40 Mg Tab) 80 mg PO DAILY SANTIAGO Stop: 01/01/21 08:59 Last Admin: 12/10/20 08:24 Dose: 80 mg Documented by: Cetirizine HCl (Cetirizine Hcl 10 Mg Tablet) 10 mg PO DAILY SANTIAGO Stop: 01/01/21 08:59 Last Admin: 12/10/20 08:24 Dose: 10 mg Documented by: Dextrose (Dextrose 50% 50 Ml Syringe) 25 - 50 ml IV UD PRN; Protocol PRN Reason: Hypoglycemia Protocol Stop: 12/31/20 19:26 Digoxin (Digoxin 0.125 Mg Tab) 0.125 mg PO PM SANTIAGO Stop: 12/31/20 20:59 Last Admin: 12/09/20 20:24 Dose: 0.125 mg Documented by: Enoxaparin Sodium (Enoxaparin Inj 40 Mg/0.4 Ml Syr) 40 mg SQ Q12H SANTIAGO Stop: 12/31/20 21:59 Last Admin: 12/09/20 22:10 Dose: 40 mg Documented by: Furosemide (Furosemide 80 Mg Tab) 80 mg PO QAM SANTIAGO Stop: 01/09/21 04:49 Last Admin: 12/10/20 05:24 Dose: 80 mg Documented by: Glucagon (Glucagon For Inj 1 Mg Vial) 1 mg SQ UD PRN; Protocol PRN Reason: Hypoglycemia Protocol Stop: 12/31/20 19:26 Glucose (Glucose 10 Tabs/Tube) 4 - 8 tabs PO UD PRN; Protocol PRN Reason: Hypoglycemia Protocol Stop: 12/31/20 19:26 Glucose (Glucose 40% Gel 15 Gm Tube) 15 - 30 gm PO UD PRN; Protocol PRN Reason: Hypoglycemia Protocol Stop: 12/31/20 19:26 Insulin Aspart (Insulin Aspart 100 Units/Ml 3 Ml Pen) 0 units SC ACHS SANTIAGO Stop: 12/31/20 20:59 Last Admin: 12/10/20 08:25 Dose: Not Given Documented by: Magnesium Hydroxide (Magnesium Hydroxide Susp 30 Ml Udc) 30 ml PO Q12H PRN PRN Reason: Constipation Stop: 12/31/20 19:26 Metoprolol Succinate (Metoprolol Succ 50mg Ext Rel Tab) 50 mg PO BID [facility] Stop: 12/31/20 20:59 Last Admin: 12/10/20 08:23 Dose: 50 mg Documented by: Miscellaneous (Carbohydrates For Hypoglycemia ) 15 - 30 gm PO UD PRN PRN Reason: Hypoglycemia Protocol Stop: 12/31/20 19:26 Last Admin: 12/01/20 20:23 Dose: 15 gm Documented by: Miscellaneous (Order Awaiting Action [Azelastine Nasal [place]]) 1 ea N/A QS [facility] Stop: 01/01/21 00:00 Last Admin: 12/10/20 08:23 Dose: Not Given Documented by: Ondansetron HCl (Ondansetron Inj 2 Mg/Ml 2 Ml Vial) 4 mg IV Q6H PRN PRN Reason: Nausea Stop: 12/31/20 19:26 Pantoprazole Sodium (Pantoprazole 40 Mg Tab) 40 mg PO BID [facility]; Protocol Stop: 12/31/20 20:59 Last Admin: 12/10/20 08:23 Dose: 40 mg Documented by: Polyethylene Glycol (Polyethylene (Miralax) 17 Gm Pack) 17 gm PO DAILY PRN PRN Reason: Constipation Stop: 12/31/20 19:26 Potassium Chloride (Potassium Chloride Crtab 20 Meq Tabcr) 20 meq PO DAILY [facility] Stop: 01/07/21 08:59 Last Admin: 12/10/20 08:23 Dose: 20 meq Documented by: Temazepam (Temazepam 7.5 Mg Capsule) 7.5 mg PO HS PRN PRN Reason: Sleep Stop: 12/31/20 19:26 Last Admin: 12/01/20 20:54 Dose: 7.5 mg Documented by: Trazodone HCl (Trazodone Hcl 100 Mg Tab) 100 mg PO HS PRN PRN Reason: Sleep Stop: 12/31/20 19:26 Last Admin: 12/01/20 20:56 Dose: 100 mg Documented by:
[2020-12-10] MEDS ORDERED: POTASSIUM CHLORIDE CRTAB 20 MEQ TABCR PO ONE (09:36)
[2020-12-10] MEDS: ENOXAPARIN INJ 40 MG/0.4 ML SYR SQ SCH (10:10)
--- NOTE | 2020-12-10 12:18 | Pulmonology Progress Note ---
Date of Service December 10, 2020 Assessment & Plan (1) GALEN (obstructive sleep apnea): Plan: Attending: Dr. Cruz Impression: This is an 85-year-old male with a history of obstructive sleep apnea on CPAP at home, acute on chronic diastolic congestive heart failure, severe aortic stenosis, pulmonary hypertension, atrial fibrillation, and obesity. The patient presents with shortness of breath and found to be in acute exacerbation of CHF. He was diuresed and improved significantly. He does require supplemental oxygen at this time with 2 L/min via nasal cannula at rest and 4 L/min by nasal cannula with exertion. He currently has a concentrator at home and has 2 L/min of supplemental oxygen bled into his CPAP machine. We are consulted for evaluation of increasing PCO2 and disposition on discharge. Recommendations: 1. Obstructive sleep apnea: * Did not find any evidence of polysomnography exam in [facility] or [facility] * Patient states that he follows with a director web in the [place] area * I contacted [facility]. Patient's most recent order for CPAP was 10/29/2019 for a 5-year contract at 14 cm of water. * Unclear as to when last titration study was completed * Compliance report as of 11/30/2020 shows good usage with up to 17 hours/day sleep. * AHI was 18.3 suggesting failure on CPAP. * At this time, patient will require BiPAP due to elevated AHI and rising PCO2. Patient is at increased risk of due to his obstructive disease and requires continued positive air pressure therapy. Approval obtained for BiPAP with settings of 15/10 and 2 L/min bled in at bedtime. Rx for BiPAP sent to [facility]. * Comorbid conditions include obstructive sleep apnea, congestive heart failure, obesity * Will work with case management to get BiPAP approval * Recommend follow-up with either sleep medicine [facility] or with [facility] physician group if the patient desires * Increase BiPAP settings tonight to 15/10 and bleeding 2 L/min of supplemental oxygen * Repeat ABG this morning with pH 7.46, pCO2 70, pO2 78, pHCO3 48 -slight i mprovement from yesterday's ABG with a full night of BiPAP 2. Hypoxia: * Two-step evaluation completed yesterday. Patient qualifies for supplemental oxygen at 2 L/min via nasal cannula rest and 4 L/min via nasal cannula with exertion.Rx for supplemental oxygen sent to DME * Most recent chest x-ray is from 11/30/2020. * Chest x-ray yesterday shows layering pleural effusion on the right as well as a minor effusion on the left * Repeat chest x-ray this morning shows interval improvement of right-sided pleural effusion. No intervention at this time. Continue diuresis * Patient with no tobacco abuse history * Denies other pulmonary disease * Discharge home when ready based on two-step and will reevaluate outpatient * No pulmonary function test results available * Patient is not on any bronchodilators or other pulmonary medications at home. * Patient agreeable to following up with sleep medicine lab with [facility]. Call made for appointment. 3. CHF/atrial stenosis/atrial fibrillation: * This is being well managed by cardiology * Continue diuresis * Comorbidities contributing to hypercapnia * Follow-up in CHF clinic From a pulmonary perspective, patient is ready for discharge home. Recommend follow-up with the [facility] sleep lab for evaluation by Dr. Dillard or Dr. Farooq. Pulmonary will sign off at this time. Please feel free to reconsult as needed (2) Hypercapnia with mixed acid-base disorder: (3) Aortic stenosis: (4) Acute on chronic diastolic CHF (congestive heart failure): Admission and Anticipated Discharge Date Admission Date: December 01, 2020 Subjective Attending: Dr. Cruz Patient seen and examined at bedside. He is currently in bed and very comfortable. He states he slept well last night with the BiPAP with increased settings of 15/10 and 2 L of supplemental oxygen bled in. He again reiterates that he uses CPAP at home regularly. This was confirmed with compliance report yesterday. Patient denies any cough or sputum production. No fever. At this time, patient has no acute complaints and desires to be discharged home. Review of Systems Review of Systems: All systems reviewed & are unremarkable except as noted in Subjective Physical Exam Physical Exam: GENERAL : No acute distress. EYES: No icterus, gaze conjugate NOSE: No evidence of epistaxis. Nasal cannula in place and secure MOUTH: No lesions or candidiasis. Mucosa moist NECK: Supple. No appreciation of carotid bruits LUNGS: CTA B/L, no wheezes, rales or rhonchi. Decreased breath sounds at bilateral bases slightly improved today. HEART: Irregular irregular, rate controlled in the 70s ABDOMEN: Soft, NT, ND, BS Present EXTREMITIES: No LE edema, pedal pulses intact and equal bilaterally NEURO: A&OX3 Results & Data Results & Data ([facility]) Vital Signs (Past 12 Hours) Vital Signs Temp Pulse Pulse Pulse Pulse Pulse Resp 12/10/20 07:53 62 12/10/20 07:49 36.6 C 74 19 12/10/20 07:17 73 73 20 12/10/20 06:44 12/10/20 05:22 67 26 H 12/10/20 04:14 36.4 C L 12/10/20 03:01 69 12/10/20 02:55 62 19 12/10/20 02:46 36.1 C L 68 19 12/10/20 01:17 65 12/10/20 00:16 66 BP Pulse Ox Pulse Ox Pulse Ox 12/10/20 07:53 12/10/20 07:49 133/75 92 12/10/20 07:17 96 12/10/20 06:44 92 12/10/20 05:22 148/62 H 94 12/10/20 04:14 12/10/20 03:01 98 12/10/20 02:55 97 12/10/20 02:46 135/65 97 12/10/20 01:17 12/10/20 00:16 92 Laboratory Results 12/08/20 05:33 12/10/20 07:19 Diagnostic Findings Chest X-Ray 12/10/20 06:45 XR chest 1V portable HISTORY: Hypoxia. COMPARISON: Chest 12/09/2020. FINDINGS: No pneumothorax. A small right pleural effusion has decreased in size. The heart remains mildly enlarged. There is mild central pulmonary vascular congestion without overt edema. This is similar to the prior study. Right basilar densities have also improved and likely represents atelectasis from the pleural effusion. No new focal lung consolidations. IMPRESSION: 1. Interval improvement in the small right pleural effusion and right basilar de nsities. 2. Mild central pulmonary vascular congestion without overt edema. ACT 112: Negative or not required by law. Electronically signed by: Chris Parada M.D. 12/10/2020 8:38 AM PG Care Time/CCT Total # of Minutes Spent Total Time Spent with Patient: Total time spent is greater than 50% in coordination of care (as documented) at patient's floor/unit and/or counseling patient: Coding Level of Care Code 39691 Subseq Hosp Care Lvl 3 Diagnoses GALEN (obstructive sleep apnea) G47.33 Hypercapnia with mixed acid-base disorder E87.4 Aortic stenosis I35.0 Acute on chronic diastolic CHF (congestive heart failure) I50.33 Time Spent (min) 30 Comment 30 minutes of time spent coordinating discharge and coordinating DME provisions.
--- NOTE | 2020-12-11 08:39 | Discharge Summary ---
Date of Service December 11, 2020 Admission HPI Per Admitting Provider This is a 85-year-old male who has significant past medical history of chronic HFrEF, severe , chronic atrial fibrillation not on anticoagulation secondary to recent GI bleed and patient refusal, HTN, HLD, GALEN on CPAP, T2DM with retinopathy who presents to ED secondary to worsening lower extremity x2 weeks. is at bedside. Of significance patient was seen and evaluated in the [facility] ED on 11/17 secondary to worsening lower extremity swelling as well as redness. Patient admits to being noncompliant with Lasix. During ER evaluation he was noted to have significantly elevated proBNP in the 6000's, and was discharged encouraged to be compliant with oral Lasix. He was also given 5 days of Keflex for possible cellulitis. states over the past 2 weeks she has not noticed any improvement in lower extremities and he is having worsening of his swelling. Patient also complains of increased fatigability, decreased appetite, shortness breath with little exertion, orthopnea and PND. He sleeps on 3 pillows at night. He denies karlo weight loss as he is actually lost 50 pounds in the last year due to significant decrease in appetite. He does admit to requiring a aortic valve replacement and was actually seen in [place] and ready to undergo procedure when he was found to have a bleeding gastric ulcer secondary to anticoagulation. Since then he has refused anticoagulation and is not willing to go back for procedure. In ED patient remained hemodynamically stable. Lab abnormalities notable for H&H 12.7 and 38.5, BUN 51, creatinine 0.99, glucose 47, troponin 0.080, proBNP 6608, digoxin 0.7. Chest x-ray consistent with small right pleural effusion. He received 40 mg IV Lasix in ED. He is still for put out 200 mL. Admission Exam Per Admitting Provider Constitutional: WD/WN, elderly, male, hard of hearing vitals as above, NAD, sitting up in bed, pleasant, conversing easily Head: Normocephalic, Atraumatic Eyes: PERRL, conjunctivae normal, anicteric sclerae ENMT: Hard of hearing, external ear and nose normal, oropharynx normal Neck: trachea midline, no thyromegaly normal visual inspection Respiratory: normal respiratory effort, lungs clear to auscultation, no wheeze, rales, rhonchi. Normal insp/exp effort, no accessory muscle use Cardiovascular: Irregular rate, irregular rhythm, harsh 2/6 SD noted RUSB, +3 lower extremity pretibial and pedal edema, pretibial venous stasis insufficiency noted, no warmth vessels: no JVD or carotid bruit Chest: normal inspection of chest Abdomen: normal bowel sounds, soft, nontender, no hepatosplenomegaly Musculoskeletal: no cyanosis or clubbing, extremities motor strength 5/5 Skin: no rashes, warm and dry normal turgor Neurologic: PERRL, EOMI, accommodation nl, no face palsy, no dysarthria CN's II-XI intact bilaterally and moves all extremities Psychiatric: A+Ox3, euthymic affect Lymphatic: no cervical or axillary lymphadenopathy : deferred Principal Diagnosis Heart failure Discharge Exam General: A&Ox3 HENT: NCAT, MMM, EOMI Eyes: PERRLA Neck: Supple, normal range of motion CVS: normal rate and rhythm Resp: b/l basal crackles apprecaited Abdomen: Soft, ND/NT, +BS Extremities: No c/c/e Neuro: face symmetric, strength grossly equal, no focal deficit Skin: warm and dry, no rashes/lesions/errythema Discharge Data Allergies Allergy/AdvReac Type Severity Reaction Status Date / Time No Known Allergies Allergy Unverified 12/01/20 17:09 Consultations 12/01/20 16:53 ED Decision to Admit Stat 12/01/20 17:41 Consult Cardiology Routine 12/09/20 08:50 Consult Pulmonology Routine Hospital Course (1) Acute on chronic diastolic CHF (congestive heart failure): Presented with increasing lower extremity edema for 2 weeks with increasing shortness of breath Has acute on chronic diastolic heart failure. Echo showed: Moderate concentric LVH with paradoxical septal motion consistent with right ventricular volume overload. EF 55 to 60%. Severe calcific aortic valve stenosis. Trace MR and trace TR and right ventricle is mildly dilated Cardiolgoy was consulted. No evidence of ACS Will need CHF clinic follow-up and cardiology appointment in [place] on discharge with PRP We will need 2 L at rest and 4 L with ambulation. Patient was also discharged on BiPAP. Patient was diuresed extensively during his hospitalization. He was discharged on Lasix 80 mg daily. (2) Acute on chronic HFrEF (heart failure with reduced ejection fraction): Acute on chronic HFrEF has been ruled out by echo (3) Aortic stenosis: Severe valvulopathy with indications for replacement. Per cardiology note and discussion with patient, he is not interested at this time. Aortic stenosis is contributing the heart failure Denies any chest pain and/or syncope Lisinopril will not be continued (4) Pulmonary hypertension: noted on records. Right ventricular systolic pressure is elevated at 40 to 50 mmHg (5) Atrial fibrillation: Persistent atrial fibrillation on telemetry. Rate controlled with metoprolol and digoxin, not on anticoagulation due to prior history of GI bleed Heart rate remains stable (6) Diabetes: Continue with basal bolus insulin. Repeat A1c on 12/02 was 6.2. I called his on 12/11 and requested her to notify him to stop talking glipizide for now due to hypoglycemia. (7) GALEN (obstructive sleep apnea): Continue CPAP at bedtime. Strongly advised to use CPAP at night (8) HTN (hypertension): Blood pressure on the low side, home lisinopril was held. He continues on furosemide twice daily for diuresis efforts. Continue metoprolol succinate 50 mg p.o. twice daily per home regimen. Total Time Total Time Spent Total Time Spent (In Minutes): 35 Discharge Plan Discharge Items Patient Disposition: Home - Self-Care Reason For Visit: DECOMPENSATION OF HFrEF Discharge Diagnosis: Heart failure Activity: Resume your previous activity Non-emergency contact: Primary Care Provider Call non-emergency contact if: your symptoms worsen Follow-up/Referrals: Ingris Floyd MD [Outside Practitioners] - (Date & Time 01/07/2021 11:30 AM Provider Ingris Floyd MD Department Cardiology [facility] ) Lanie Jean PA-C [Primary Care Provider] - (Date & Time 12/15/2020 3:00 PM Provider Lanie Jean PA-C Department [facility] ) Diet: Heart Healthy Addtl Attending Provider Instructions: Follow-up with your primary care physician, under sheriff and sleep medicine as an outpatient. Pending Studies at Discharge: No Stand-Alone Forms: [employer] party supplies [employer] rentals, Smoking Cessation Medications and DC Order Prescriptions: New furosemide 80 mg Tablet 80 mg PO QAM Qty: 30 RF: 0 Continued atorvastatin [Lipitor] 80 mg tablet 80 mg PO QAM RF: 0 rabeprazole [AcipHex] 20 mg tablet,delayed release (DR/EC) 20 mg PO BID RF: 0 cetirizine 10 mg Tablet 10 mg PO DAILY RF: 0 temazepam [Restoril] 7.5 mg capsule 7.5 mg PO HS PRN (Reason: Sleep) RF: 0 trazodone 100 mg tablet 100 mg PO HS PRN (Reason: Sleep) RF: 0 metformin 1,000 mg tablet 1,000 mg PO BIDWMEAL RF: 0 aspirin 81 mg Tablet,Chewable 81 mg PO QAM RF: 0 digoxin [Digox] 125 mcg (0.125 mg) tablet 125 mcg PO PM RF: 0 metoprolol succinate [Toprol XL] 25 mg tablet extended release 24 hr 50 mg PO BID RF: 0 azelastine 137 mcg (0.1 %) aerosol,spray 1 spray INTRANASAL BID RF: 0 glipizide 10 mg Tablet Extended Release 24hr 10 mg PO DAILY RF: 0 ferrous sulfate 325 mg (65 mg iron) Tablet 325 mg PO QAM RF: 0 Changed potassium chloride [Klor-Con 10] 10 mEq tablet extended release 20 meq PO BID Qty: 0 RF: 0 Discontinued lisinopril [Zestril] 5 mg tablet 2.5 mg PO QAM RF: 0 furosemide [Lasix] 20 mg tablet 60 mg PO QAM RF: 0 Discharge Orders: Discharge Order (Routine); Ordered 12/10/20 Ordered By: Irena Wu/Other Patient Handouts: Hypoglycemia (Low Blood Sugar), Managing Type 2 Diabetes Admission Data Admit Date/Time: 12/01/20 17:41 Attending Provider: Irena Pineda Admit Provider: Gabe Warner Primary Care Provider: Lanie Jean Other Providers: Gabe Warner ; Tenzin Call Sabrina M. ; Antonio Cruz Other Interventions: Discharge Summary Assessment (RN) Last Done: 12/10/20 16:10
== END 2020-12-10 17:55 | disposition home health service (06) | DRG 291 ==
LOC: ED 13:54 → 2S 17:41 → SUATTDRO 17:41 → 2S 19:02